=== PATIENT | female | born 1940 | race Caucasian/White ===

== ENCOUNTER 2022-10-02 09:25 | Inpatient (IN) | payer MEDICARE, SELFPAY ==
[2022-10-02] VITALS (32 sets, daily range): BP systolic 122–202; BP diastolic 54–161; PULSE 50–87; RESP 16–39; TEMP 36.3–36.6; O2SAT 93–100; BMI 21.5
--- NOTE | ~2022-10-02 | US_ITS ---
US abdomen limited DATE: 10/03/2022 09:12 INDICATION: Elevated liver function tests TECHNIQUE: Real-time imaging and Doppler analysis of liver, pancreas, gallbladder COMPARISON: None FINDINGS: No hepatic or pancreatic space-occupying mass lesion. Normal hepatopedal portal venous flow direction. No gallstones or gallbladder wall thickening or abnormal pericholecystic fluid collection . Negative sonographic Hyde's sign. The common bile duct measures up to 5 mm, normal. IMPRESSION: Negative Reviewed, dictated and finalized at [facility]. Reviewed, dictated and finalized at [facility]. ICAL CYTOGENETICIST SCIENTIST IMPRESSION: Negative
--- NOTE | ~2022-10-02 | XR_ITS ---
EXAMINATION: XR chest 1V portable Exam Date/Time: 10/05/2022 16:10 WELDER REPAIR HISTORY: shortness of breath Comparison: 10/02/2022. RESULT: Lines, tubes, and devices: None. Lungs and pleura: Unchanged diffuse reticular opacities, patchy mid and lower lung groundglass opaci ties, and bilateral angle blunting. Cardiomediastinal silhouette: Stable. Other: No acute osseous or upper abdominal finding. IMPRESSION: Unchanged pulmonary opacities likely representing multifocal pneumonia and/or pulmonary edema. Small bilateral effusions. Reviewed, dictated and finalized at [facility]. ER REPAIR IMPRESSION: Unchanged pulmonary opacities likely representing multifocal pneumonia and/or p ulmonary edema. Small bilateral effusions.
--- NOTE | ~2022-10-02 | XR_ITS ---
XR chest 1V portable DATE: 10/02/2022 09:45 INDICATION: Shortness of breath. Hypoxia. TECHNIQUE: Portable AP chest on 10/02/2022 at 0942 hours COMPARISON: None FINDINGS: Bilateral hyperinflation may be due to COPD. Heavily chest however considerably this appear ance. There are patchy bilateral mid and lower lung infiltrates, most prominent in the mid lung cao, rig ht greater than left. Findings suggest bilateral pneumonia. Pulmonary edema is an additional consider ation. There is a small right pleural effusion. Cardiomegaly. Aortic calcification and mild unfolding. Diffuse osteopenia. IMPRESSION: Bilateral primarily mid and lower lung infiltrates; diffusion diagnosis includes pneumoni a and pulmonary edema Cardiomegaly, mild right pleural effusion Aortic calcification Osteopenia Reviewed, dictated and finalized at location [facility]. CIAL ASSISTANT IMPRESSION: Bilateral primarily mid and lower lung infiltrates; diffusion diagn osis includes pneumonia and pulmonary edema Cardiomegaly, mild right pleural effusion Aortic calcification Osteopenia
--- NOTE | 2022-10-02 09:33 | ECG_ITS ---
Measurements Intervals [place] Rate: 67 P: 70 HI: 155 QRS: 76 QRSD: 90 T: 65 QT: 423 QTc: 447 Interpretive Statements SINUS RHYTHM POSSIBLE RIGHT ATRIAL ENLARGEMENT POSSIBLE LEFT ATRIAL ENLARGEMENT BORDERLINE R WAVE PROGRESSION, ANTERIOR LEADS BORDERLINE ST ABNORMALITY- INF/LAT LEADS BASELINE ARTIFACT- I, II, III, AVR, AVL, AVF, V1-V6 BORDERLINE ECG NO PREVIOUS ECG AVAILABLE FOR COMPARISON Electronically Signed On 10-02-2022 14:30:59 [employer] by Tomas Feliciano D.O.
--- NOTE | 2022-10-02 09:37 | ED.SOB ---
HPI - SOB/Dyspnea General Chief Complaint: Shortness of Breath/Dyspnea Stated Complaint: sob since 0300 History of Present Illness HPI Narrative: HPI limited due to acuity of illness This is an 82-year-old female with reported history of COPD, presented emergency department complaining of shortness of breath beginning at 3:00 this morning. She states he has been coughing with nonbloody sputum and denies fevers. She denies chest pain and has lower leg swelling. EMS reports on arrival the patient was satting in the 80s on room air, she was started on 4 L O2 with improvement to the mid 90s. No other treatments were given in route. Related Data Home Medications Medication Instructions Recorded Confirmed acetaminophen 325 mg tablet 650 mg PO Q4H PRN Pain 10/02/22 10/02/22 albuterol sulfate 90 mcg/actuation 2 puff inhalation Q6H PRN 10/02/22 10/02/22 aerosol inhaler Shortness Of Breath amiodarone 200 mg tablet 200 mg PO DAILY 10/02/22 10/02/22 amlodipine 5 mg tablet 5 mg PO DAILY 10/02/22 10/02/22 apixaban 2.5 mg tablet (Eliquis) 2.5 mg PO BID 10/02/22 10/02/22 aspirin 81 mg tablet,delayed 81 mg PO DAILY 10/02/22 10/02/22 release budesonide-formoterol HFA 160 2 puff inhalation BID 10/02/22 10/02/22 mcg-4.5 mcg/actuation aerosol inhaler (Symbicort) clonidine HCl 0.1 mg tablet 0.1 mg PO TID PRN Hypertension 10/02/22 10/02/22 folic acid 1 mg tablet 1 mg PO DAILY 10/02/22 10/02/22 lorazepam 0.5 mg tablet 0.5 mg PO Q8H PRN anxiety 10/02/22 10/02/22 metoprolol tartrate 50 mg tablet 100 mg PO BID 10/02/22 10/02/22 Allergies Allergy/AdvReac Type Severity Reaction Status Date / Time No Known Allergies Allergy Verified 10/02/22 09:46 Review of Systems Review of Systems: CONSTITUTIONAL: Fevers denies chills, or sweats. EYES: Denies visual changes, redness, or discharge. ENT: Denies rhinorrhea, congestion, sore throat, or otalgia. CARDIOVASCULAR: Denies chest pain, palpitations, or edema. RESPIRATORY: Cough and dyspnea GASTROINTESTINAL: Denies abdominal pain, nausea, vomiting, or diarrhea. GENITOURINARY: Denies dysuria or hematuria. SKIN: Denies rash or itching. MUSCULOSKELETAL: Denies back pain, joint pain, or myalgia. NEUROLOGIC: Denies headache, numbness, dizziness, or weakness. PSYCHIATRIC: Denies anxiety or depression. [facility] Past Medical History Medical History (Updated 10/02/22 @ 13:49 by Rina Gramajo PA-C) Chronic anticoagulation Chronic obstructive pulmonary disease Hypertension Paroxysmal atrial fibrillation Social History Social History Years smoked: 25 Smoking status: Former smoker Alcohol intake: former Substance use: never Substance use type: does not use Spiritual care concerns: No Exam Narrative: GENERAL: Well-developed, well-nourished, in mild distress due to dyspnea HEAD: Normocephalic, atraumatic. EYES: PERRLA and EOMI. ENT: Nares clear, no rhinorrhea or epistaxis. Mucous membranes moist. Oropharynx without tonsillar hypertrophy exudate or other lesions. NECK: Supple. No adenopathy or masses. No carotid bruits or JVD CHEST: Poor aeration bilaterally with rhonchi, no noted wheeze. Patient intermittently coughs with small amount of sputum HEART: Regular rate and rhythm. No murmur heard. Normal peripheral pulses. ABDOMEN: Soft, nontender, nondistended, normal active bowel sounds. EXTREMITIES: Normal range of motion. Trace bilateral lower extremity edema SKIN: Warm, dry, no rash. NEURO: No focal deficits. Alert and oriented x3. PSYCH: Normal mood and affect. Course Course Emergency Course: 12:05 - Chest x-ray shows pulmonary infiltrates and pattern consistent with pulmonary edema. Initial troponin negative. EKG not concerning for STEMI. Labs show BNP elevation to 1530 but otherwise unremarkable. Age-adjusted D-dimer is negative. White blood cell count 14.1 with hemoglobin 13 and platelets of 283. I suspect pneum
[2022-10-02 09:43] LABS: Basophils Absolute Auto 0.1 K/mm3 (0.0-0.1); Basophils Percent Auto 0.5 % (0.2-1.2); Eosinophils Absolute Auto 0.1 K/mm3 (0-0.3); Eosinophils Percent Auto 0.8 % (0-4.4); Hematocrit 42.4 % (37.0-47.0); Hemoglobin 13.7 g/dL (12.0-15.0); Immature Granulocyte Absolute 0.08 K/mm3 (0.00-0.031); Immature Granulocyte Percent A 0.6 % (0-0.5); Lymphocytes Absolute Auto 1.08 K/mm3 (0.9-3.2); Lymphocytes Percent Auto 7.7 % (18.3-44.2); Mean Corpuscular HGB Conc 32.3 g/dl (32-36); Mean Corpuscular Hemoglobin 32.4 pg (26-34); Mean Corpuscular Volume 100.2 fl (80-100); Mean Platelet Volume 9.7 fl (7.4-10.4); Monocytes Absolute Auto 1.2 K/mm3 (0.1-0.6); Monocytes Percent Auto 8.2 % (2.6-8.5); Neutrophils Absolute Auto 11.6 K/mm3 (1.3-6.7); Neutrophils Percent Auto 82.2 % (45.5-73.1); Platelet Count Result 283 k/mm3 (150-375); Red Blood Count 4.23 M/mm3 (4.2-5.4); Red Cell Distribution Width 13.8 % (11.5-14.5); White Blood Count 14.1 K/mm3 (4.5-10.0)
[2022-10-02 09:52] LABS: Lactic Acid Reflex 1.3 mmol/L (0.7-2.0)
[2022-10-02 09:54] LABS: Alanine Aminotransferase 127 U/L (6-35); Albumin Level 4.7 g/dL (3.5-5.1); Alkaline Phosphatase 131 U/L (38-126); Anion Gap 10 mmol/L (8-16); Aspartate Amino Transferase 76 U/L (14-36); Bilirubin,Total 0.8 mg/dL (0.2-1.3); Blood Urea Nitrogen 19 mg/dL (7-17); Calcium 9.4 mg/dL (8.4-10.2); Carbon Dioxide 30 mmol/L (22-30); Chloride 96 mmol/L (98-107); Estimated CRCL calculation 45 ml/min; Estimated Glomerular Filt Rate > 60; Glucose 108 mg/dL (65-110); Potassium 4.1 mmol/L (3.4-5.0); Sodium 136 mmol/L (137-145)
--- NOTE | 2022-10-02 10:00 | PC.NURSE ---
pts desat on 6 l nc. placed 15 l nrb. pt continuously pulling mask off. pt anxious, attempting to get out of bed. multiple family at bedside. ativan given per order.
[2022-10-02 10:03] LABS: D Dimer 0.67 ug/mL (<0.48)
[2022-10-02 10:05] LABS: NT Pro B Type Natriuretic Pept 1530 pg/mL (5-100); Troponin I < 0.012 ng/mL (0.000-0.034)
[2022-10-02] MEDS: LORazepam (*CRX) 0.5 MG TABLET PO ×2 (10:11→23:29)
[2022-10-02 10:18] LABS: Influenza A QL RT-PCR Negative (Negative); Influenza B QL RT-PCR Negative (Negative); SARS-CoV-2 RNA PCR Negative
[2022-10-02] MEDS: ALBUTEROL SULFATE NEB 2.5 MG/3 ML INH 5 MG INHALATION (10:18)
[2022-10-02] MEDS: IPRATROPIUM BR 0.02% INH SOLN 0.5 MG/2.5 ML VIAL INHALATION (10:18)
[2022-10-02] MEDS: LORazepam INJ (*CRX) 2 MG/ML VIAL (10:21)
[2022-10-02] MEDS: FUROSEMIDE INJ 40 MG/4 ML VIAL IV PUSH (12:25)
[2022-10-02 12:54] LABS: Alveolar/Arterial O2 Gradient 158.9 mmHg; Base Excess ABG 0.2 mEq/l (+/-2.0); Fractional Inspired Oxygen 40 %; HCO3 ABG 23.8 mEq/l (22.0-26.0); Oxygen Content ABG 16.2 %vol (16.0-22.0); Oxygen Saturation ABG 96.9 % (95.0-100.0); Oxyhemoglobin 94.8 % THb (90.0-100.0); PCO2 ABG 35.4 mmHg (35.0-45.0); PO2 ABG 85.6 mmHg (80.0-100.0); PO2 FiO2 Ratio Arterial Blood 2.14 %; Total Hemoglobin 12.1 g/dL (12.0-18.0); pH ABG 7.446 (7.350-7.450)
[2022-10-02 12:55] LABS: Device NON-INVASIVE VENT; Site Drawn LEFT BRACHIAL
[2022-10-02 12:56] LABS: Non-Invasive Expiratory Pressure 6 CMH2O; Non-Invasive Inspiratory Pressure 12 CMH2O; Non-Invasive Vent Rate 4 /MIN
[2022-10-02 13:05] LABS: Troponin I < 0.012 ng/mL (0.000-0.034)
--- NOTE | 2022-10-02 13:54 | ADMGEN ---
This patient, Paola Akhtar, was admitted to IMU Room 203-01. Patient/family oriented to hospital policies and general routines including ID bracelet, bed and alarms, visiting hours, pain management, procedures, bathroom and other care routines, personal items, smoking policy, room service/diet, and visiting hours. Information on how to activate the Rapid Response Team has been discussed. Patient/Family are encouraged to report perceived risks to care and to ask questions if they do not understand what they are told or what they should do.
[2022-10-02 15:47] LABS: Lactic Acid Reflex 1.6 mmol/L (0.7-2.0)
[2022-10-02 15:50] LABS: CRP 5.4 mg/dL (<1.0); Magnesium 1.5 mg/dL (1.6-2.3)
[2022-10-02 16:00] LABS: Troponin I < 0.012 ng/mL (0.000-0.034)
[2022-10-02 16:51] LABS: Procalcitonin 7.4 ng/mL
--- NOTE | 2022-10-02 17:00 | PM.IMHP ---
H&P: HPI History of Present Illness Date/Time: 10/02/22 17:00 Chief Complaint: Shortness of breath. Narrative: This is an 82-year-old female with dementia, chronic obstructive pulmonary disease, hypertension, and paroxysmal atrial fibrillation on chronic anticoagulation who presented to the emergency department via EMS from [facility] for evaluation of shortness of breath. She seems to be sundowning at the time my evaluation and is not entirely cooperative with history and exam and thus a majority of the following is supplemented via a review of her electronic medical records. About 30 minutes prior she was aggressive and combative with staff but is much more calm however still does not want answer questions. She did say that she was not having any chest pain or shortness of breath but answered no other questions. According to the chart, she has been coughing for the last couple of days and early this morning at about 03:00 she started to feel short of breath. Emergency services were contacted and on EMS arrival her SpO2 was in the 80s on room air and she was placed on 4 liters nasal cannula with improvement into the mid 90s. Chest x-ray done on arrival showed bilateral primary mid and lower lung infiltrates with a differential diagnosis to include pneumonia pulmonary edema as well as cardiomegaly with mild right pleural effusion. Labs were significant for a WBC of 14.1, proBNP 1530, undetectable troponin, and AST/ALT elevation. She tested negative for influenza and COVID. In the ED she received a nebulizer treatment, 40 milligrams of furosemide, and azithromycin and ceftriaxone and she was admitted to the floor. Review of Systems Review of Systems: Unable to be obtained accurately as she is not cooperative at this time. [facility] Past Medical History Medical History (Updated 10/02/22 @ 21:12 by Rina Gramajo PA-C) Chronic anticoagulation Chronic obstructive pulmonary disease Dementia Hypertension Paroxysmal atrial fibrillation Surgical History Surgical History (Updated 10/02/22 @ 21:12 by Rina Gramajo PA-C) Surgical history unknown Family History Family History (Updated 10/02/22 @ 21:12 by Rina Gramajo PA-C) Other Family history unknown Social History Social History (Updated 10/02/22 @ 21:13 by Rina Gramajo PA-C) Social History: Surrogate medical decision maker: Dev Akhtar, son. Code status: Do not resuscitate. Years smoked: 25 Smoking status: Former smoker Alcohol intake: former Substance use: never Substance use type: does not use Additional living arrangements comments: Assisted living at [facility]. Spiritual care concerns: No Meds Home Medications and Allergies Home Medications Medication Instructions Recorded Confirmed Type acetaminophen 325 mg tablet 650 mg PO Q4H PRN Pain 10/02/22 10/02/22 History albuterol sulfate 90 mcg/actuation 2 puff inhalation Q6H PRN 10/02/22 10/02/22 History aerosol inhaler Shortness Of Breath amiodarone 200 mg tablet 200 mg PO DAILY 10/02/22 10/02/22 History amlodipine 5 mg tablet 5 mg PO DAILY 10/02/22 10/02/22 History apixaban 2.5 mg tablet (Eliquis) 2.5 mg PO BID 10/02/22 10/02/22 History aspirin 81 mg tablet,delayed 81 mg PO DAILY 10/02/22 10/02/22 History release budesonide-formoterol HFA 160 2 puff inhalation BID 10/02/22 10/02/22 History mcg-4.5 mcg/actuation aerosol inhaler (Symbicort) clonidine HCl 0.1 mg tablet 0.1 mg PO TID PRN Hypertension 10/02/22 10/02/22 History folic acid 1 mg tablet 1 mg PO DAILY 10/02/22 10/02/22 History lorazepam 0.5 mg tablet 0.5 mg PO Q8H PRN anxiety 10/02/22 10/02/22 History metoprolol tartrate 50 mg tablet 100 mg PO BID 10/02/22 10/02/22 History Allergies Allergy/AdvReac Type Severity Reaction Status Date / Time No Known Allergies Allergy Verified 10/02/22 09:46 Vital Signs Vital Signs - 24 hr 10/02/22 09:33 10/02/22 10:19 10/02/22 10:41 Pulse Rate 81 80 R
[2022-10-02] MEDS: METOPROLOL TARTRATE 50 MG TAB 100 MG PO (23:28)
[2022-10-02] MEDS: APIXABAN 2.5 MG TABLET PO (23:29)
[2022-10-03] VITALS (16 sets, daily range): BP systolic 106–158; BP diastolic 52–76; PULSE 65–106; RESP 18–22; TEMP 36.6–36.9; O2SAT 86–96; BMI 21.5
[2022-10-03] MEDS: HALOPERIDOL LACTATE 5 MG/ML VIAL 2.5 MG IM (02:00)
[2022-10-03 04:32] LABS: Hematocrit 35.6 % (37.0-47.0); Hemoglobin 11.7 g/dL (12.0-15.0); Mean Corpuscular HGB Conc 32.9 g/dl (32-36); Mean Corpuscular Hemoglobin 31.8 pg (26-34); Mean Corpuscular Volume 96.7 fl (80-100); Mean Platelet Volume 10.2 fl (7.4-10.4); Platelet Count Result 218 k/mm3 (150-375); Red Blood Count 3.68 M/mm3 (4.2-5.4); Red Cell Distribution Width 13.7 % (11.5-14.5); White Blood Count 15.4 K/mm3 (4.5-10.0)
[2022-10-03 05:44] LABS: Hepatitis B Surface Antigen Negative (Negative)
[2022-10-03 05:50] LABS: HAV RESULT Negative (Negative); Hepatitis B Core IgM Result Negative (Negative)
[2022-10-03 05:59] LABS: Alanine Aminotransferase 83 U/L (6-35); Albumin Level 3.7 g/dL (3.5-5.1); Alkaline Phosphatase 104 U/L (38-126); Anion Gap 11 mmol/L (8-16); Aspartate Amino Transferase 54 U/L (14-36); Bilirubin,Total 0.9 mg/dL (0.2-1.3); Blood Urea Nitrogen 23 mg/dL (7-17); Calcium 8.7 mg/dL (8.4-10.2); Carbon Dioxide 24 mmol/L (22-30); Chloride 98 mmol/L (98-107); Estimated CRCL calculation 31 ml/min; Estimated Glomerular Filt Rate 60; Glucose 96 mg/dL (65-110); Magnesium 1.6 mg/dL (1.6-2.3); Potassium 3.9 mmol/L (3.4-5.0); Sodium 133 mmol/L (137-145)
[2022-10-03] MEDS: FLUTICASONE/SALMETEROL 115-21 MCG INHALER 1 PUFF 2 PUFF INHALATION (08:28)
[2022-10-03] MEDS: AMIODARONE HCL 200 MG TABLET PO (09:09)
[2022-10-03] MEDS: amLODIPine BESYLATE 5 MG TABLET PO (09:09)
[2022-10-03] MEDS: FOLIC ACID 1 MG TABLET PO (09:09)
[2022-10-03] MEDS: FUROSEMIDE 40 MG TABLET PO (09:09)
[2022-10-03] MEDS: METOPROLOL TARTRATE 50 MG TAB 100 MG PO ×2 (09:09→20:40)
[2022-10-03] MEDS: ASPIRIN 81 MG ENTERIC TABLET PO (09:09)
[2022-10-03] MEDS: APIXABAN 2.5 MG TABLET PO ×2 (09:09→16:41)
--- NOTE | 2022-10-03 10:18 | PM.IMPN ---
Progress Note: A&P Assessment and Plan (1) Acute respiratory failure: Code(s): J96.00 - Acute respiratory failure, unspecified whether with hypoxia or hypercapnia Status: Acute Assessment and Plan: likely secondary to pneumonia and mild bilateral pleural effusion. Continue oxygen per protocol to keep saturations above 90%. (2) Community acquired pneumonia: Code(s): J18.9 - Pneumonia, unspecified organism Status: Acute Assessment and Plan: Continue azithromycin and Rocephin. Follow cultures (3) Chronic obstructive pulmonary disease: Code(s): J44.9 - Chronic obstructive pulmonary disease, unspecified Status: Acute Assessment and Plan: stable. No wheezing. Continue inhalers (4) Paroxysmal atrial fibrillation: Code(s): I48.0 - Paroxysmal atrial fibrillation Status: Acute Assessment and Plan: on Eliquis, amiodarone (5) Pulmonary edema: Code(s): J81.1 - Chronic pulmonary edema Status: Acute Assessment and Plan: mild bilateral pleural effusion. Not in significant distress. Will start on low-dose Lasix p.o.. Echo ordered (6) Hypertension: Code(s): I10 - Essential (primary) hypertension Status: Acute Assessment and Plan: continue Norvasc, clonidine, Lasix Subjective Date/time seen: 10/03/22 10:18 patient reports minimal shortness of breath this morning. States she feels weak Review of Systems Review of Systems: All systems reviewed & are unremarkable except as noted in HPI and below Exam Narrative: General: Mildly ill-appearing female lying on the right side in bed. Weight: 51.8 kilograms. BMI: 21.6. HEENT: PERRL, EOMI. Sclera anicteric. Oral mucosa moist. Neck: Supple. Respiratory: Respirations are nonlabored. Bilateral crackles noted, right greater than left with faint expiratory wheezing. Cardiovascular: Regular rate and rhythm with S1-S2. Gastrointestinal: Abdomen is soft and nontender with positive bowel sounds. Skin: Warm and dry. No rash or lesions on limited exam. Extremities: No cyanosis, clubbing, or edema. Radial and pedal pulses intact. Neurological: Alert at least to name, she did not answer any other orientation question. Cranial nerves 2-12 are grossly intact. No gross facial asymmetry. She was noted to move upper and lower extremities without obvious limitation. Psychiatric: normal Objective Data Vital Signs Vital Signs: Vital Signs - 24 hr 10/02/22 10:19 10/02/22 10:41 10/02/22 10:45 Temperature Pulse Rate 81 80 82 Respiratory Rate 32 H 26 H 38 H Blood Pressure Pulse Oximetry 94 Oxygen Delivery BiPAP Oxygen Flow Rate Fraction of Inspired Oxygen 10/02/22 10:30 10/02/22 10:31 10/02/22 10:45 Temperature Pulse Rate 80 86 80 Respiratory Rate 28 H 26 H 32 H Blood Pressure 166/113 H Pulse Oximetry Oxygen Delivery Oxygen Flow Rate Fraction of Inspired Oxygen 10/02/22 10:46 10/02/22 11:25 10/02/22 11:30 Temperature Pulse Rate 80 66 63 Respiratory Rate 30 H 39 H 36 H Blood Pressure 185/161 H Pulse Oximetry Oxygen Delivery Oxygen Flow Rate Fraction of Inspired Oxygen 10/02/22 11:46 10/02/22 12:13 10/02/22 13:19 Temperature Pulse Rate 57 L 58 L 50 L Respiratory Rate 33 H 30 H 22 H Blood Pressure 122/76 Pulse Oximetry 98 96 Oxygen Delivery BiPAP Oxygen Flow Rate Fraction of Inspired Oxygen 10/02/22 14:00 10/02/22 14:10 10/02/22 14:41 Temperature 97.8 F Pulse Rate 57 L 57 L Respiratory Rate 30 H 29 H Blood Pressure 131/79 Pulse Oximetry 100 100 100 Oxygen Delivery BiPAP BiPAP Oxygen Flow Rate Fraction of Inspired Oxygen 30 10/02/22 14:07 10/02/22 16:00 10/02/22 16:00 Temperature 97.4 F L Pulse Rate 56 L 76 Respiratory Rate 16 Blood Pressure 146/54 H Pulse Oximetry 100 96 Oxygen Delivery Nasal Cannula Oxygen Flow Rate 4 Fraction of I
--- NOTE | 2022-10-03 11:23 | PC.NURSE ---
Patient transferred to [facility] in stable condition. Report called to Anabel WESTFALL.
--- NOTE | 2022-10-03 11:24 | PC.NURSE ---
Patient transfer received from IMU to room 244 10/03/22 [id number].
[2022-10-03 12:28] LABS: Free T4 Free Thyroxine Reflex 3.02 ng/dL (0.78-2.19)
[2022-10-03 13:13] LABS: Hepatitis C Virus Antibody Negative (Negative)
--- NOTE | 2022-10-03 13:26 | PCPTNOTE ---
Spoke with hospitalist this date, pt OK to participate in physical therapy and OK with Bedrest orders being removed. RN made aware.
--- NOTE | 2022-10-03 14:13 | ECHO_ITS ---
Patient Info Name: Paola Akhtar Age: 82 years : 1940 Gender: Female Ht: 67 in Wt: 149 lbs BSA: 1.79 m2 HR: 88 bpm BP: 158 / 76 mmHg Heart Rhythm: Atrial Fibrillation Technical Quality: Fair Exam Date: 10/03/2022 11:40 AM Exam Location: [facility] Patient Status: Inpatient Admit Date: 10/02/2022 Staff Ordering Physician: Rina Gramajo PA-C Certified Surgical First Assistant: Alexus Mclaughlin RDCS Attending Provider: Zeferino Swan MD Referring Physician: Avila FRANK; Exam Type: CA echo doppler color flow Study Info Indications - cardiomyopathy, pleural effusion, HTN, AFIB Complete two-dimensional, color flow and Doppler transthoracic echocardiogram is performed. Summary 1. Complete two-dimensional, color flow and Doppler transthoracic echocardiogram is performed. 2. Left ventricular systolic function is normal, estimated at 60-65%. 3. Right ventricular systolic function is normal. 4. There is mild mitral valve regurgitation. Left Ventricle Left ventricular chamber dimension is normal. Left ventricular systolic function is normal, estimated at 60-65%. There is no increased left ventricular wall thickness. The left ventricular diastolic function is indeterminate. Right Ventricle Right ventricular chamber dimension is normal. Right ventricular systolic function is normal. Left Atria Left atrial chamber dimension is normal. Right Atria Right atrial chamber dimension is normal. Atrial Septum Intact interatrial septum visualized by color flow imaging. Aortic Valve The aortic valve is not well visualized. There is no aortic valve stenosis. There is no aortic valve regurgitation. Pulmonic Valve The pulmonic valve is not well visualized. Mitral Valve The mitral valve has normal leaflets. There is no mitral valve stenosis. There is mild mitral valve regurgitation. The mitral valve annulus is mildly calcified. Tricuspid Valve The tricuspid valve leaflets are normal. There is trace tricuspid valve regurgitation. Pericardium/Pleural There is no pericardial effusion. Inferior Vena Cava Normal inferior vena cava with >50% collapse upon inspiration consistent with normal right atrial pressure. Aorta The aortic root size at the sinus of Valsalva is normal. There is mild aortic atherosclerosis. Left Ventricular Outflow Tract Name Value Normal LVOT 2D LVOT Diameter 2.0 cm LVOT Doppler LVOT Peak Gradient 1 mmHg LVOT Mean Gradient 1 mmHg LVOT VTI 13 cm LVOT VTI/AV VTI Ratio 0.7 LVOT Stroke Volume 39 ml LVOT CO 3.0 l/min LVOT CI 1.7 l/min/m2 Pulmonic Valve Name Value Normal RVOT Doppler RVOT P
[2022-10-04] VITALS (15 sets, daily range): BP systolic 130–152; BP diastolic 44–48; PULSE 61–102; RESP 16–20; TEMP 36–36.6; O2SAT 94–99
[2022-10-04] MEDS: FLUTICASONE/SALMETEROL 115-21 MCG INHALER 1 PUFF 2 PUFF INHALATION ×2 (07:36→19:04)
--- NOTE | 2022-10-04 08:01 | PM.IMPN ---
Progress Note: A&P Assessment and Plan (1) Acute respiratory failure: Code(s): J96.00 - Acute respiratory failure, unspecified whether with hypoxia or hypercapnia Status: Acute Assessment and Plan: likely secondary to pneumonia and mild bilateral pleural effusion. Continue oxygen per protocol to keep saturations above 90%. (2) Community acquired pneumonia: Code(s): J18.9 - Pneumonia, unspecified organism Status: Acute Assessment and Plan: Continue azithromycin and Rocephin. Follow cultures (3) Chronic obstructive pulmonary disease: Code(s): J44.9 - Chronic obstructive pulmonary disease, unspecified Status: Acute Assessment and Plan: stable. No wheezing. Continue inhalers (4) Paroxysmal atrial fibrillation: Code(s): I48.0 - Paroxysmal atrial fibrillation Status: Acute Assessment and Plan: on Eliquis, amiodarone (5) Pulmonary edema: Code(s): J81.1 - Chronic pulmonary edema Status: Acute Assessment and Plan: mild bilateral pleural effusion. Not in significant distress. Lasix p.o.. Echo ordered (6) Hypertension: Code(s): I10 - Essential (primary) hypertension Status: Acute Assessment and Plan: continue Norvasc, clonidine, Lasix Plan DVT prophylaxis with SCDs GI prophylaxis not indicated Code status full code Subjective Date/time seen: 10/04/22 08:01 Interval history: No overnight events noted. No chest pain or shortness of breath. No nausea, vomiting or diarrhea. No fevers or chills. Review of Systems Review of Systems: 12 point review of systems was assessed and was negative except as noted in the HPI Exam Narrative: General: No acute distress, alert and oriented per baseline HEENT: Atraumatic, normocephalic, mucous membranes moist CV: Regular rate and rhythm, S1, S2 Lungs: Clear to auscultation bilaterally, no rales or crackles noted, no wheezes, good air entry Abdomen: Soft, nontender, nondistended Extremities: Normal to inspection Skin: No rashes noted, no lesions or wounds seen Psych: Euthymic, normal affect Objective Data Vital Signs Vital Signs: Vital Signs - 24 hr 10/03/22 08:30 10/03/22 09:09 10/03/22 10:00 Temperature Pulse Rate 97 89 Respiratory Rate Blood Pressure Pulse Oximetry 96 Oxygen Delivery Nasal Cannula Oxygen Flow Rate 4 10/03/22 12:04 10/03/22 13:52 10/03/22 14:34 Temperature Pulse Rate 95 Respiratory Rate Blood Pressure Pulse Oximetry 92 Oxygen Delivery High Flow Therapy with Na Nasal Cannula Oxygen Flow Rate 2 2 10/03/22 14:35 10/03/22 14:42 10/03/22 16:01 Temperature 98.5 F Pulse Rate 72 99 Respiratory Rate 18 Blood Pressure 106/52 L Pulse Oximetry 92 Oxygen Delivery Nasal Cannula Oxygen Flow Rate 1 10/03/22 20:07 10/03/22 20:37 10/03/22 20:40 Temperature 97.9 F Pulse Rate 106 H 76 94 Respiratory Rate 18 18 Blood Pressure 125/67 Pulse Oximetry 86 L 94 Oxygen Delivery Nasal Cannula Oxygen Flow Rate 2 10/03/22 20:00 10/04/22 00:00 10/04/22 03:58 Temperature 96.8 F L Pulse Rate 94 91 66 Respiratory Rate 16 Blood Pressure 152/48 H Pulse Oximetry 99 Oxygen Delivery Oxygen Flow Rate 10/04/22 04:00 10/04/22 07:37 Temperature Pulse Rate 67 Respiratory Rate Blood Pressure Pulse Oximetry 95 Oxygen Delivery Nasal Cannula Oxygen Flow Rate 2 Intake/Output Intake/Output: Intake & Output 10/01/22 10/02/22 10/03/22 10/04/22 23:59 23:59 23:59 23:59 Intake Total 500 860 290 Output Total 2350 Balance 500 -1490 290 Meds/Results Medications: Active Medications Generic Name Dose Route Start Last Admin Trade Name Freq PRN Reason Stop Dose Admin Acetaminophen 650 mg 10/02/22 21:25 Acetaminophen 325 Mg Tablet PO Q4H PRN Pain Rated 1-3 Albuterol 2 puff 10/02/22 21:25 Albuterol Sulf
[2022-10-04] MEDS: FOLIC ACID 1 MG TABLET PO (08:39)
[2022-10-04] MEDS: APIXABAN 2.5 MG TABLET PO ×2 (08:39→17:25)
[2022-10-04] MEDS: ASPIRIN 81 MG ENTERIC TABLET PO (08:39)
[2022-10-04] MEDS: amLODIPine BESYLATE 5 MG TABLET PO (08:39)
[2022-10-04] MEDS: FUROSEMIDE 40 MG TABLET PO (08:39)
[2022-10-04] MEDS: AMIODARONE HCL 200 MG TABLET PO (08:39)
[2022-10-04] MEDS: METOPROLOL TARTRATE 50 MG TAB 100 MG PO ×2 (08:41→21:46)
[2022-10-05] VITALS (13 sets, daily range): BP systolic 104–143; BP diastolic 48–79; PULSE 60–120; RESP 16–20; TEMP 36.2–36.6; O2SAT 93–98
[2022-10-05 06:06] LABS: Basophils Percent Auto 0.4 % (0.2-1.2); Eosinophils Absolute Auto 0.2 K/mm3 (0-0.3); Eosinophils Percent Auto 1.8 % (0-4.4); Hematocrit 33.2 % (37.0-47.0); Hemoglobin 10.8 g/dL (12.0-15.0); Immature Granulocyte Absolute 0.05 K/mm3 (0.00-0.031); Immature Granulocyte Percent A 0.6 % (0-0.5); Lymphocytes Absolute Auto 0.89 K/mm3 (0.9-3.2); Lymphocytes Percent Auto 9.8 % (18.3-44.2); Mean Corpuscular HGB Conc 32.5 g/dl (32-36); Mean Corpuscular Hemoglobin 32.6 pg (26-34); Mean Corpuscular Volume 100.3 fl (80-100); Mean Platelet Volume 9.6 fl (7.4-10.4); Monocytes Absolute Auto 1.1 K/mm3 (0.1-0.6); Neutrophils Absolute Auto 6.8 K/mm3 (1.3-6.7); Neutrophils Percent Auto 75.4 % (45.5-73.1); Platelet Count Result 217 k/mm3 (150-375); Red Blood Count 3.31 M/mm3 (4.2-5.4); Red Cell Distribution Width 13.5 % (11.5-14.5); White Blood Count 9.1 K/mm3 (4.5-10.0)
[2022-10-05 06:52] LABS: Alanine Aminotransferase 44 U/L (6-35); Albumin Level 3.1 g/dL (3.5-5.1); Alkaline Phosphatase 100 U/L (38-126); Anion Gap 5 mmol/L (8-16); Aspartate Amino Transferase 27 U/L (14-36); Bilirubin,Total 0.6 mg/dL (0.2-1.3); Blood Urea Nitrogen 26 mg/dL (7-17); Calcium 8.2 mg/dL (8.4-10.2); Carbon Dioxide 38 mmol/L (22-30); Chloride 94 mmol/L (98-107); Estimated CRCL calculation 31 ml/min; Estimated Glomerular Filt Rate 60; Glucose 107 mg/dL (65-110); Potassium 2.7 mmol/L (3.4-5.0); Sodium 137 mmol/L (137-145)
[2022-10-05] MEDS: FOLIC ACID 1 MG TABLET PO (08:22)
[2022-10-05] MEDS: ASPIRIN 81 MG ENTERIC TABLET PO (08:22)
[2022-10-05] MEDS: POTASSIUM CHLORIDE 20 MEQ TABLET 40 MEQ PO (08:22)
[2022-10-05] MEDS: AMIODARONE HCL 200 MG TABLET PO (08:22)
[2022-10-05] MEDS: METOPROLOL TARTRATE 50 MG TAB 100 MG PO ×2 (08:22→20:10)
[2022-10-05] MEDS: amLODIPine BESYLATE 5 MG TABLET PO (08:22)
[2022-10-05] MEDS: APIXABAN 2.5 MG TABLET PO ×2 (08:22→17:43)
[2022-10-05] MEDS: FUROSEMIDE 40 MG TABLET PO (08:22)
[2022-10-05] MEDS: MAGNESIUM SULF 4 GM/WATER100ML 4 GM/100 ML BAG IVPB (10:27)
[2022-10-05] MEDS: FLUTICASONE/SALMETEROL 115-21 MCG INHALER 1 PUFF 2 PUFF INHALATION ×3 (10:52→22:07)
[2022-10-05] MEDS: POTASSIUM CHLORIDE INJ 40 MEQ in SODIUM CHLORIDE 0.9% IV 500 ML 130 MEQ IVPB (11:38)
--- NOTE | 2022-10-05 12:00 | P.PNIM_ITS ---
Progress Note: A&P Assessment and Plan (1) Acute respiratory failure: Code(s): J96.00 - Acute respiratory failure, unspecified whether with hypoxia or hypercapnia Status: Acute Assessment and Plan: * Presented with a saturation in the 80s * Sat improved with 4L NC in the 90s * likely secondary to pneumonia and mild bilateral pleural effusion. * Continue oxygen per protocol to keep saturations above 90% * Chest xray showed mid to lower lung infiltrates PNA vs Pulm Edema * Furosemide 40mg PO daily * Currently on 2LNC * One dose of IV Lasix with bilateral lower lobe crackles (2) Community acquired pneumonia: Code(s): J18.9 - Pneumonia, unspecified organism Status: Acute Assessment and Plan: * Xray showed mid to lower left lung zones * Continue azithromycin and Rocephin. * Follow cultures * Neb treatments PRN * Afrin spray (3) Chronic obstructive pulmonary disease: Code(s): J44.9 - Chronic obstructive pulmonary disease, unspecified Status: Acute Assessment and Plan: * stable. * No wheezing. * Continue inhalers * Not in acute exacerbation (4) Paroxysmal atrial fibrillation: Code(s): I48.0 - Paroxysmal atrial fibrillation Status: Acute Assessment and Plan: * HR stable at this time * on Eliquis, amiodarone (5) Pulmonary edema: Qualifiers: Chronicity: acute Qualified Code(s): J81.0 - Acute pulmonary edema Code(s): J81.1 - Chronic pulmonary edema Status: Acute Assessment and Plan: * mild bilateral pleural effusion. * Not in significant distress. * Lasix p.o.. * Echo EF 60-65% with diastolic diastolic function indeterminate * Daily weight * Trend urine output (6) Hypertension: Code(s): I10 - Essential (primary) hypertension Status: Acute Assessment and Plan: * continue Norvasc, clonidine, Lasix * BP 135/57 * Trend BP * Adjust therapy as indicated (7) Electrolyte imbalance: Code(s): E87.8 - Other disorders of electrolyte and fluid balance, not elsewhere classified Status: Acute Assessment and Plan: * Mg is 1.6, K 2.7 * Trend labs * replace with 4gm mag and 40 PO and 40 IV of potassium * replace as indicated Plan DVT prophylaxis with SCDs GI prophylaxis not indicated Code status full code Time Spent With Patient Time with patient: Greater than 35 minutes Subjective Date/time seen: 10/05/22 1200 Interval history: 10/05/221199 Patient was sitting in the chair. She is still on 2LNC. Did attempt to wean her to room air, however, she was sating in the low to mid 80s. She does not have any complaints, at this time. She is doing ok. She denies any chest pain, shortness of breath, nausea, vomiting, diarrhea, constipation. She is currently on 2LNC and sating ok. She did have bilateral coarse crackles in the bilateral lower extremities. Her son was present, and he did have some questions, and all were answered. K and mag were noted to be low, replacement given. 10/04/22 0801 No overnight events noted. No chest pain or shortness of breath. No nausea, vomiting or diarrhea. No fevers or chills. 10/03/22 1018 patient reports minimal shortness of breath this morning.? States she feels weak
--- NOTE | 2022-10-05 12:00 | PM.IMPN ---
Progress Note: A&P Assessment and Plan (1) Acute respiratory failure: Code(s): J96.00 - Acute respiratory failure, unspecified whether with hypoxia or hypercapnia Status: Acute Assessment and Plan: Presented with a saturation in the 80s Sat improved with 4L NC in the 90s likely secondary to pneumonia and mild bilateral pleural effusion. Continue oxygen per protocol to keep saturations above 90% Chest xray showed mid to lower lung infiltrates PNA vs Pulm Edema Furosemide 40mg PO daily Currently on 2LNC One dose of IV Lasix with bilateral lower lobe crackles (2) Community acquired pneumonia: Code(s): J18.9 - Pneumonia, unspecified organism Status: Acute Assessment and Plan: Xray showed mid to lower left lung zones Continue azithromycin and Rocephin. Follow cultures Neb treatments PRN Afrin spray (3) Chronic obstructive pulmonary disease: Code(s): J44.9 - Chronic obstructive pulmonary disease, unspecified Status: Acute Assessment and Plan: stable. No wheezing. Continue inhalers Not in acute exacerbation (4) Paroxysmal atrial fibrillation: Code(s): I48.0 - Paroxysmal atrial fibrillation Status: Acute Assessment and Plan: HR stable at this time on Eliquis, amiodarone (5) Pulmonary edema: Qualifiers: Chronicity: acute Qualified Code(s): J81.0 - Acute pulmonary edema Code(s): J81.1 - Chronic pulmonary edema Status: Acute Assessment and Plan: mild bilateral pleural effusion. Not in significant distress. Lasix p.o.. Echo EF 60-65% with diastolic diastolic function indeterminate Daily weight Trend urine output (6) Hypertension: Code(s): I10 - Essential (primary) hypertension Status: Acute Assessment and Plan: continue Norvasc, clonidine, Lasix BP 135/57 Trend BP Adjust therapy as indicated (7) Electrolyte imbalance: Code(s): E87.8 - Other disorders of electrolyte and fluid balance, not elsewhere classified Status: Acute Assessment and Plan: Mg is 1.6, K 2.7 Trend labs replace with 4gm mag and 40 PO and 40 IV of potassium replace as indicated Plan DVT prophylaxis with SCDs GI prophylaxis not indicated Code status full code Time Spent With Patient Time with patient: Greater than 35 minutes Subjective Date/time seen: 10/05/22 1200 Interval history: 10/05/221199 Patient was sitting in the chair. She is still on 2LNC. Did attempt to wean her to room air, however, she was sating in the low to mid 80s. She does not have any complaints, at this time. She is doing ok. She denies any chest pain, shortness of breath, nausea, vomiting, diarrhea, constipation. She is currently on 2LNC and sating ok. She did have bilateral coarse crackles in the bilateral lower extremities. Her son was present, and he did have some questions, and all were answered. K and mag were noted to be low, replacement given. 10/04/22 0801 No overnight events noted. No chest pain or shortness of breath. No nausea, vomiting or diarrhea. No fevers or chills. 10/03/22 1018 patient reports minimal shortness of breath this morning.? States she feels weak 10/02/22 1700 This is an 82-year-old female with dementia, chronic obstructive pulmonary disease, hypertension, and paroxysmal atrial fibrillation on chronic anticoagulation who presented to the emergency department via EMS from [place] for evaluation of shortness of breath. She seems to be sundowning at the time my evaluation and is not entirely cooperative with history and exam and thus a majority of the following is supplemented via a review of her electronic medical records. About 30 minutes prior she was aggressive and combative with staff but is much more calm however still does not want answer q
[2022-10-05] MEDS: FUROSEMIDE INJ 40 MG/4 ML VIAL IV PUSH (13:41)
[2022-10-06] VITALS (11 sets, daily range): BP systolic 137–147; BP diastolic 48–59; PULSE 60–89; RESP 16–18; TEMP 36–36.6; O2SAT 92–99
[2022-10-06 05:48] LABS: Basophils Absolute Auto 0.1 K/mm3 (0.0-0.1); Basophils Percent Auto 0.8 % (0.2-1.2); Eosinophils Absolute Auto 0.4 K/mm3 (0-0.3); Eosinophils Percent Auto 4.9 % (0-4.4); Hemoglobin 10.4 g/dL (12.0-15.0); Immature Granulocyte Absolute 0.05 K/mm3 (0.00-0.031); Immature Granulocyte Percent A 0.7 % (0-0.5); Lymphocytes Absolute Auto 1.08 K/mm3 (0.9-3.2); Mean Corpuscular HGB Conc 31.5 g/dl (32-36); Mean Corpuscular Hemoglobin 31.2 pg (26-34); Mean Corpuscular Volume 99.1 fl (80-100); Mean Platelet Volume 9.8 fl (7.4-10.4); Monocytes Absolute Auto 1.1 K/mm3 (0.1-0.6); Neutrophils Percent Auto 65.6 % (45.5-73.1); Platelet Count Result 249 k/mm3 (150-375); Red Blood Count 3.33 M/mm3 (4.2-5.4); Red Cell Distribution Width 13.5 % (11.5-14.5); White Blood Count 7.7 K/mm3 (4.5-10.0)
[2022-10-06 06:01] LABS: Magnesium 2.2 mg/dL (1.6-2.3)
[2022-10-06 06:37] LABS: Alanine Aminotransferase 36 U/L (6-35); Albumin Level 3.2 g/dL (3.5-5.1); Alkaline Phosphatase 102 U/L (38-126); Anion Gap 8 mmol/L (8-16); Aspartate Amino Transferase 25 U/L (14-36); Bilirubin,Total 0.5 mg/dL (0.2-1.3); Blood Urea Nitrogen 28 mg/dL (7-17); Carbon Dioxide 36 mmol/L (22-30); Chloride 94 mmol/L (98-107); Estimated CRCL calculation 31 ml/min; Estimated Glomerular Filt Rate 60; Glucose 98 mg/dL (65-110); Potassium 3.1 mmol/L (3.4-5.0); Sodium 138 mmol/L (137-145)
[2022-10-06] MEDS: amLODIPine BESYLATE 5 MG TABLET PO (08:38)
[2022-10-06] MEDS: APIXABAN 2.5 MG TABLET PO ×2 (08:38→17:00)
[2022-10-06] MEDS: ASPIRIN 81 MG ENTERIC TABLET PO (08:38)
[2022-10-06] MEDS: FOLIC ACID 1 MG TABLET PO (08:38)
[2022-10-06] MEDS: POTASSIUM CHLORIDE 20 MEQ PACKET (FOR LIQUID) 40 MEQ PO (08:38)
[2022-10-06] MEDS: FUROSEMIDE 40 MG TABLET PO (08:38)
--- NOTE | 2022-10-06 11:48 | PM.DS ---
DS: Summary Time Spent with Patient Time attestation: Total time spent providing and/or coordinating discharge services: DS: Data Data Completed and Pending Labs on day of discharge: Labs from last 24 hours 10/06/22 10/06/22 10/06/22 05:02 05:02 05:02 WBC 7.7 RBC 3.33 L Hgb 10.4 L Hct 33.0 L MCV 99.1 MCH 31.2 MCHC 31.5 L RDW 13.5 Plt Count 249 MPV 9.8 Immature Gran % (Auto) 0.7 H Neut % (Auto) 65.6 Lymph % (Auto) 14.0 L [place] % (Auto) 14.0 H Eos % (Auto) 4.9 H Baso % (Auto) 0.8 Lymph # (Auto) 1.08 [place] # (Auto) 1.1 H Eos # (Auto) 0.4 H Baso # (Auto) 0.1 Abs Immat Gran (auto) 0.05 H Absolute Neuts (auto) 5.0 Absolute Nucleated RBC 0.0 Nucleated RBC % 0.0 Sodium 138 Potassium 3.1 L Chloride 94 L Carbon Dioxide 36 H Anion Gap 8 BUN 28 H Creatinine 0.90 Estim Creat Clear Calc 31 Estimated GFR 60 Glucose 98 Calcium 8.0 L Magnesium 2.2 Total Bilirubin 0.5 AST 25 ALT 36 H Alkaline Phosphatase 102 Total Protein 6.0 L Albumin 3.2 L Preliminary micro results at discharge 10/02/22 11:08 Blood Culture - Preliminary Blood 10/02/22 11:08 Blood Culture - Preliminary Blood Discharge Plan Discharge Patient Disposition: [facility] Discharge Instructions: continue PT/OT treatments with program at [facility]. Patient Instructions: Antibiotic Form Stand Alone Forms: General Discharge Information Discharge Medications: No Action clonidine HCl 0.1 mg tablet 0.1 mg PO TID PRN (Reason: Hypertension) Rx Instructions: take for SBP >180 acetaminophen 325 mg tablet 650 mg PO Q4H PRN (Reason: Pain) amiodarone 200 mg tablet 200 mg PO DAILY Rx Instructions: Hold if heart rate <64 amlodipine 5 mg tablet 5 mg PO DAILY Rx Instructions: Hold for SBP <120. aspirin 81 mg tablet,delayed release (DR/EC) 81 mg PO DAILY lorazepam 0.5 mg tablet 0.5 mg PO Q8H PRN (Reason: anxiety) Rx Instructions: Take as needed for Anxiety, Agitation, or Insomnia. metoprolol tartrate 50 mg tablet 100 mg PO BID Rx Instructions: Hold for SPB <120 or HR <64 folic acid 1 mg tablet 1 mg PO DAILY albuterol sulfate 90 mcg/actuation HFA aerosol inhaler 2 puff INHALATION Q6H PRN (Reason: Shortness Of Breath) budesonide-formoterol [Symbicort] 160-4.5 mcg/actuation HFA aerosol inhaler 2 puff INHALATION BID Eliquis 2.5 mg tablet 2.5 mg PO BID Date of admission: 10/02/22 12:08 Primary Care Provider: Julio César,Maryuri Bell Admitting Provider: Asim Bridges Attending physician on admission: Zeferino Swan Condition: Serious
[2022-10-06 12:57] LABS: Hematocrit 36.2 % (37.0-47.0); Hemoglobin 11.5 g/dL (12.0-15.0); Mean Corpuscular HGB Conc 31.8 g/dl (32-36); Mean Corpuscular Hemoglobin 32.5 pg (26-34); Mean Corpuscular Volume 102.3 fl (80-100); Mean Platelet Volume 9.6 fl (7.4-10.4); Platelet Count Result 278 k/mm3 (150-375); Red Blood Count 3.54 M/mm3 (4.2-5.4); Red Cell Distribution Width 13.6 % (11.5-14.5); White Blood Count 9.4 K/mm3 (4.5-10.0)
[2022-10-06 14:29] LABS: Mycoplasma IgM Antibody Titer 226 U/mL (<770)
--- NOTE | 2022-10-06 16:09 | P.PNIM_ITS ---
Progress Note: A&P Assessment and Plan (1) Acute respiratory failure: Code(s): J96.00 - Acute respiratory failure, unspecified whether with hypoxia or hypercapnia Status: Acute Assessment and Plan: * Presented with a saturation in the 80s * likely secondary to pneumonia and mild bilateral pleural effusion. * Continue oxygen per protocol to keep saturations above 90% * Chest xray showed mid to lower lung infiltrates PNA vs Pulm Edema * Furosemide 40mg PO daily * Currently on 2LNC and saturation at 99% Patient's 2 sons and daughter in-law were present at the hospital today were concerned for congestive heart failure. I discussed with the family that patient echo revealed an ejection fraction of 60-65%. Diastolic function is undetermined. BNP was approximately 1500, for the patient's age group this is normal. Patient's family concerned about frequent ER and hospital visits that have been occurring about every 4 weeks. Patient is very unhappy about these visits and is in distress in these moments. Patient's family would be comfortable with hospice evaluation to prevent further ER trips due to hypoxia. Hospice evaluation was made and arrangements are being conducted in order to bring the patient home tomorrow. Patient will be able to be discharged home pending oxygen delivery to her SNF. (2) Community acquired pneumonia: Code(s): J18.9 - Pneumonia, unspecified organism Status: Acute Assessment and Plan: * Xray showed mid to lower left lung zones * Continue azithromycin and Rocephin. * blood cultures no growth to date * Neb treatments PRN * Afrin spray * Shortness of breath improved (3) Chronic obstructive pulmonary disease: Code(s): J44.9 - Chronic obstructive pulmonary disease, unspecified Status: Acute Assessment and Plan: * stable. * No wheezing. * Continue inhalers * Not in acute exacerbation (4) Paroxysmal atrial fibrillation: Code(s): I48.0 - Paroxysmal atrial fibrillation Status: Acute Assessment and Plan: * HR stable at this time * on Eliquis, amiodarone (5) Pulmonary edema: Qualifiers: Chronicity: acute Qualified Code(s): J81.0 - Acute pulmonary edema Code(s): J81.1 - Chronic pulmonary edema Status: Acute Assessment and Plan: * mild bilateral pleural effusion. * Not in significant distress. * Lasix p.o.. * Echo EF 60-65% with diastolic diastolic function indeterminate * Daily weight * Trend urine output (6) Hypertension: Code(s): I10 - Essential (primary) hypertension Status: Acute Assessment and Plan: * continue Norvasc, clonidine, Lasix * BP 135/57 * Trend BP * Adjust therapy as indicated (7) Electrolyte imbalance: Code(s): E87.8 - Other disorders of electrolyte and fluid balance, not elsewhere classified Status: Acute Assessment and Plan: * Mg is 1.6, K 2.7 * Trend labs * replace with 4gm mag and 40 PO and 40 IV of potassium * replace as indicated Plan DVT prophylaxis with SCDs GI prophylaxis not indicated Code status full code Subjective Date/time seen: 10/06/22 16:09 Interval history: 10/06/2022 @0853 patient was sitting in the chair and resting comfortably. Patient attempted to be weaned of
--- NOTE | 2022-10-06 16:09 | PM.IMPN ---
Progress Note: A&P Assessment and Plan (1) Acute respiratory failure: Code(s): J96.00 - Acute respiratory failure, unspecified whether with hypoxia or hypercapnia Status: Acute Assessment and Plan: Presented with a saturation in the 80s likely secondary to pneumonia and mild bilateral pleural effusion. Continue oxygen per protocol to keep saturations above 90% Chest xray showed mid to lower lung infiltrates PNA vs Pulm Edema Furosemide 40mg PO daily Currently on 2LNC and saturation at 99% Patient's 2 sons and daughter in-law were present at the hospital today were concerned for congestive heart failure. I discussed with the family that patient echo revealed an ejection fraction of 60-65%. Diastolic function is undetermined. BNP was approximately 1500, for the patient's age group this is normal. Patient's family concerned about frequent ER and hospital visits that have been occurring about every 4 weeks. Patient is very unhappy about these visits and is in distress in these moments. Patient's family would be comfortable with hospice evaluation to prevent further ER trips due to hypoxia. Hospice evaluation was made and arrangements are being conducted in order to bring the patient home tomorrow. Patient will be able to be discharged home pending oxygen delivery to her SNF. (2) Community acquired pneumonia: Code(s): J18.9 - Pneumonia, unspecified organism Status: Acute Assessment and Plan: Xray showed mid to lower left lung zones Continue azithromycin and Rocephin. blood cultures no growth to date Neb treatments PRN Afrin spray Shortness of breath improved (3) Chronic obstructive pulmonary disease: Code(s): J44.9 - Chronic obstructive pulmonary disease, unspecified Status: Acute Assessment and Plan: stable. No wheezing. Continue inhalers Not in acute exacerbation (4) Paroxysmal atrial fibrillation: Code(s): I48.0 - Paroxysmal atrial fibrillation Status: Acute Assessment and Plan: HR stable at this time on Eliquis, amiodarone (5) Pulmonary edema: Qualifiers: Chronicity: acute Qualified Code(s): J81.0 - Acute pulmonary edema Code(s): J81.1 - Chronic pulmonary edema Status: Acute Assessment and Plan: mild bilateral pleural effusion. Not in significant distress. Lasix p.o.. Echo EF 60-65% with diastolic diastolic function indeterminate Daily weight Trend urine output (6) Hypertension: Code(s): I10 - Essential (primary) hypertension Status: Acute Assessment and Plan: continue Norvasc, clonidine, Lasix BP 135/57 Trend BP Adjust therapy as indicated (7) Electrolyte imbalance: Code(s): E87.8 - Other disorders of electrolyte and fluid balance, not elsewhere classified Status: Acute Assessment and Plan: Mg is 1.6, K 2.7 Trend labs replace with 4gm mag and 40 PO and 40 IV of potassium replace as indicated Plan DVT prophylaxis with SCDs GI prophylaxis not indicated Code status full code Subjective Date/time seen: 10/06/22 16:09 Interval history: 10/06/2022 @0853 patient was sitting in the chair and resting comfortably. Patient attempted to be weaned off room air again without success. Patient currently on 2 L nasal cannula and stabbing and the 90s. Patient denies any chest pain, shortness a breath, nausea, vomiting, diarrhea, constipation, fever and chills. Patient's 2 sons and [id number] were present later in the day and hospice was discussed. Review of Systems Review of Systems: All systems reviewed & are unremarkable except as noted in HPI and below Exam Narrative: GENERAL: Comfortable, no acute distress HENMT: moist mucous membranes EYES: EOM intact b/l NECK: no lymphadenopathy RESPIRATORY: clear to aus
[2022-10-06] MEDS: METOPROLOL TARTRATE 50 MG TAB 100 MG PO (20:33)
[2022-10-06] MEDS: FLUTICASONE/SALMETEROL 115-21 MCG INHALER 1 PUFF 2 PUFF INHALATION (20:52)
[2022-10-07 04:37] VITALS: BP 133/48; PULSE 72; RESP 18; TEMP 36.3; O2SAT 92
[2022-10-07 07:11] LABS: Basophils Absolute Auto 0.1 K/mm3 (0.0-0.1); Basophils Percent Auto 0.8 % (0.2-1.2); Eosinophils Absolute Auto 0.4 K/mm3 (0-0.3); Eosinophils Percent Auto 3.8 % (0-4.4); Hematocrit 36.1 % (37.0-47.0); Hemoglobin 11.4 g/dL (12.0-15.0); Immature Granulocyte Absolute 0.09 K/mm3 (0.00-0.031); Immature Granulocyte Percent A 0.9 % (0-0.5); Lymphocytes Absolute Auto 1.61 K/mm3 (0.9-3.2); Lymphocytes Percent Auto 15.5 % (18.3-44.2); Mean Corpuscular HGB Conc 31.6 g/dl (32-36); Mean Corpuscular Hemoglobin 32.2 pg (26-34); Mean Platelet Volume 9.5 fl (7.4-10.4); Monocytes Absolute Auto 1.4 K/mm3 (0.1-0.6); Monocytes Percent Auto 13.1 % (2.6-8.5); Neutrophils Absolute Auto 6.9 K/mm3 (1.3-6.7); Neutrophils Percent Auto 65.9 % (45.5-73.1); Platelet Count Result 284 k/mm3 (150-375); Red Blood Count 3.54 M/mm3 (4.2-5.4); Red Cell Distribution Width 13.4 % (11.5-14.5); White Blood Count 10.4 K/mm3 (4.5-10.0)
[2022-10-07 07:23] LABS: Alanine Aminotransferase 35 U/L (6-35); Albumin Level 3.4 g/dL (3.5-5.1); Alkaline Phosphatase 117 U/L (38-126); Anion Gap 6 mmol/L (8-16); Aspartate Amino Transferase 26 U/L (14-36); Bilirubin,Total 0.6 mg/dL (0.2-1.3); Blood Urea Nitrogen 24 mg/dL (7-17); Calcium 8.5 mg/dL (8.4-10.2); Carbon Dioxide 37 mmol/L (22-30); Chloride 95 mmol/L (98-107); Estimated CRCL calculation 35 ml/min; Estimated Glomerular Filt Rate > 60; Glucose 92 mg/dL (65-110); Potassium 3.8 mmol/L (3.4-5.0); Sodium 138 mmol/L (137-145)
[2022-10-07 08:00] VITALS: O2SAT 95
[2022-10-07] MEDS: ASPIRIN 81 MG ENTERIC TABLET PO (09:04)
[2022-10-07] MEDS: amLODIPine BESYLATE 5 MG TABLET PO (09:04)
[2022-10-07] MEDS: APIXABAN 2.5 MG TABLET PO (09:04)
[2022-10-07 09:05] VITALS: PULSE 62
[2022-10-07] MEDS: FUROSEMIDE 40 MG TABLET PO (09:05)
[2022-10-07] MEDS: METOPROLOL TARTRATE 50 MG TAB 100 MG PO (09:05)
[2022-10-07] MEDS: FOLIC ACID 1 MG TABLET PO (09:05)
[2022-10-07] MEDS: AMIODARONE HCL 200 MG TABLET PO (09:05)
[2022-10-07 10:37] VITALS: O2SAT 93
[2022-10-07] MEDS: FLUTICASONE/SALMETEROL 115-21 MCG INHALER 1 PUFF 2 PUFF INHALATION (10:37)
--- NOTE | 2022-10-07 11:48 | PM.DS ---
DS: Admitting Diagnosis Discharge Date 10/07/2022 Admitting Diagnosis Acute respiratory failure DS: Discharge Diagnosis Discharge Diagnosis (1) Acute respiratory failure: Code(s): J96.00 - Acute respiratory failure, unspecified whether with hypoxia or hypercapnia Status: Acute (2) Community acquired pneumonia: Code(s): J18.9 - Pneumonia, unspecified organism Status: Acute (3) Chronic obstructive pulmonary disease: Code(s): J44.9 - Chronic obstructive pulmonary disease, unspecified Status: Acute (4) Paroxysmal atrial fibrillation: Code(s): I48.0 - Paroxysmal atrial fibrillation Status: Acute (5) Pulmonary edema: Qualifiers: Chronicity: acute Qualified Code(s): J81.0 - Acute pulmonary edema Code(s): J81.1 - Chronic pulmonary edema Status: Acute (6) Hypertension: Code(s): I10 - Essential (primary) hypertension Status: Acute (7) Electrolyte imbalance: Code(s): E87.8 - Other disorders of electrolyte and fluid balance, not elsewhere classified Status: Acute DS: Summary Hospital Course Reason for hospitalization: Acute respiratory distress Hospital Course: 82-year-old female with a history of COPD, hypertension, AFib, and chronic anticoagulation use. Patient has been in an out of the hospital/ER due to hypoxia in the past 6-12 months. Presented to the ER on 10/02/2022 with shortness of breath and hypoxia. Patient did have some lower extremity swelling but no chest pain. Patient was satting in the 80s on room air she was put on 4 L of O2 and improved to the 90s. Patient was combative in the ER and history was limited. Chest x-ray revealed bilateral primary mid and lower lung infiltrates, cardiomegaly and right pleural effusion with differential diagnosis of pneumonia versus pulmonary edema. White blood cell count of 14.1, BNP of 1530, undetectable troponin, and AST/ALT elevation. Patient was COVID and flu negative. She was started on nebulizer treatments q.4, 40 mg of furosemide, and azithromycin and ceftriaxone. Patient had undergone echo that revealed ejection fraction of 60-65%, indeterminate diastolic function, and mild mitral valve regurg. During patient's stay she progressed back to baseline and labs have improved. There have been 2 attempts to wean patient off of oxygen with no success. There was a family discussion about hospice. Family was concerned about frequent hospital trips and the nature of patient's mood when she is taken to the ER. Family says that she becomes very combative and and incorporative when she has to come to the hospital. Hospice consult was arranged and family has agreed to have patient discharged back to [facility] hospice. Status at Discharge Overall status at discharge: patient is progressing back to baseline Time Spent with Patient Time attestation: Total time spent providing and/or coordinating discharge services: Time spent: Greater than 30 minutes Exam Narrative: GENERAL: Comfortable, no acute distress HENMT: moist mucous membranes EYES: EOM intact b/l NECK: no lymphadenopathy RESPIRATORY: clear to auscultation CARDIO: RRR GI: soft, nontender, bowel sounds present SKIN: no rashes EXTREMITIES: no edema, redness or tenderness DS: Data Data Completed and Pending Labs on day of discharge: Labs from last 24 hours 10/07/22 10/07/22 10/06/22 06:52 06:52 12:50 WBC 10.4 H 9.4 RBC 3.54 L 3.54 L Hgb 11.4 L 11.5 L Hct 36.1 L 36.2 L MCV 102.0 H 102.3 H MCH 32.2 32.5 MCHC 31.6 L 31.8 L RDW 13.4 13.6 Plt Count 284 278 MPV 9.5 9.6 Immature Gran % (Auto) 0.9 H Neut % (Auto) 65.9 Lymph % (Auto) 15.5 L [place] % (Auto) 13.1 H Eos % (Auto) 3.8 Baso % (Auto) 0.8 Lymph # (Auto) 1.61 [place] # (Auto) 1.4 H Eos # (Auto) 0.4 H Baso # (Auto) 0.1 Abs Immat Gran (auto) 0.09 H Absolute Neuts (auto) 6.9 H Abs
[2022-10-07 13:58] LABS: EDCOVIDSCREEN Negative (Negative)
--- NOTE | 2022-10-08 09:22 | PC.NURSE ---
Blood cx are negative. Dr. Yuliana huerta.
== END 2022-10-07 13:55 | disposition hospice, home (50) | DRG 193 ==
LOC: ANHED 12:13 → ANHIMU 13:57 → ANH2MED 10-04 08:32 → ANHIMU 10-09 11:18
PROVIDERS: Internal Medicine Critical Care Medicine; Nurse Practitioner; Physician Assistant; Admitting Provider Internal Medicine; Emergency Provider Preventive Medicine Aerospace Medicine; PCP Nurse Practitioner Family; Visit Provider Student in an Organized Health Care Education/Training Program
DX: J18.9 Pneumonia, unspecified organism (principal); J96.01 Acute respiratory failure with hypoxia; J44.0 Chronic obstructive pulmonary disease with (acute) lower respiratory infection; I48.0 Paroxysmal atrial fibrillation; I10 Essential (primary) hypertension; E87.8 Other disorders of electrolyte and fluid balance, not elsewhere classified; F03.90 Unspecified dementia, unspecified severity, without behavioral disturbance, psychotic disturbance, mood disturbance, and anxiety; Z20.822 Contact with and (suspected) exposure to COVID-19; Z79.01 Long term (current) use of anticoagulants; Z87.891 Personal history of nicotine dependence
CPT/HCPCS: 36415; 36600; 71045; 76705; 80053; 80074; 82805; 83605; 83735; 83880; 84145; 84439; 84443; 84484; 85025; 85027; 85380; 86140; 86738; 87040; 87426; 87502; 93005; 93306; 94002; 94640; 96365; 96375; 97161; 97165; 97530; 97535; 99285; A9270; C9803; J0456; J0696; J1630; J1940; J2060; J3475; J3480; J7040; U0003; U0005

== ENCOUNTER 2022-10-10 19:47 | Inpatient (IN) | payer MEDICARE, SELFPAY ==
--- NOTE | ~2022-10-10 | XR_ITS ---
XR chest 2V 10/13/2022 10:43 Indication: Pneumonia. Hip fracture. Procedure: 2 view chest Comparison: 10/10/2022 Findings: There is worsening bilateral upper lobe airspace disease, compatible with pneumonia. Cardio megaly. There is atherosclerosis of the aorta. No significant pleural effusion. No pneumothorax. No a cute osseous abnormality. The lungs are hyperinflated which is consistent with, but not diagnostic of chronic obstructive pulmonary disease. Impression: 1: Progression of bilateral upper lobe airspace disease, compatible with pneumonia. Reviewed, dictated and finalized at location A. CAL POLICY SPECIALIST Impression: 1: Progression of bilateral upper lobe airspace disease, compatible with pneumo miguel.
--- NOTE | ~2022-10-10 | XR_ITS ---
XR hip LT 2V w AP pelvis 10/10/2022 21:12 Indication: Left hip pain after fall Procedure: AP pelvis and 2 views left hip Comparison: No prior studies for comparison. Findings: There is a displaced left femoral neck fracture with overriding of fracture fragments and v arus angulation. Osteopenia. There are degenerative changes of the hips and lower lumbar spine. Pelvi c rings are intact. Impression: 1: Displaced left femoral neck fracture with overriding of fracture fragments and varus angulation. Reviewed, dictated and finalized at location A. THCARE TRANSLATOR Impression: 1: Displaced left femoral neck fracture with overriding of fracture fragments a nd varus angulation.
--- NOTE | ~2022-10-10 | CT_ITS ---
EXAMINATION: CT brain wo con DATE: 10/10/2022 21:01 INDICATION: Status post fall. Headache. TECHNIQUE: Computed tomography (CT) of the head was performed without intravenous contrast. The dose- length product was 131.11 mGy-cm. Automated exposure control and iterative reconstruction technique w ere employed. COMPARISON: None FINDINGS: Generalized atrophy. There are scattered mild periventricular and subcortical white matter changes, most likely related to small vessel ischemic disease (microangiopathy). Paranasal sinuses an d mastoids are pneumatized. No depressed skull fractures. There is a chronic right lacunar infarction . There is intracranial atherosclerosis. IMPRESSION: 1. No acute intracranial abnormality. 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 3: Chronic age-related findings. Reviewed, dictated and finalized at location A. STANT GUEST SERVICES MANAGER
--- NOTE | ~2022-10-10 | XR_ITS ---
XR chest 1V portable 10/10/2022 20:26 Indication: Cough. Procedure: AP portable chest Comparison: 10/05/2022 Findings: There is unchanged patchy bilateral airspace disease. Stable cardiomediastinal silhouette. There is atherosclerosis of the aorta. The lungs are hyperinflated which is consistent with, but not diagnostic of chronic obstructive pulmonary disease. Small right pleural effusion. Impression: 1: Stable patchy bilateral airspace disease, consistent with pneumonia. 2: Small right pleural effusion. Reviewed, dictated and finalized at location A. STYLIST Impression: 1: Stable patchy bilateral airspace disease, consistent with pneumonia. 2: Small right pleural effusion.
--- NOTE | ~2022-10-10 | CT_ITS ---
EXAMINATION: CT cervical spine wo con DATE: 10/10/2022 21:01 INDICATION: Neck pain after fall TECHNIQUE: Computed tomography (CT) of the cervical spine was performed without intravenous contrast. The dose-length product was 131 mGy-cm. Automated exposure control and iterative reconstruction tech nique were employed. COMPARISON: None FINDINGS: There is reversal of normal cervical lordosis centered at C5. There is degenerative anterol isthesis at C3-4 and C4-5. There is demineralization of all bones. There is severe degenerative disc disease at all cervical spine levels. There is moderate-severe multilevel uncinate and facet hypertro phy. There is intracranial atherosclerosis. No significant paraspinal soft tissue abnormality. No acu te fracture or traumatic malalignment. Craniovertebral junction is normal. IMPRESSION: 1. No acute abnormality of the cervical spine. 2: Severe cervical spondylosis. Reviewed, dictated and finalized at location A. LEMAKING LABORER
--- NOTE | ~2022-10-10 | XR_ITS ---
EXAMINATION: XR hip LT min 2V DATE: 10/13/2022 18:12 INDICATION: Left bipolar hemiarthroplasty TECHNIQUE: 2 views left hip FINDINGS: There is a left bipolar hip arthroplasty in expected position. Subcutaneous gas with soft tissue swelling are consistent with recent surgery. IMPRESSION: 1. Recent left bipolar hip arthroplasty. Reviewed, dictated and finalized at location A. ETIZER
[2022-10-10 19:48] VITALS: PULSE 79; RESP 30; TEMP 36.6; O2SAT 93
[2022-10-10 19:58] VITALS: BP 213/74; O2SAT 93
--- NOTE | 2022-10-10 20:11 | ECG_ITS ---
Measurements Intervals [place] Rate: 74 P: 71 CT: 162 QRS: 12 QRSD: 90 T: 64 QT: 394 QTc: 438 Interpretive Statements SINUS RHYTHM BASELINE ARTIFACT POSSIBLE LEFT ATRIAL ENLARGEMENT POSSIBLE RIGHT VENTRICULAR CONDUCTION DELAY BORDERLINE ECG COMPARED TO ECG 10/02/2022 09:41:13 NO SIGNIFICANT CHANGES Electronically Signed On 10-11-2022 14:03:40 VOICE PROFESSOR by Ryan Lazcano M.D.
[2022-10-10] MEDS: IPRATROPIUM BR 0.02% INH SOLN 0.5 MG/2.5 ML VIAL INHALATION (20:25)
[2022-10-10] MEDS: ALBUTEROL SULFATE NEB 2.5 MG/3 ML INH 5 MG INHALATION (20:26)
[2022-10-10 20:27] VITALS: PULSE 78; RESP 16
[2022-10-10] MEDS: methylPREDNISolone SOD SUCC 125 MG VIAL IV PUSH (20:36)
[2022-10-10 21:42] LABS: Basophils Absolute Auto 0.1 K/mm3 (0.0-0.1); Basophils Percent Auto 0.5 % (0.2-1.2); Eosinophils Absolute Auto 0.2 K/mm3 (0-0.3); Eosinophils Percent Auto 0.8 % (0-4.4); Hematocrit 35.6 % (37.0-47.0); Hemoglobin 11.4 g/dL (12.0-15.0); Immature Granulocyte Absolute 0.18 K/mm3 (0.00-0.031); Lymphocytes Absolute Auto 1.35 K/mm3 (0.9-3.2); Lymphocytes Percent Auto 7.3 % (18.3-44.2); Mean Corpuscular Hemoglobin 32.5 pg (26-34); Mean Corpuscular Volume 101.4 fl (80-100); Mean Platelet Volume 9.6 fl (7.4-10.4); Monocytes Absolute Auto 1.3 K/mm3 (0.1-0.6); Neutrophils Absolute Auto 15.4 K/mm3 (1.3-6.7); Neutrophils Percent Auto 83.4 % (45.5-73.1); Platelet Count Result 395 k/mm3 (150-375); Red Blood Count 3.51 M/mm3 (4.2-5.4); Red Cell Distribution Width 13.2 % (11.5-14.5); White Blood Count 18.4 K/mm3 (4.5-10.0)
[2022-10-10 21:52] LABS: INR 1.3; Partial Thromboplastin Time 29.5 SECONDS (22.3-36.8); Prothrombin Time 15.9 Seconds (11.1-14.7)
[2022-10-10 21:54] LABS: Alanine Aminotransferase 47 U/L (6-35); Albumin Level 3.8 g/dL (3.5-5.1); Alkaline Phosphatase 160 U/L (38-126); Anion Gap 10 mmol/L (8-16); Aspartate Amino Transferase 69 U/L (14-36); Bilirubin,Total 0.7 mg/dL (0.2-1.3); Blood Urea Nitrogen 37 mg/dL (7-17); Calcium 8.7 mg/dL (8.4-10.2); Carbon Dioxide 31 mmol/L (22-30); Chloride 98 mmol/L (98-107); Estimated CRCL calculation 31 ml/min; Estimated Glomerular Filt Rate 47; Glucose 129 mg/dL (65-110); Potassium 4.1 mmol/L (3.4-5.0); Sodium 139 mmol/L (137-145)
[2022-10-10 22:06] LABS: NT Pro B Type Natriuretic Pept 1210 pg/mL (5-100); Troponin I < 0.012 ng/mL (0.000-0.034)
[2022-10-10 22:10] LABS: Alveolar/Arterial O2 Gradient 146.5 mmHg; Base Excess ABG 6.1 mEq/l (+/-2.0); Carboxyhemoglobin 0.4 % THb (0-2.0); Fractional Inspired Oxygen 36 %; HCO3 ABG 30.9 mEq/l (22.0-26.0); Methemoglobin ABG 0.2 %THb (0-1.5); Oxygen Content ABG 15.1 %vol (16.0-22.0); Oxygen Saturation ABG 90.9 % (95.0-100.0); Oxyhemoglobin 88.1 % THb (90.0-100.0); PCO2 ABG 45.5 mmHg (35.0-45.0); PO2 ABG 57.4 mmHg (80.0-100.0); PO2 FiO2 Ratio Arterial Blood 1.59 %; Reduced Hemoglobin 11.3 %THb (0-5.0); Total Hemoglobin 12.2 g/dL (12.0-18.0)
[2022-10-10 22:12] LABS: Device NASAL CANNULA; Modified Allen's Test Pass; Site Drawn RIGHT RADIAL
[2022-10-10 22:17] LABS: Influenza A QL RT-PCR Negative (Negative); Influenza B QL RT-PCR Negative (Negative); SARS-CoV-2 RNA PCR Negative
[2022-10-10 22:32] LABS: Lactic Acid Reflex 1.9 mmol/L (0.7-2.0)
--- NOTE | 2022-10-10 22:37 | PC.NURSE ---
Spoke with KHOI Yarbrough from [facility] on status of patient.
[2022-10-10 22:40] VITALS: BP 146/52; PULSE 70; RESP 17; O2SAT 93
--- NOTE | 2022-10-10 23:25 | ED.GENADULT ---
HPI - General Adult General Chief complaint: Shortness of Breath/Dyspnea Stated complaint: FALL, HIP PAIN, SOB Source: RN notes reviewed History of Present Illness HPI narrative: Patient presents emergency department from [facility] via EMS for fall. The patient had an unwitnessed fall and has been complaining of left hip pain since the fall when EMS arrived they also noted the patient be short of breath she states that she is chronically on 3 L nasal cannula. She states that she always feels short of breath she denies any fevers or chills she denies any cough denies any abdominal pain patient did have wheezing EMS to give breathing treatment in route. She denies any chest pain shortness of breath or abdominal pain Related Data Home Medications Medication Instructions Recorded Confirmed acetaminophen 325 mg tablet 650 mg PO Q4H PRN Pain 10/02/22 10/02/22 albuterol sulfate 90 mcg/actuation 2 puff inhalation Q6H PRN 10/02/22 10/02/22 aerosol inhaler Shortness Of Breath amiodarone 200 mg tablet 200 mg PO DAILY 10/02/22 10/02/22 amlodipine 5 mg tablet 5 mg PO DAILY 10/02/22 10/02/22 apixaban 2.5 mg tablet (Eliquis) 2.5 mg PO BID 10/02/22 10/02/22 aspirin 81 mg tablet,delayed 81 mg PO DAILY 10/02/22 10/02/22 release budesonide-formoterol HFA 160 2 puff inhalation BID 10/02/22 10/02/22 mcg-4.5 mcg/actuation aerosol inhaler (Symbicort) clonidine HCl 0.1 mg tablet 0.1 mg PO TID PRN Hypertension 10/02/22 10/02/22 lorazepam 0.5 mg tablet 0.5 mg PO Q8H PRN anxiety 10/02/22 10/02/22 metoprolol tartrate 50 mg tablet 100 mg PO BID 10/02/22 10/02/22 Allergies Allergy/AdvReac Type Severity Reaction Status Date / Time No Known Allergies Allergy Verified 10/10/22 20:36 Review of Systems Review of Systems: Gen.: Denies fevers or chills Eyes: Denies eye pain or visual change ENT: Denies congestion Respiratory: Reports shortness of breath denies cough CV: Denies chest pain or palpitations GI: Denies abdominal pain nausea, emesis or diarrhea Musculoskeletal: See HPI Neuro: Denies numbness, tingling, weakness or focal weakness Skin: Denies rash Except as documented, all other systems reviewed and negative [facility] Past Medical History Medical History Chronic anticoagulation Chronic obstructive pulmonary disease Dementia Hypertension Paroxysmal atrial fibrillation Surgical History Surgical History (Updated 10/02/22 @ 21:12 by Rina Gramajo PA-C) Surgical history unknown Family History Family History (Updated 10/02/22 @ 21:12 by Rina Gramajo PA-C) Other Family history unknown Social History Social History Social History: Surrogate medical decision maker: Dev Akhtar, son. Code status: Do not resuscitate. Years smoked: 25 Smoking status: Former smoker Alcohol intake: former Substance use: never Substance use type: does not use Additional living arrangements comments: Assisted living at [place]. Spiritual care concerns: No Exam Narrative: APPEARANCE: No acute distress, nontoxic, resting in bed EYES: EOMI, PERRL HEENT: Normocephalic, atraumatic, OMM Neck: Supple no midline tenderness palpation RESPIRATORY: Mild respiratory distress, wheezing in the bilateral upper lung cao no rhonchi or rales CARDIOVASCULAR: Regular rate and rhythm without murmurs rubs or gallops. ABDOMINAL: Soft, nontender, nondistended, no rebound or guarding MUSCULOSKELETAl: Moves all extremities. No clubbing, cyanosis or edema. Tender palpation over the left anterior lateral hip pain with movement of the left hip no tenderness left knee or ankle dorsalis pedis pulse 2+ neurovascular intact no tenderness of the bilateral upper extremities and the right lower extremity NEURO: Awake and alert x 2. Following commands, speech normal, no focal deficits SKIN:: Warm, dry. No rashes lesions or abrasions PSY
[2022-10-11] VITALS (18 sets, daily range): BP systolic 134–138; BP diastolic 61–68; PULSE 60–82; RESP 16–22; TEMP 36.1–37.3; O2SAT 92–98; BMI 19.8
--- NOTE | 2022-10-11 00:31 | PM.IMHP ---
H&P: HPI History of Present Illness Date/Time: 10/11/22 00:31 Chief Complaint: 82 years old female with past medical history of AFib on Eliquis COPD dementia paroxysmal AFib was discharged on 10/07 22 to hospice at facility patient was found to have CHF exacerbation and pneumonia family decided to proceed with hospice care patient had a fall at facility she was complaining of left hip pain after mechanical fall patient denies head trauma patient also was complaining of shortness of breath and was hypoxic at the ER patient is poor historian due to dementia and acute condition history was taken from the ER record and ER physician and the patient family finally decided to proceed with DNR and okay with surgery for left hip fracture patient at the ER was found to have leukocytosis chest x-ray was positive for pneumonia also has hypoxia and lower extremity swelling patient was found to have acute COPD exacerbation and acute CHF exacerbation and pneumonia associated with mechanical fall and left hip fracture Review of Systems Review of Systems: History is limited as above PMFSH Past Medical History Medical History Chronic anticoagulation Chronic obstructive pulmonary disease Dementia Hypertension Paroxysmal atrial fibrillation Surgical History Surgical History Surgical history unknown Family History Family History Other Family history unknown Social History Social History Social History: Surrogate medical decision maker: Dev Akhtar, son. Code status: Do not resuscitate. Years smoked: 25 Smoking status: Former smoker Alcohol intake: former Substance use: never Substance use type: does not use Additional living arrangements comments: Assisted living at [place]. Spiritual care concerns: No Meds Home Medications and Allergies Home Medications Medication Instructions Recorded Confirmed Type acetaminophen 325 mg tablet 650 mg PO Q4H PRN Pain 10/02/22 10/02/22 History albuterol sulfate 90 mcg/actuation 2 puff inhalation Q6H PRN 10/02/22 10/02/22 History aerosol inhaler Shortness Of Breath amiodarone 200 mg tablet 200 mg PO DAILY 10/02/22 10/02/22 History amlodipine 5 mg tablet 5 mg PO DAILY 10/02/22 10/02/22 History apixaban 2.5 mg tablet (Eliquis) 2.5 mg PO BID 10/02/22 10/02/22 History aspirin 81 mg tablet,delayed 81 mg PO DAILY 10/02/22 10/02/22 History release budesonide-formoterol HFA 160 2 puff inhalation BID 10/02/22 10/02/22 History mcg-4.5 mcg/actuation aerosol inhaler (Symbicort) clonidine HCl 0.1 mg tablet 0.1 mg PO TID PRN Hypertension 10/02/22 10/02/22 History lorazepam 0.5 mg tablet 0.5 mg PO Q8H PRN anxiety 10/02/22 10/02/22 History metoprolol tartrate 50 mg tablet 100 mg PO BID 10/02/22 10/02/22 History Allergies Allergy/AdvReac Type Severity Reaction Status Date / Time No Known Allergies Allergy Verified 10/10/22 20:36 Vital Signs Vital Signs - 24 hr 10/10/22 19:48 10/10/22 19:58 10/10/22 19:58 Temperature 97.8 F Pulse Rate 79 Respiratory Rate 30 H Blood Pressure 213/74 H Pulse Oximetry 93 93 Oxygen Delivery Nasal Cannula Nasal Cannula Oxygen Flow Rate 3 3 10/10/22 20:27 10/10/22 22:40 Temperature Pulse Rate 78 70 Respiratory Rate 16 17 Blood Pressure 146/52 H Pulse Oximetry 93 Oxygen Delivery Oxygen Flow Rate Exam Narrative: GENERAL: Looks sick. HEAD: Normocephalic, atraumatic. NECK: Supple. No adenopathy, no masses. RESPIRATORY: Decreased air entry bilateral bilateral crackles on oxygen short of breath. CARDIOVASCULAR: Regular rate and rhythm without murmurs, rubs, or gallops. Peripheral pulses 2+ and equal bilaterally. ABDOMINAL: Soft, nontender, nondistended, no hepatosplen
[2022-10-11] MEDS: MORPHINE SULFATE (*CRX) 2 MG/ML INJ IV PUSH ×5 (01:01→22:08)
[2022-10-11] MEDS: FUROSEMIDE INJ 40 MG/4 ML VIAL IV PUSH ×3 (01:44→16:39)
[2022-10-11] MEDS: metroNIDAZOLE 500 MG/ISO 100ML 500 MG/100 ML BAG 100 MG IVPB ×2 (01:45→09:26)
[2022-10-11] MEDS: METOPROLOL TARTRATE 50 MG TAB PO (02:01)
[2022-10-11] MEDS: ALBUTEROL SULFATE NEB 2.5 MG/3 ML INH INHALATION ×3 (03:46→14:35)
[2022-10-11] MEDS: IPRATROPIUM BR 0.02% INH SOLN 0.5 MG/2.5 ML VIAL INHALATION ×3 (03:47→14:35)
[2022-10-11] MEDS: methylPREDNISolone SOD SUCC 40 MG VIAL IV PUSH ×3 (04:46→20:54)
[2022-10-11 06:16] LABS: Alanine Aminotransferase 42 U/L (6-35); Albumin Level 3.7 g/dL (3.5-5.1); Alkaline Phosphatase 137 U/L (38-126); Anion Gap 10 mmol/L (8-16); Aspartate Amino Transferase 51 U/L (14-36); Bilirubin,Total 0.5 mg/dL (0.2-1.3); Blood Urea Nitrogen 31 mg/dL (7-17); Calcium 8.4 mg/dL (8.4-10.2); Carbon Dioxide 34 mmol/L (22-30); Chloride 92 mmol/L (98-107); Estimated CRCL calculation 33 ml/min; Estimated Glomerular Filt Rate 60; Glucose 170 mg/dL (65-110); Potassium 3.6 mmol/L (3.4-5.0); Sodium 136 mmol/L (137-145)
[2022-10-11 06:25] LABS: Basophils Absolute Auto 0.1 K/mm3 (0.0-0.1); Basophils Percent Auto 0.4 % (0.2-1.2); Immature Granulocyte Absolute 0.14 K/mm3 (0.00-0.031); Immature Granulocyte Percent A 0.9 % (0-0.5); Lymphocytes Absolute Auto 0.54 K/mm3 (0.9-3.2); Lymphocytes Percent Auto 3.4 % (18.3-44.2); Mean Corpuscular HGB Conc 32.4 g/dl (32-36); Mean Corpuscular Hemoglobin 32.6 pg (26-34); Mean Corpuscular Volume 100.9 fl (80-100); Mean Platelet Volume 9.8 fl (7.4-10.4); Monocytes Absolute Auto 0.3 K/mm3 (0.1-0.6); Monocytes Percent Auto 1.7 % (2.6-8.5); Neutrophils Absolute Auto 15.1 K/mm3 (1.3-6.7); Neutrophils Percent Auto 93.6 % (45.5-73.1); Platelet Count Result 350 k/mm3 (150-375); Red Blood Count 3.37 M/mm3 (4.2-5.4); Red Cell Distribution Width 13.2 % (11.5-14.5); White Blood Count 16.1 K/mm3 (4.5-10.0)
--- NOTE | 2022-10-11 08:34 | PM.IMPN ---
Progress Note: A&P Assessment and Plan (1) Acute respiratory failure: Qualifiers: Respiratory failure complication: hypoxia and hypercapnia Qualified Code(s): J96.01 - Acute respiratory failure with hypoxia; J96.02 - Acute respiratory failure with hypercapnia; J96.02 - Acute respiratory failure with hypercapnia Code(s): J96.00 - Acute respiratory failure, unspecified whether with hypoxia or hypercapnia Status: Acute Assessment and Plan: Acute on chronic, at baseline patient wears 3L O2. Multifactorial most likely related to pneumonia, COPD exacerbation, and CHF exacerbation. Continue IV solu-medrol, wean to BID Continue scheduled albuterol, changed to MDI for presumed better ease of use than nebulizer treatment Continue IV antibiotics broad spectrum antibiotics. she was recently hospitalized and treated with antibiotics. Continue IV Lasix 40 mg BID. Monitor volume status. currently on 4L NC, wean to home O2 (2) Left displaced femoral neck fracture: Code(s): S72.002A - Fracture of unspecified part of neck of left femur, initial encounter for closed fracture Status: Acute Assessment and Plan: Hip imaging shows displaced left femoral neck fracture. Orthopedic surgery consulted and appreciate recommendations. RCRI score 1, 0.9% MACE risk elevated. METs 2-3. Patient's functional status and comorbidities place her at high risk. Optimize medical therapy- continue beta-jazmine and amiodarone, Hold eliquis. continue aspirin as recommended by surgery. Echo from last admission shows normal LV systolic function, EF 60-65%, indeterminate diastolic function, mild mitral valve regurgitations. Continue analgesics for pain. Monitor respiratory status. (3) CHF (congestive heart failure): Code(s): I50.9 - Heart failure, unspecified Status: Chronic Assessment and Plan: Acute and of chronic diastolic CHF exacerbation Continue IV diuretics. Monitor daily weights and strict I/O. (4) Community acquired pneumonia: Code(s): J18.9 - Pneumonia, unspecified organism Status: Acute Assessment and Plan: Afebrile on admission, WBC >19, RR>30, HR 70, BP 146/52, lactic acid 1.9. with suspected pneumonia from chest x-ray. Patient meets sepsis criteria with hypoxia. Speech swallow evaluation without s/s aspiration. Continue broad-spectrum IV antibiotics- IV cefepime 2 grams and IV vancomycin pharmacy to dose for pseudomonas and MRSA coverage given recent hospitalization and antibiotic use. she also resides in assisted living. Stopped metronidazole as aspiration pna appears less likely. Follow culture results (5) Chronic obstructive pulmonary disease: Qualifiers: COPD type: COPD with acute lower respiratory infection Qualified Code(s): J44.0 - Chronic obstructive pulmonary disease with (acute) lower respiratory infection Code(s): J44.9 - Chronic obstructive pulmonary disease, unspecified Status: Chronic Assessment and Plan: Continue management as above. (6) Dementia: Qualifiers: Dementia type: unspecified type Dementia severity: severe Dementia behavioral or psychological symptom: without behavioral, psychotic, or mood disturbance or anxiety Qualified Code(s): F03.C0 - Unspecified dementia, severe, without behavioral disturbance, psychotic disturbance, mood disturbance, and anxiety Code(s): F03.90 - Unspecified dementia, unspecified severity, without behavioral disturbance, psychotic disturbance, mood disturbance, and anxiety Status: Chronic Assessment and Plan: Delirium protocol. Will add seroquel 12.5 mg PO at HS for restlessness (7) Hypertension: Qualifiers: Hypertension type: primary hypertension Qualified Code(s): I10 - Essential (primary) hypertension Code(s): I10 - Essential (primary) hypertension Status: Acute Assessment and Plan: Chronic, stable. Ruddy
[2022-10-11] MEDS: POTASSIUM CHLORIDE INJ 40 MEQ in SODIUM CHLORIDE 0.9% IV 500 ML 130 MEQ IVPB (09:27)
[2022-10-11] MEDS: METOPROLOL TARTRATE 50 MG TAB 100 MG PO ×2 (09:29→20:53)
[2022-10-11] MEDS: FAMOTIDINE 20 MG TABLET PO ×2 (09:29→20:53)
[2022-10-11] MEDS: ASPIRIN 81 MG ENTERIC TABLET PO (09:29)
--- NOTE | 2022-10-11 10:10 | PCSTNOTE ---
Please refer to the Bedside Swallow Evaluation in the EMR. Please note, silent aspiration cannot be ruled out at bedside.
[2022-10-11] MEDS: AMIODARONE HCL 200 MG TABLET PO (10:21)
[2022-10-11 10:26] LABS: Magnesium 1.9 mg/dL (1.6-2.3)
--- NOTE | 2022-10-11 15:25 | PM.CNOR ---
Assessment and Plan Assessment and plan (1) Left displaced femoral neck fracture: Code(s): S72.002A - Fracture of unspecified part of neck of left femur, initial encounter for closed fracture Status: Acute (2) Transitioned from hospice to acute care: Status: Acute (3) CHF (congestive heart failure): Code(s): I50.9 - Heart failure, unspecified Status: Chronic (4) Acute respiratory failure: Qualifiers: Respiratory failure complication: hypoxia and hypercapnia Qualified Code(s): J96.01 - Acute respiratory failure with hypoxia; J96.02 - Acute respiratory failure with hypercapnia; J96.02 - Acute respiratory failure with hypercapnia Code(s): J96.00 - Acute respiratory failure, unspecified whether with hypoxia or hypercapnia Status: Acute (5) Community acquired pneumonia: Code(s): J18.9 - Pneumonia, unspecified organism Status: Acute (6) Chronic anticoagulation: Code(s): Z79.01 - correction (current) use of anticoagulants Status: Acute Plan Displaced femoral neck fracture. Medical comorbidities including COPD, pneumonia, CHF, and afib on eliquis. She has been in and out of an inpatient setting over the last few months. Was taken off hospice for current treatment. High risk for surgery. Discussed care plan with family. Risks, benefits, and alternatives discussed. May benefit from bipolar hemiarthroplasty left hip. Will discuss with other care providers, and watch how her pneumonia evolves. History of Present Illness HPI Consult date: 10/11/22 Consult reason: fracture Chief complaint: Lt hip fracture,Community-acquired Pneumonia,COPD Narrative: Patient complains of acute hip pain. Fell from standing height. Admitted for definitive management. Comfortable at rest. Pain control with Morphine. No numbness, tingling, or other associated symptoms. Lives in assisted living. Pleasantly demented. Uses a walker. Review of Systems Review of Systems: All systems reviewed & are unremarkable except as noted in HPI and below PMFSH Past Medical History Medical History CHF (congestive heart failure) 10/03/22 Echo- normal LV systolic function, EF 60-65%, diastolic dysfunction intermediate Chronic anticoagulation Chronic obstructive pulmonary disease Chronic respiratory failure with hypoxia and hypercapnia Dementia Hypertension Paroxysmal atrial fibrillation Surgical History Surgical History Surgical history unknown Family History Family History Other Family history unknown Social History Social History Social History: Surrogate medical decision maker: Dev Akhtar, son. Code status: Do not resuscitate. Years smoked: 25 Smoking status: Former smoker Additional smoking assessment comments: Smoke for 23 years. Unk information. Alcohol intake: unknown Substance use: former Substance use type: does not use Additional living arrangements comments: Assisted living at [place]. Spiritual care concerns: No Meds Home Medications and Allergies Home Medications Medication Instructions Recorded Confirmed Type acetaminophen 325 mg tablet 650 mg PO Q4H PRN Pain 10/02/22 10/11/22 History albuterol sulfate 90 mcg/actuation 2 puff inhalation Q6H PRN 10/02/22 10/11/22 History aerosol inhaler Shortness Of Breath amiodarone 200 mg tablet 200 mg PO DAILY 10/02/22 10/11/22 History amlodipine 5 mg tablet (Norvasc) 5 mg PO DAILY 10/02/22 10/11/22 History apixaban 2.5 mg tablet (Eliquis) 2.5 mg PO BID 10/02/22 10/11/22 History aspirin 81 mg tablet,delayed 81 mg PO DAILY 10/02/22 10/11/22 History release clonidine HCl 0.1 mg tablet 0.1 mg PO TID PRN Hypertension 10/02/22 10/11/22 History lorazepam 0.5 mg tablet 0.5 m
[2022-10-11] MEDS: LACTATED RINGERS 1,000 ML 30 ML IV CONT (16:39)
[2022-10-11] MEDS: ALBUTEROL SULFATE (*SP) AEROSOL 1 PUFF 2 PUFF INHALATION (20:51)
[2022-10-11] MEDS: guaiFENesin 12 HR 600 MG TABCR PO (20:53)
[2022-10-11] MEDS: QUEtiapine FUMARATE 12.5 MG TABLET PO (20:53)
[2022-10-11] MEDS: HEPARIN SODIUM 5,000 UNITS/ML VIAL 5000 UNITS SUB-Q (20:57)
[2022-10-12] VITALS (10 sets, daily range): BP systolic 102–142; BP diastolic 56–73; PULSE 71–127; RESP 16–20; TEMP 36.4–37.3; O2SAT 92–100
[2022-10-12 06:16] LABS: Basophils Percent Auto 0.2 % (0.2-1.2); Hematocrit 32.1 % (37.0-47.0); Hemoglobin 10.4 g/dL (12.0-15.0); Immature Granulocyte Absolute 0.19 K/mm3 (0.00-0.031); Lymphocytes Absolute Auto 0.78 K/mm3 (0.9-3.2); Lymphocytes Percent Auto 3.9 % (18.3-44.2); Mean Corpuscular HGB Conc 32.4 g/dl (32-36); Mean Corpuscular Hemoglobin 31.9 pg (26-34); Mean Corpuscular Volume 98.5 fl (80-100); Mean Platelet Volume 9.7 fl (7.4-10.4); Monocytes Absolute Auto 1.1 K/mm3 (0.1-0.6); Monocytes Percent Auto 5.6 % (2.6-8.5); Neutrophils Absolute Auto 17.8 K/mm3 (1.3-6.7); Neutrophils Percent Auto 89.3 % (45.5-73.1); Platelet Count Result 344 k/mm3 (150-375); Red Blood Count 3.26 M/mm3 (4.2-5.4); Red Cell Distribution Width 13.5 % (11.5-14.5); White Blood Count 19.9 K/mm3 (4.5-10.0)
[2022-10-12 06:31] LABS: Alanine Aminotransferase 34 U/L (6-35); Albumin Level 3.2 g/dL (3.5-5.1); Alkaline Phosphatase 112 U/L (38-126); Aspartate Amino Transferase 41 U/L (14-36); Bilirubin,Total 0.5 mg/dL (0.2-1.3); Blood Urea Nitrogen 31 mg/dL (7-17); Calcium 8.5 mg/dL (8.4-10.2); Carbon Dioxide > 40 mmol/L (22-30); Chloride 92 mmol/L (98-107); Estimated CRCL calculation 34 ml/min; Estimated Glomerular Filt Rate 60; Glucose 126 mg/dL (65-110); Potassium 3.9 mmol/L (3.4-5.0); Sodium 137 mmol/L (137-145)
[2022-10-12] MEDS: ALBUTEROL SULFATE (*SP) AEROSOL 1 PUFF 2 PUFF INHALATION ×3 (08:39→19:13)
[2022-10-12] MEDS: AMIODARONE HCL 200 MG TABLET PO (10:47)
[2022-10-12] MEDS: LORazepam (*CRX) 0.5 MG TABLET PO ×2 (10:48→19:39)
[2022-10-12] MEDS: ASPIRIN 81 MG ENTERIC TABLET PO (10:48)
[2022-10-12] MEDS: HEPARIN SODIUM 5,000 UNITS/ML VIAL 5000 UNITS SUB-Q ×2 (10:48→20:40)
[2022-10-12] MEDS: FAMOTIDINE 20 MG TABLET PO ×2 (10:48→20:40)
[2022-10-12] MEDS: FUROSEMIDE INJ 40 MG/4 ML VIAL IV PUSH (10:49)
[2022-10-12] MEDS: methylPREDNISolone SOD SUCC 40 MG VIAL IV PUSH ×2 (10:50→20:40)
--- NOTE | 2022-10-12 12:12 | PM.IMPN ---
Progress Note: A&P Assessment and Plan (1) Acute respiratory failure: Qualifiers: Respiratory failure complication: hypoxia and hypercapnia Qualified Code(s): J96.01 - Acute respiratory failure with hypoxia; J96.02 - Acute respiratory failure with hypercapnia; J96.02 - Acute respiratory failure with hypercapnia Code(s): J96.00 - Acute respiratory failure, unspecified whether with hypoxia or hypercapnia Status: Acute Assessment and Plan: Acute on chronic, at baseline patient wears 3L O2. Multifactorial most likely related to pneumonia, COPD exacerbation, and CHF exacerbation. Continue IV solu-medrol, wean to BID Continue scheduled albuterol, changed to MDI for presumed better ease of use than nebulizer treatment Continue IV antibiotics broad spectrum antibiotics. she was recently hospitalized and treated with antibiotics. Continue IV Lasix 40 mg BID. Monitor volume status. currently on 4L NC, wean to home O2 (2) Left displaced femoral neck fracture: Code(s): S72.002A - Fracture of unspecified part of neck of left femur, initial encounter for closed fracture Status: Acute Assessment and Plan: Hip imaging shows displaced left femoral neck fracture. Orthopedic surgery consulted and appreciate recommendations. RCRI score 1, 0.9% MACE risk elevated. METs 2-3. Patient's functional status and comorbidities place her at high risk. Optimize medical therapy- continue beta-jazmine and amiodarone, Hold eliquis. continue aspirin as recommended by surgery. Echo from last admission shows normal LV systolic function, EF 60-65%, indeterminate diastolic function, mild mitral valve regurgitations. Continue analgesics for pain. Monitor respiratory status. (3) CHF (congestive heart failure): Code(s): I50.9 - Heart failure, unspecified Status: Chronic Assessment and Plan: Acute and of chronic diastolic CHF exacerbation Appears euvolemic. Hold IV diuretics for now. Monitor daily weights and strict I/O. Patient is negative approximately 1800 mL, daily weights fluctuant and appear inaccurate (4) Community acquired pneumonia: Code(s): J18.9 - Pneumonia, unspecified organism Status: Acute Assessment and Plan: Afebrile on admission, WBC >19, RR>30, HR 70, BP 146/52, lactic acid 1.9. with suspected pneumonia from chest x-ray. Patient meets sepsis criteria with hypoxia. Speech swallow evaluation without s/s aspiration. Continue broad-spectrum IV antibiotics- IV cefepime 2 grams and IV vancomycin pharmacy to dose for pseudomonas and MRSA coverage given recent hospitalization and antibiotic use. she also resides in assisted living. Stopped metronidazole as aspiration pna appears less likely. Follow culture results. preliminary blood cultures negative. MRSA culture pending. Transition to oral antibiotics pending cultures and plans for surgery. (5) Chronic obstructive pulmonary disease: Qualifiers: COPD type: COPD with acute lower respiratory infection Qualified Code(s): J44.0 - Chronic obstructive pulmonary disease with (acute) lower respiratory infection Code(s): J44.9 - Chronic obstructive pulmonary disease, unspecified Status: Chronic Assessment and Plan: Continue management as above. Stable (6) Dementia: Qualifiers: Dementia behavioral or psychological symptom: without behavioral, psychotic, or mood disturbance or anxiety Dementia severity: severe Dementia type: unspecified type Qualified Code(s): F03.C0 - Unspecified dementia, severe, without behavioral disturbance, psychotic disturbance, mood disturbance, and anxiety Code(s): F03.90 - Unspecified dementia, unspecified severity, without behavioral disturbance, psychotic disturbance, mood disturbance, and anxiety Status: Chronic Assessment and Plan: Delirium protocol. Continue seroquel 12.5 mg PO at HS for restlessness
[2022-10-12] MEDS: MORPHINE SULFATE (*CRX) 2 MG/ML INJ IV PUSH ×2 (19:36→23:08)
[2022-10-12] MEDS: guaiFENesin 12 HR 600 MG TABCR PO (20:39)
[2022-10-12] MEDS: QUEtiapine FUMARATE 12.5 MG TABLET PO (20:40)
[2022-10-12] MEDS: METOPROLOL TARTRATE 50 MG TAB 100 MG PO (20:40)
[2022-10-12] MEDS: HALOPERIDOL LACTATE 5 MG/ML VIAL IM (22:48)
[2022-10-13] VITALS (21 sets, daily range): BP systolic 125–152; BP diastolic 48–97; PULSE 65–81; RESP 16–20; TEMP 35.6–37.6; O2SAT 92–100; BMI 21.7
[2022-10-13] MEDS: ALBUTEROL SULFATE (*SP) AEROSOL 1 PUFF 2 PUFF INHALATION ×4 (01:54→20:39)
[2022-10-13 06:46] LABS: Basophils Percent Auto 0.1 % (0.2-1.2); Hematocrit 30.8 % (37.0-47.0); Hemoglobin 9.7 g/dL (12.0-15.0); Immature Granulocyte Absolute 0.11 K/mm3 (0.00-0.031); Immature Granulocyte Percent A 0.7 % (0-0.5); Lymphocytes Absolute Auto 0.66 K/mm3 (0.9-3.2); Lymphocytes Percent Auto 4.3 % (18.3-44.2); Mean Corpuscular HGB Conc 31.5 g/dl (32-36); Mean Corpuscular Volume 101.7 fl (80-100); Mean Platelet Volume 9.9 fl (7.4-10.4); Monocytes Absolute Auto 0.8 K/mm3 (0.1-0.6); Monocytes Percent Auto 5.1 % (2.6-8.5); Neutrophils Absolute Auto 13.8 K/mm3 (1.3-6.7); Neutrophils Percent Auto 89.8 % (45.5-73.1); Platelet Count Result 347 k/mm3 (150-375); Red Blood Count 3.03 M/mm3 (4.2-5.4); Red Cell Distribution Width 13.8 % (11.5-14.5); White Blood Count 15.4 K/mm3 (4.5-10.0)
[2022-10-13 06:59] LABS: Alanine Aminotransferase 33 U/L (6-35); Alkaline Phosphatase 102 U/L (38-126); Aspartate Amino Transferase 52 U/L (14-36); Bilirubin,Total 0.4 mg/dL (0.2-1.3); Blood Urea Nitrogen 44 mg/dL (7-17); Calcium 8.1 mg/dL (8.4-10.2); Carbon Dioxide > 40 mmol/L (22-30); Chloride 89 mmol/L (98-107); Estimated CRCL calculation 31 ml/min; Estimated Glomerular Filt Rate 53; Glucose 131 mg/dL (65-110); Potassium 3.2 mmol/L (3.4-5.0); Sodium 135 mmol/L (137-145)
--- NOTE | 2022-10-13 09:31 | P.PNIM_ITS ---
Progress Note: A&P Assessment and Plan (1) Acute respiratory failure: Qualifiers: Respiratory failure complication: hypoxia and hypercapnia Qualified Code(s): J96.01 - Acute respiratory failure with hypoxia; J96.02 - Acute respiratory failure with hypercapnia; J96.02 - Acute respiratory failure with hypercapnia Code(s): J96.00 - Acute respiratory failure, unspecified whether with hypoxia or hypercapnia Status: Acute Assessment and Plan: Acute on chronic, at baseline patient wears 3L O2. Multifactorial most likely related to pneumonia, COPD exacerbation, and CHF exacerbation. * Continue IV solu-medrol, wean to BID. Change to oral prednisone when able to take PO. * Continue scheduled albuterol, changed to MDI for presumed better ease of use than nebulizer treatment * Continue IV antibiotics * Treated IV Lasix 40 mg BID. Monitor volume status. 10/12/22 hold diuretics. TCO2 >40 suggesting diuretic related metabolic alkalosis. Check VBG for pCO2 level. Neuro is at baseline. * currently on 3L NC, which is baseline. * Repeat CXR with increase in opacities, however, patient appears clinically improving and at baseline O2 needs. (2) Left displaced femoral neck fracture: Code(s): S72.002A - Fracture of unspecified part of neck of left femur, initial encounter for closed fracture Status: Acute Assessment and Plan: Hip imaging shows displaced left femoral neck fracture. * Orthopedic surgery consulted and appreciate recommendations. * RCRI score 1, 0.9% MACE risk elevated. METs 2-3. Patient's functional status and comorbidities place her at high risk. * Optimize medical therapy- continue beta-jazmine and amiodarone, Hold eliquis. continue aspirin as recommended by surgery. * Echo from last admission shows normal LV systolic function, EF 60-65%, indeterminate diastolic function, mild mitral valve regurgitations. * Continue analgesics for pain. * Monitor respiratory status. * Plan for OR repair today. (3) CHF (congestive heart failure): Code(s): I50.9 - Heart failure, unspecified Status: Chronic Assessment and Plan: Acute and of chronic diastolic CHF exacerbation * Appears euvolemic. Hold IV diuretics for now. * Monitor daily weights and strict I/O - daily weights appear inaccurate. Monitor I/O. * Patient is negative approximately 2L from admission. (4) Community acquired pneumonia: Qualifiers: Lung location: upper lobe of lung Code(s): J18.9 - Pneumonia, unspecified organism Status: Acute Assessment and Plan: Afebrile on admission, WBC >19, RR>30, HR 70, BP 146/52, lactic acid 1.9. with suspected pneumonia from chest x-ray. Patient meets sepsis criteria with hypoxia. * Speech swallow evaluation without s/s aspiration. * Continue broad-spectrum IV antibiotics- IV cefepime 2 grams and IV vancomycin pharmacy to dose for pseudomonas and MRSA coverage given recent hospitalization and antibiotic use. she also resides in assisted living. * Stopped metronidazole as aspiration pna appears less likely. * Follow culture results. preliminary blood cultures negative. MRSA culture pending. * Transition to oral antibiotics pending cultures and plans for surgery. * 10/13/22 MRSA swab negative. Stop IV Vancomycin. Continue Cefepime IV and consider transition to oral Levaquin postop when able to take PO. (5) Chronic obstructive pulmonary disease: Qualifiers: COPD type: COPD with acute lower respiratory infection Qualified Code(s): J44.0 - Chronic obstructive pulmonary disease with (acute) lower respir
--- NOTE | 2022-10-13 09:31 | PM.IMPN ---
Progress Note: A&P Assessment and Plan (1) Acute respiratory failure: Qualifiers: Respiratory failure complication: hypoxia and hypercapnia Qualified Code(s): J96.01 - Acute respiratory failure with hypoxia; J96.02 - Acute respiratory failure with hypercapnia; J96.02 - Acute respiratory failure with hypercapnia Code(s): J96.00 - Acute respiratory failure, unspecified whether with hypoxia or hypercapnia Status: Acute Assessment and Plan: Acute on chronic, at baseline patient wears 3L O2. Multifactorial most likely related to pneumonia, COPD exacerbation, and CHF exacerbation. Continue IV solu-medrol, wean to BID. Change to oral prednisone when able to take PO. Continue scheduled albuterol, changed to MDI for presumed better ease of use than nebulizer treatment Continue IV antibiotics Treated IV Lasix 40 mg BID. Monitor volume status. 10/12/22 hold diuretics. TCO2 >40 suggesting diuretic related metabolic alkalosis. Check VBG for pCO2 level. Neuro is at baseline. currently on 3L NC, which is baseline. Repeat CXR with increase in opacities, however, patient appears clinically improving and at baseline O2 needs. (2) Left displaced femoral neck fracture: Code(s): S72.002A - Fracture of unspecified part of neck of left femur, initial encounter for closed fracture Status: Acute Assessment and Plan: Hip imaging shows displaced left femoral neck fracture. Orthopedic surgery consulted and appreciate recommendations. RCRI score 1, 0.9% MACE risk elevated. METs 2-3. Patient's functional status and comorbidities place her at high risk. Optimize medical therapy- continue beta-jazmine and amiodarone, Hold eliquis. continue aspirin as recommended by surgery. Echo from last admission shows normal LV systolic function, EF 60-65%, indeterminate diastolic function, mild mitral valve regurgitations. Continue analgesics for pain. Monitor respiratory status. Plan for OR repair today. (3) CHF (congestive heart failure): Code(s): I50.9 - Heart failure, unspecified Status: Chronic Assessment and Plan: Acute and of chronic diastolic CHF exacerbation Appears euvolemic. Hold IV diuretics for now. Monitor daily weights and strict I/O - daily weights appear inaccurate. Monitor I/O. Patient is negative approximately 2L from admission. (4) Community acquired pneumonia: Qualifiers: Lung location: upper lobe of lung Code(s): J18.9 - Pneumonia, unspecified organism Status: Acute Assessment and Plan: Afebrile on admission, WBC >19, RR>30, HR 70, BP 146/52, lactic acid 1.9. with suspected pneumonia from chest x-ray. Patient meets sepsis criteria with hypoxia. Speech swallow evaluation without s/s aspiration. Continue broad-spectrum IV antibiotics- IV cefepime 2 grams and IV vancomycin pharmacy to dose for pseudomonas and MRSA coverage given recent hospitalization and antibiotic use. she also resides in assisted living. Stopped metronidazole as aspiration pna appears less likely. Follow culture results. preliminary blood cultures negative. MRSA culture pending. Transition to oral antibiotics pending cultures and plans for surgery. 10/13/22 MRSA swab negative. Stop IV Vancomycin. Continue Cefepime IV and consider transition to oral Levaquin postop when able to take PO. (5) Chronic obstructive pulmonary disease: Qualifiers: COPD type: COPD with acute lower respiratory infection Qualified Code(s): J44.0 - Chronic obstructive pulmonary disease with (acute) lower respiratory infection Code(s): J44.9 - Chronic obstructive pulmonary disease, unspecified Status: Chronic Assessment and Plan: Continue management as above. Stable (6) Dementia: Qualifiers: Dementia behavioral or psychological symptom: without behavioral, psychotic, or mood disturbance or anxiety Dementia severity: severe Dementia t
[2022-10-13] MEDS: METOPROLOL TARTRATE 50 MG TAB 100 MG PO ×2 (10:15→20:27)
[2022-10-13] MEDS: AMIODARONE HCL 200 MG TABLET PO (10:15)
[2022-10-13 12:11] LABS: Magnesium 2.1 mg/dL (1.6-2.3)
--- NOTE | 2022-10-13 12:25 | WPDHPUPDATE1 ---
History and Physical Update Update Date/Time: 10/13/22 12:25 History and Physical has been reviewed, including an updated exam of the patient. There are NO changes in the patient's condition. Risks, benefits, and alternatives have been discussed and questions answered. Patient agrees to proceed with procedure.
[2022-10-13] MEDS: POTASSIUM CHLORIDE INJ 40 MEQ in SODIUM CHLORIDE 0.9% IV 500 ML 130 MEQ IVPB (13:14)
[2022-10-13] MEDS: TRANEXAMIC ACID 1,000MG/ISO100 1,000 MG/100 ML BAG 200 MG IVPB (15:17)
--- NOTE | 2022-10-13 15:30 | WPDANESEPPF ---
Anes - Initial Pre Proc Eval Procedure: Operation Date: 10/13/22 15:30 Proposed Procedures p Left Bipolar - Damian Matthews MD Date/Time: 10/13/22 15:30 Surgeon: Kym Anand MD Pre Op Diagnosis: Lt hip fracture,Community-acquired Pneumonia,COPD Patient Data Age: 82 Gender: F Height: 1.6 m Weight: 55.5 kg Last Vital Signs Temp 37.6 C 10/13/22 14:57 Pulse 67 10/13/22 14:57 Resp 16 10/13/22 14:57 BP 133/53 L 10/13/22 14:57 Pulse Ox 94 10/13/22 14:57 O2 Del Method Nasal Cannula 10/13/22 14:57 O2 Flow Rate 3 10/13/22 14:57 Allergies Allergy/AdvReac Type Severity Reaction Status Date / Time No Known Allergies Allergy Verified 10/10/22 20:36 Home Medications Medication Instructions Recorded Confirmed Type acetaminophen 325 mg tablet 650 mg PO Q4H PRN Pain 10/02/22 10/11/22 History albuterol sulfate 90 mcg/actuation 2 puff inhalation Q6H PRN 10/02/22 10/11/22 History aerosol inhaler Shortness Of Breath amiodarone 200 mg tablet 200 mg PO DAILY 10/02/22 10/11/22 History amlodipine 5 mg tablet (Norvasc) 5 mg PO DAILY 10/02/22 10/11/22 History apixaban 2.5 mg tablet (Eliquis) 2.5 mg PO BID 10/02/22 10/11/22 History aspirin 81 mg tablet,delayed 81 mg PO DAILY 10/02/22 10/11/22 History release clonidine HCl 0.1 mg tablet 0.1 mg PO TID PRN Hypertension 10/02/22 10/11/22 History lorazepam 0.5 mg tablet 0.5 mg PO Q8H PRN anxiety 10/02/22 10/11/22 History metoprolol tartrate 50 mg tablet 100 mg PO BID 10/02/22 10/11/22 History albuterol sulfate 2.5 mg/3 mL 2.5 mg Q4-6H PRN Shortness Of 10/11/22 10/11/22 History (0.083 %) solution for nebulization Breath morphine concentrate 100 mg/5 mL 5 mg PO Q4-6H PRN Pain 10/11/22 10/11/22 History (20 mg/mL) oral solution sennosides 8.6 mg tablet (Senna 8.6 mg PO DAILY 10/11/22 10/11/22 History Lax) Laboratory Tests 10/13/22 10/13/22 10/13/22 06:19 06:22 06:22 WBC 15.4 K/mm3 H K/mm3 (4.5-10.0) RBC 3.03 M/mm3 L M/mm3 (4.2-5.4) Hgb 9.7 g/dL L g/dL (12.0-15.0) Hct 30.8 % L % (37.0-47.0) MCV 101.7 fl H fl (80-100) MCH 32.0 pg pg (26-34) MCHC 31.5 g/dl L g/dl (32-36) RDW 13.8 % % (11.5-14.5) Plt Count 347 k/mm3 k/mm3 (150-375) MPV 9.9 fl fl (7.4-10.4) Immature Gran % (Auto) 0.7 % H % (0-0.5) Neut % (Auto) 89.8 % H % (45.5-73.1) Lymph % (Auto) 4.3 % L % (18.3-44.2) [place] % (Auto) 5.1 % % (2.6-8.5) Eos % (Auto) 0.0 % % (0-4.4) Baso % (Auto) 0.1 % L % (0.2-1.2) Lymph # (Auto) 0.66 K/mm3 L K/mm3 (0.9-3.2) [place] # (Auto) 0.8 K/mm3 H K/mm3 (0.1-0.6) Eos # (Auto) 0.0 K/mm3 K/mm3 (0-0.3) Baso # (Auto) 0.0 K/mm3 K/mm3 (0.0-0.1) Abs Immat Gran (auto) 0.11 K/mm3 H K/mm3 (0.00-0.031) Absolute Neuts (auto) 13.8 K/mm3 H K/mm3 (1.3-6.7) Absolute Nucleated RBC 0.0 K/mm3 K/mm3 (0.0-0.012) Nucleated RBC % 0.0 % % (0.0-0.2) Sodium 135 mmol/L L mmol/L (137-145) Potassium 3.2 mmol/L L mmol/L (3.4-5.0) Chloride 89 mmol/L L mmol/L (98-107) Carbon Dioxide > 40 mmol/L H mmol/L (22-30) Anion Gap mmol/L mmol/L (8-16) BUN 44 mg/dL H D mg/dL (7-17) Creatinine 1.00 mg/dL mg/dL (0.7-1.0) Estim Creat Clear Calc 31 ml/min ml/min Estimated GFR 53 L (59 - ) Glucose 131 mg/dL H mg/dL (65-110) Calcium 8.1 mg/dL L mg/dL (8.4-10.2) Magnesium 2.1 mg/dL mg/dL (1.6-2.3) Total Bilirubin 0.4 mg/dL mg/dL (0.2-1.3) AST 52 U/L H U/L (14-36) ALT 33 U/L U/L (6-35) Alkaline Phosphatase 102 U/L U/L (38-126) Total Protein 6.0 g/dL L g/dL (6.3-8.2) Albumin 3.0 g/dL L g/dL (3.5-5.1)
[2022-10-13] MEDS: LACTATED RINGERS 1,000 ML 30 ML IV CONT (15:55)
[2022-10-13] MEDS: ceFAZolin 2 GM/D5W 50 ML 2 GM/50 ML BAG IVPB (16:06)
--- NOTE | 2022-10-13 17:45 | W.PM.PROC2 ---
Procedure Note - Detailed Date of Procedure 10/13/22 Pre-op Diagnosis Lt hip fracture,Community-acquired Pneumonia,COPD Post-op Diagnosis Same Procedure Performed Bipolar hemiarthroplasty left hip. Surgeon Damian Matthews MD Railroad Operating Engineer Annamaria Torres PA-C Anesthesia General Findings No significant arthritis of the acetabulum noted. Good press fit obtained. Significant comminution of the neck. Description of Procedure A general anesthetic was administered. The patient was carefully placed in the lateral decubitus position on the peg board positioner. An axillary roll was placed. The hip was prepped and draped in the usual sterile fashion. A minimally invasive optimized posterior approach to the hip was performed. An L shaped capsulotomy was created along the upper border of the piriformis. The short external rotators were tagged with number 2 high strength suture for later repair. The labrum was preserved. The femoral neck cut was performed. The femoral head was removed and sized. The acetabular floor was cleared of debris and loose tissue. The femur was sequentially reamed and broached. Trial was assessed for leg length and stability. The real component was impacted into position, trialed again, and the final head and bipolar component were assembled. The hip was reduced after copious irrigation. The short external rotators and capsule were repaired through drill holes in the posterior trochanter. The wound was closed in layers with 1 vicryl, 2,0, and 2-0 running barbed suture. Adhesive tapes were placed on the skin, followed by a sterile gauze dressing. The patient was extubated and brought to the recovery room. Physician assistant financial accountant, Annamaria Torres PA-C, required for surgery; including patient positioning, draping, tissue retraction, maintaining instrument position, hip dislocation/ relocation. Implants Ronks Accolate 2 hip stem size 4, 127 degree angle .-4 mm by 26 mm metal femoral head. 44 mm bipolar component. Estimated Blood Loss -50.0 Urine Output -400.0 Pathology None sent Complications No immediate complications Condition Stable Disposition PACU [facility] Billing Surgery - Charge Forward: Surgery Billing
--- NOTE | 2022-10-13 18:36 | PC.NURSE ---
Returned from OR. Report received from KHOI Wheeler.
[2022-10-13] MEDS: SENNA/DOCUSATE SODIUM TABLET 2 TAB PO (20:19)
[2022-10-13] MEDS: SODIUM CHLORIDE 0.9% IV 1,000 ML 125 ML IV CONT (20:22)
[2022-10-13] MEDS: guaiFENesin 12 HR 600 MG TABCR PO (20:26)
[2022-10-13] MEDS: LORazepam (*CRX) 0.5 MG TABLET PO (20:26)
[2022-10-13] MEDS: FAMOTIDINE 20 MG/2 ML VIAL IV PUSH (20:27)
[2022-10-13] MEDS: QUEtiapine FUMARATE 12.5 MG TABLET PO (23:46)
[2022-10-14] VITALS (14 sets, daily range): BP systolic 139–166; BP diastolic 47–65; PULSE 59–80; RESP 18; TEMP 35.8–36.4; O2SAT 91–100
[2022-10-14] MEDS: HYDROcodone/acetaminophen (*CRX) 5-325 MG TABLET 1 TAB PO ×2 (01:28→14:56)
[2022-10-14] MEDS: ALBUTEROL SULFATE (*SP) AEROSOL 1 PUFF 2 PUFF INHALATION ×3 (02:15→13:54)
[2022-10-14 06:03] LABS: Hematocrit 26.8 % (37.0-47.0); Hemoglobin 8.4 g/dL (12.0-15.0); Immature Granulocyte Absolute 0.11 K/mm3 (0.00-0.031); Immature Granulocyte Percent A 0.9 % (0-0.5); Lymphocytes Absolute Auto 0.47 K/mm3 (0.9-3.2); Mean Corpuscular HGB Conc 31.3 g/dl (32-36); Mean Corpuscular Hemoglobin 31.5 pg (26-34); Mean Corpuscular Volume 100.4 fl (80-100); Mean Platelet Volume 9.8 fl (7.4-10.4); Monocytes Percent Auto 8.8 % (2.6-8.5); Neutrophils Absolute Auto 10.1 K/mm3 (1.3-6.7); Neutrophils Percent Auto 86.3 % (45.5-73.1); Platelet Count Result 325 k/mm3 (150-375); Red Blood Count 2.67 M/mm3 (4.2-5.4); Red Cell Distribution Width 13.6 % (11.5-14.5); White Blood Count 11.7 K/mm3 (4.5-10.0)
[2022-10-14 06:11] LABS: Anion Gap 4 mmol/L (8-16); Blood Urea Nitrogen 44 mg/dL (7-17); Calcium 7.5 mg/dL (8.4-10.2); Carbon Dioxide 37 mmol/L (22-30); Chloride 98 mmol/L (98-107); Estimated CRCL calculation 28 ml/min; Estimated Glomerular Filt Rate 47; Glucose 114 mg/dL (65-110); Potassium 3.6 mmol/L (3.4-5.0); Sodium 139 mmol/L (137-145)
[2022-10-14 07:49] LABS: Anisocytosis 1+ (NORMAL); Hypochromasia 1+ (NORMAL); Ovalocytes 1+ (NORMAL); Platelet Estimate Adequate (Adequate); Schistocytes None Seen (NORMAL)
[2022-10-14] MEDS: guaiFENesin 12 HR 600 MG TABCR PO ×2 (09:26→20:01)
[2022-10-14] MEDS: SENNA/DOCUSATE SODIUM TABLET 2 TAB PO ×2 (09:27→17:07)
[2022-10-14] MEDS: ENOXAPARIN 30 MG/0.3 ML SYRINGE SUB-Q (09:28)
[2022-10-14] MEDS: METOPROLOL TARTRATE 50 MG TAB 100 MG PO ×2 (09:29→20:02)
[2022-10-14] MEDS: AMIODARONE HCL 200 MG TABLET PO (09:30)
[2022-10-14] MEDS: FAMOTIDINE 20 MG/2 ML VIAL IV PUSH ×2 (09:30→20:00)
[2022-10-14] MEDS: polyethylene glycoL 3350 17 GM POWD.PACK PO (09:30)
--- NOTE | 2022-10-14 11:28 | P.PNIM_ITS ---
Progress Note: A&P Assessment and Plan (1) Acute respiratory failure: Qualifiers: Respiratory failure complication: hypoxia and hypercapnia Qualified Code(s): J96.01 - Acute respiratory failure with hypoxia; J96.02 - Acute respiratory failure with hypercapnia; J96.02 - Acute respiratory failure with hypercapnia Code(s): J96.00 - Acute respiratory failure, unspecified whether with hypoxia or hypercapnia Status: Acute Assessment and Plan: Acute on chronic, at baseline patient wears 3L O2. Multifactorial most likely related to pneumonia, COPD exacerbation, and CHF exacerbation. * Continue IV solu-medrol, wean to BID. Change to oral prednisone when able to take PO. * Continue scheduled albuterol, changed to MDI for presumed better ease of use than nebulizer treatment * Continue IV antibiotics * Treated IV Lasix 40 mg BID. Monitor volume status. 10/12/22 hold diuretics. TCO2 >40 suggesting diuretic related metabolic alkalosis. Check VBG for pCO2 level. Neuro is at baseline. * currently on 3L NC, which is baseline. * Repeat CXR with increase in opacities, however, patient appears clinically improving and at baseline O2 needs. * Stable. On home O2 (2) Left displaced femoral neck fracture: Code(s): S72.002A - Fracture of unspecified part of neck of left femur, initial encounter for closed fracture Status: Acute Assessment and Plan: Hip imaging shows displaced left femoral neck fracture. * Orthopedic surgery consulted and appreciate recommendations. * RCRI score 1, 0.9% MACE risk elevated. METs 2-3. Patient's functional status and comorbidities place her at high risk. * Optimize medical therapy- continue beta-jazmine and amiodarone, Held eliquis preop. continued aspirin as recommended preop * Echo from last admission shows normal LV systolic function, EF 60-65%, indeterminate diastolic function, mild mitral valve regurgitations. * Continue analgesics for pain. * Monitor respiratory status. * 10/13/22 s/p Bipolar hemiarthroplasty left hip. EBL 50. DVT prophylaxis changed to Eliquis 2.5 mg BID for pafib as well. Lowered dose due to age>80, Kg <60. Postop management per Ortho. * PT/OT evaluation. (3) CHF (congestive heart failure): Qualifiers: Heart failure type: diastolic Heart failure chronicity: acute on chronic Qualified Code(s): I50.33 - Acute on chronic diastolic (congestive) heart failure Code(s): I50.9 - Heart failure, unspecified Status: Chronic Assessment and Plan: Acute and of chronic diastolic CHF exacerbation * Appears euvolemic. Hold IV diuretics for now. * Monitor daily weights and strict I/O - daily weights appear inaccurate. Monitor I/O. * Stable. Appears euvolemic. Hold lasix for now. (4) Community acquired pneumonia: Qualifiers: Lung location: upper lobe of lung Code(s): J18.9 - Pneumonia, unspecified organism Status: Acute Assessment and Plan: Afebrile on admission, WBC >19, RR>30, HR 70, BP 146/52, lactic acid 1.9. with suspected pneumonia bilateral upper lobes from chest x-ray. Patient meets sepsis criteria with hypoxia. * Speech swallow evaluation without s/s aspiration. * Continue broad-spectrum IV antibiotics- IV cefepime 2 grams and IV vancomycin pharmacy to dose for pseudomonas and MRSA coverage given recent hospitalization and antibiotic use. she also resides in assisted living. * Stopped metronidazole as aspiration pna appears less likely. * Follow culture results. preliminary blood cultures negative. MRSA culture pending. * Transition to oral antibiotics
--- NOTE | 2022-10-14 11:28 | PM.IMPN ---
Progress Note: A&P Assessment and Plan (1) Acute respiratory failure: Qualifiers: Respiratory failure complication: hypoxia and hypercapnia Qualified Code(s): J96.01 - Acute respiratory failure with hypoxia; J96.02 - Acute respiratory failure with hypercapnia; J96.02 - Acute respiratory failure with hypercapnia Code(s): J96.00 - Acute respiratory failure, unspecified whether with hypoxia or hypercapnia Status: Acute Assessment and Plan: Acute on chronic, at baseline patient wears 3L O2. Multifactorial most likely related to pneumonia, COPD exacerbation, and CHF exacerbation. Continue IV solu-medrol, wean to BID. Change to oral prednisone when able to take PO. Continue scheduled albuterol, changed to MDI for presumed better ease of use than nebulizer treatment Continue IV antibiotics Treated IV Lasix 40 mg BID. Monitor volume status. 10/12/22 hold diuretics. TCO2 >40 suggesting diuretic related metabolic alkalosis. Check VBG for pCO2 level. Neuro is at baseline. currently on 3L NC, which is baseline. Repeat CXR with increase in opacities, however, patient appears clinically improving and at baseline O2 needs. Stable. On home O2 (2) Left displaced femoral neck fracture: Code(s): S72.002A - Fracture of unspecified part of neck of left femur, initial encounter for closed fracture Status: Acute Assessment and Plan: Hip imaging shows displaced left femoral neck fracture. Orthopedic surgery consulted and appreciate recommendations. RCRI score 1, 0.9% MACE risk elevated. METs 2-3. Patient's functional status and comorbidities place her at high risk. Optimize medical therapy- continue beta-jazmine and amiodarone, Held eliquis preop. continued aspirin as recommended preop Echo from last admission shows normal LV systolic function, EF 60-65%, indeterminate diastolic function, mild mitral valve regurgitations. Continue analgesics for pain. Monitor respiratory status. 10/13/22 s/p Bipolar hemiarthroplasty left hip. EBL 50. DVT prophylaxis changed to Eliquis 2.5 mg BID for pafib as well. Lowered dose due to age>80, Kg <60. Postop management per Ortho. PT/OT evaluation. (3) CHF (congestive heart failure): Qualifiers: Heart failure type: diastolic Heart failure chronicity: acute on chronic Qualified Code(s): I50.33 - Acute on chronic diastolic (congestive) heart failure Code(s): I50.9 - Heart failure, unspecified Status: Chronic Assessment and Plan: Acute and of chronic diastolic CHF exacerbation Appears euvolemic. Hold IV diuretics for now. Monitor daily weights and strict I/O - daily weights appear inaccurate. Monitor I/O. Stable. Appears euvolemic. Hold lasix for now. (4) Community acquired pneumonia: Qualifiers: Lung location: upper lobe of lung Code(s): J18.9 - Pneumonia, unspecified organism Status: Acute Assessment and Plan: Afebrile on admission, WBC >19, RR>30, HR 70, BP 146/52, lactic acid 1.9. with suspected pneumonia bilateral upper lobes from chest x-ray. Patient meets sepsis criteria with hypoxia. Speech swallow evaluation without s/s aspiration. Continue broad-spectrum IV antibiotics- IV cefepime 2 grams and IV vancomycin pharmacy to dose for pseudomonas and MRSA coverage given recent hospitalization and antibiotic use. she also resides in assisted living. Stopped metronidazole as aspiration pna appears less likely. Follow culture results. preliminary blood cultures negative. MRSA culture pending. Transition to oral antibiotics pending cultures and plans for surgery. 10/13/22 MRSA swab negative. Stop IV Vancomycin. Continue Cefepime IV and consider transition to oral Levaquin postop when able to take PO. 10/14/22 Change to Levaquin 750 mg Q48 hours x 2 doses to complete total 7-day antibiotic course. Levaquin selected due to pseudomonas coverage. Monitor while also taking amiodarone due to ris
[2022-10-14 14:05] LABS: Hematocrit 30.4 % (37.0-47.0); Hemoglobin 9.5 g/dL (12.0-15.0)
--- NOTE | 2022-10-14 14:43 | PM.PNORT ---
Progress Note: A&P Assessment and Plan (1) Left displaced femoral neck fracture: Code(s): S72.002A - Fracture of unspecified part of neck of left femur, initial encounter for closed fracture Status: Acute Plan Postop day 1: Left bipolar hip arthroplasty. Patient tolerated procedure well. No complications. Pain manageable. No numbness or tingling. Patient will need to be discharged to SNF/rehab. Ortho instructions: D/C to SNF/rehab Xray in 4weeks. f/u in office in 6 weeks if able. Wound Care: Hip: Remove Mepilex dressing at 7 days post op. Remove steristrips at 14 days post op. May shower. No soaking. PT: Weight bearing as tolerated with a walker. DVT prophylaxis: continue Lovenox for 30 days total Pain medication: Tylenol. Subjective Subjective Date/Time Seen: 10/14/22 14:43 Interval history: Patient resting comfortably in bed. No acute distress. States she was not having any pain. Wiggles toes. Review of Systems Review of Systems: Pain right hip and leg with movement. Denied pain elsewhere. ROS unobtainable: Yes unobtainable due to mental status Exam Narrative: Thin 82 y/o female. Resting comfortably in bed. Wearing compression socks bilaterally. Dressing dry and intact with no drainage. Moderate swelling. No edema. No ecchymosis. No erythema. No hematoma. Range of motion limited due to pain. Calf nontender. Thigh nontender. No varicosities. Distal pulses palpable. Wiggles toes. Objective Data Vital Signs Vital Signs: Vital Signs - 24 hr 10/13/22 14:57 10/13/22 17:20 10/13/22 17:35 Temperature 99.6 F 97.9 F Pulse Rate 67 79 65 Respiratory Rate 16 20 18 Blood Pressure 133/53 L 135/56 L 151/97 H Pulse Oximetry 94 100 100 Oxygen Delivery Nasal Cannula Simple Face Mask Simple Face Mask Oxygen Flow Rate 3 8 8 10/13/22 17:50 10/13/22 18:05 10/13/22 18:40 Temperature 97.3 F L Pulse Rate 65 70 66 Respiratory Rate 16 18 18 Blood Pressure 143/58 H 145/54 H 141/48 H Pulse Oximetry 100 92 100 Oxygen Delivery Simple Face Mask Nasal Cannula Oxygen Flow Rate 8 3 10/13/22 18:55 10/13/22 19:07 10/13/22 20:06 Temperature 97.5 F L 96.2 F L 96.2 F L Pulse Rate 65 68 68 Respiratory Rate 18 18 18 Blood Pressure 146/50 H 152/54 H 152/54 H Pulse Oximetry 100 100 100 Oxygen Delivery Oxygen Flow Rate 10/13/22 20:27 10/13/22 15:38 10/13/22 20:43 Temperature 96.0 F L Pulse Rate 68 68 69 Respiratory Rate 18 Blood Pressure 152/54 H Pulse Oximetry 100 97 Oxygen Delivery Nasal Cannula Oxygen Flow Rate 2 10/13/22 20:00 10/14/22 00:07 10/14/22 04:07 Temperature 96.4 F L 96.6 F L Pulse Rate 64 63 Respiratory Rate 18 18 Blood Pressure 143/55 H 140/51 L Pulse Oximetry 96 98 91 Oxygen Delivery Nasal Cannula Oxygen Flow Rate 2 10/14/22 08:25 10/14/22 09:29 10/14/22 09:30 Temperature Pulse Rate 70 70 Respiratory Rate Blood Pressure Pulse Oximetry Oxygen Delivery Nasal Cannula Oxygen Flow Rate 3 10/14/22 09:15 10/14/22 09:28 10/14/22 10:49 Temperature 96.6 F L Pulse Rate 59 L Respiratory Rate 18 Blood Pressure 141/50 H 166/65 H Pulse Oximetry 100 Oxygen Delivery Nasal Cannula Oxygen Flow Rate 3 10/14/22 08:00 Temperature Pulse Rate Respiratory Rate Blood Pressure Pulse Oximetry 100 Oxygen Delivery Nasal Cannula Oxygen Flow Rate 3 Intake/Output Intake/Output: Intake & Output 10/11/22 10/12/22 10/13/22 10/14/22 23:59 23:59 23:59 23:59 Intake Total 916 923 6124 1268 Output Total 2750 1400 600 350 Balance -1880 -620 400 918 Meds/Results Medications: Active Medications Generic Name Dose Route Start Last Admin Trade Name Freq PRN Reason Stop Dose Admin Acetaminophen 1,000 mg 10/15/22 00:00 Acetaminophen 500 Mg Tablet PO Q6HR KAIT Hydrocodone Bitart/Acetaminophen 1 tab 10/11/22 00:28 10/14/22 01:28 Hydrocodone/Acetaminophen (*Crx) 5-325 Mg Tablet PO 1 t
[2022-10-14] MEDS: APIXABAN 2.5 MG TABLET PO (20:01)
[2022-10-14] MEDS: MELATONIN 5 MG TABLET PO (20:01)
[2022-10-14] MEDS: LORazepam (*CRX) 0.5 MG TABLET PO (20:02)
[2022-10-14] MEDS: MORPHINE SULFATE (*CRX) 2 MG/ML INJ IV PUSH (20:06)
[2022-10-14] MEDS: fentaNYL CITRATE INJ (*CRX) 100 MCG/2 ML VIAL 25 MCG IV PUSH (23:10)
[2022-10-14] MEDS: ACETAMINOPHEN 500 MG TABLET 1000 MG PO (23:12)
[2022-10-15] VITALS (10 sets, daily range): BP systolic 124–172; BP diastolic 53–73; PULSE 59–79; RESP 16–20; TEMP 36.1–36.5; O2SAT 11–100
[2022-10-15] MEDS: MORPHINE SULFATE (*CRX) 2 MG/ML INJ IV PUSH ×3 (01:21→15:07)
[2022-10-15] MEDS: LORazepam (*CRX) 0.5 MG TABLET PO ×2 (05:10→19:52)
[2022-10-15] MEDS: ACETAMINOPHEN 500 MG TABLET 1000 MG PO ×4 (05:10→19:52)
[2022-10-15 06:32] LABS: Hematocrit 29.2 % (37.0-47.0); Hemoglobin 9.1 g/dL (12.0-15.0); Mean Corpuscular HGB Conc 31.2 g/dl (32-36); Mean Corpuscular Hemoglobin 31.7 pg (26-34); Mean Corpuscular Volume 101.7 fl (80-100); Mean Platelet Volume 9.8 fl (7.4-10.4); Platelet Count Result 331 k/mm3 (150-375); Red Blood Count 2.87 M/mm3 (4.2-5.4); Red Cell Distribution Width 13.3 % (11.5-14.5); White Blood Count 9.6 K/mm3 (4.5-10.0)
[2022-10-15 07:02] LABS: Blood Urea Nitrogen 38 mg/dL (7-17); Calcium 7.8 mg/dL (8.4-10.2); Carbon Dioxide > 40 mmol/L (22-30); Chloride 100 mmol/L (98-107); Estimated CRCL calculation 31 ml/min; Estimated Glomerular Filt Rate 53; Glucose 94 mg/dL (65-110); Potassium 3.3 mmol/L (3.4-5.0); Sodium 141 mmol/L (137-145)
[2022-10-15] MEDS: polyethylene glycoL 3350 17 GM POWD.PACK PO (08:59)
[2022-10-15] MEDS: SENNA/DOCUSATE SODIUM TABLET 2 TAB PO ×2 (09:00→16:51)
[2022-10-15] MEDS: amLODIPine BESYLATE 5 MG TABLET PO (09:00)
[2022-10-15] MEDS: APIXABAN 2.5 MG TABLET PO ×2 (09:01→19:52)
[2022-10-15] MEDS: FAMOTIDINE 20 MG/2 ML VIAL IV PUSH ×2 (09:01→19:51)
[2022-10-15] MEDS: levoFLOXacin 750 MG TABLET PO (09:01)
[2022-10-15] MEDS: guaiFENesin 12 HR 600 MG TABCR PO ×2 (09:01→19:53)
--- NOTE | 2022-10-15 09:31 | PM.PNORT ---
Progress Note: A&P Assessment and Plan (1) Left displaced femoral neck fracture: Code(s): S72.002A - Fracture of unspecified part of neck of left femur, initial encounter for closed fracture Status: Acute Plan Postop day 2: Left bipolar hip arthroplasty. Patient tolerated procedure well. No complications. Pain manageable. She notes pain is improving each day. No numbness or tingling. Patient will need to be discharged to SNF/rehab. Ortho instructions: D/C to SNF/rehab Xray in 4weeks. f/u in office in 6 weeks if able. Wound Care: Remove Mepilex dressing at 7 days post op. Remove steristrips at 14 days post op. May shower. No soaking. PT: Weight bearing as tolerated with a walker. DVT prophylaxis: Eliquis Pain medication: Tylenol. Subjective Subjective Date/Time Seen: 10/15/22 09:31 Interval history: Patient resting comfortably in bed. No acute distress. States she is having mild pain that is better than it was yesterday. No numbness or tingling. Wiggles toes. Review of Systems Review of Systems: All systems reviewed & are unremarkable except as noted in HPI and below Exam Narrative: Thin 82 y/o female. Resting comfortably in bed. Wearing compression socks bilaterally. Dressing dry and intact with no drainage. Moderate swelling. No edema. No ecchymosis. No erythema. No hematoma. Range of motion limited due to pain. Calf nontender. Thigh nontender. No varicosities. Distal pulses palpable. Wiggles toes. Objective Data Vital Signs Vital Signs: Vital Signs - 24 hr 10/14/22 10:49 10/14/22 14:56 10/14/22 18:25 Temperature 96.6 F L 97.6 F 96.5 F L Pulse Rate 59 L 60 65 Respiratory Rate 18 18 18 Blood Pressure 166/65 H 164/64 H 139/47 L Pulse Oximetry 100 99 94 Oxygen Delivery Oxygen Flow Rate 10/14/22 19:47 10/14/22 20:02 10/14/22 20:17 Temperature 97.1 F L Pulse Rate 80 80 Respiratory Rate 18 Blood Pressure 152/55 H Pulse Oximetry 91 95 Oxygen Delivery Nasal Cannula Oxygen Flow Rate 2 10/14/22 20:00 10/14/22 23:30 10/15/22 05:06 Temperature 97.0 F L 97.0 F L Pulse Rate 80 61 59 L Respiratory Rate 18 18 18 Blood Pressure 152/57 H 148/53 H Pulse Oximetry 95 100 100 Oxygen Delivery Nasal Cannula Oxygen Flow Rate 3 Intake/Output Intake/Output: Intake & Output 10/12/22 10/13/22 10/14/22 10/15/22 23:59 23:59 23:59 23:59 Intake Total 780 1000 1708 120 Output Total 1400 600 350 Balance -184 410 3861 120 Meds/Results Medications: Active Medications Generic Name Dose Route Start Last Admin Trade Name Freq PRN Reason Stop Dose Admin Acetaminophen 1,000 mg 10/15/22 00:00 10/15/22 05:10 Acetaminophen 500 Mg Tablet PO 1,000 mg Q6HR KAIT Administration Hydrocodone Bitart/Acetaminophen 1 tab 10/11/22 00:28 10/14/22 14:56 Hydrocodone/Acetaminophen (*Crx) 5-325 Mg Tablet PO 1 tab Q6H PRN Administration Pain Rated 4-6 Albuterol 2 puff 10/11/22 20:00 10/15/22 01:49 Albuterol Sulfate (*Sp) Aerosol 1 Puff INHALATION Not Given Q6HRT KAIT Amiodarone HCl 200 mg 10/11/22 08:00 10/15/22 09:02 Amiodarone Hcl 200 Mg Tablet PO Not Given DAILY@0800 KAIT Amlodipine Besylate 5 mg 10/15/22 09:00 10/15/22 09:00 Amlodipine Besylate 5 Mg Tablet PO 5 mg QAM KAIT Administration Apixaban 2.5 mg 10/14/22 21:00 10/15/22 09:01 Apixaban 2.5 Mg Tablet PO 2.5 mg Q12HR KAIT Administration Clonidine HCl 0.1 mg 10/11/22 06:39 Clonidine Hcl 0.1 Mg Tablet PO TID PRN Hypertension Famotidine 20 mg 10/13/22 21:00 10/15/22 09:01 Famotidine 20 Mg/2 Ml Vial IV PUSH 20 mg Q12HR KAIT Administration Fentanyl Citrate 25 mcg 10/13/22 15:37 10/14/22 23:10 Fentanyl Citrate Inj (*Crx) 100 Mcg/2 Ml Vial IV PUSH 25 mcg Q2M PRN Administration Pain Guaifenesin 600 mg 10/11/22 09:00 10/15/22 09:01 Guaifenesin 12 Hr 600 Mg Tabcr PO 600 mg Q12HR KAIT Administratio
--- NOTE | 2022-10-15 10:27 | PCOTNOTE ---
Attempted to see patient this am. Pt was sleeping upon entering and unable to arouse for functional OT at this time. Per PT assistance, patient just finished physical therapy and seemed kind of wiped.
[2022-10-15] MEDS: ALBUTEROL SULFATE (*SP) AEROSOL 1 PUFF 2 PUFF INHALATION ×3 (10:40→20:10)
--- NOTE | 2022-10-15 10:44 | PCRCNOTE ---
RT attempted MDI, pt was unable to perform due to not wanting to wake up.
--- NOTE | 2022-10-15 11:53 | PM.IMPN ---
Progress Note: A&P Assessment and Plan (1) Acute respiratory failure: Qualifiers: Respiratory failure complication: hypoxia and hypercapnia Qualified Code(s): J96.01 - Acute respiratory failure with hypoxia; J96.02 - Acute respiratory failure with hypercapnia; J96.02 - Acute respiratory failure with hypercapnia Code(s): J96.00 - Acute respiratory failure, unspecified whether with hypoxia or hypercapnia Status: Acute Assessment and Plan: Acute on chronic, at baseline patient wears 3L O2. Multifactorial most likely related to pneumonia versus COPD exacerbation. Less likely CHF exacerbation. Continue IV solu-medrol, wean to BID. Change to oral prednisone when able to take PO. Continue scheduled albuterol, changed to MDI for presumed better ease of use than nebulizer treatment Continue to hold diuretics. Repeat CXR with increase in opacities, however, patient appears clinically improving and at baseline O2 needs. Patient O2 decreased to 2 L and satting at 100 (2) Left displaced femoral neck fracture: Code(s): S72.002A - Fracture of unspecified part of neck of left femur, initial encounter for closed fracture Status: Acute Assessment and Plan: Hip imaging shows displaced left femoral neck fracture. Orthopedic surgery consulted and appreciate recommendations. RCRI score 1, 0.9% MACE risk elevated. METs 2-3. Patient's functional status and comorbidities place her at high risk. Optimize medical therapy- continue beta-jazmine and amiodarone, Held eliquis preop. continued aspirin as recommended preop Echo from last admission shows normal LV systolic function, EF 60-65%, indeterminate diastolic function, mild mitral valve regurgitations. Continue analgesics for pain. Monitor respiratory status. 10/13/22 s/p Bipolar hemiarthroplasty left hip. EBL 50. DVT prophylaxis changed to Eliquis 2.5 mg BID for pafib as well. Lowered dose due to age>80, Kg <60. Postop management per Ortho. PT/OT evaluation. (3) CHF (congestive heart failure): Qualifiers: Heart failure chronicity: acute on chronic Heart failure type: diastolic Qualified Code(s): I50.33 - Acute on chronic diastolic (congestive) heart failure Code(s): I50.9 - Heart failure, unspecified Status: Chronic Assessment and Plan: Patient's BNP within normal limits for patient's age. Echocardiogram revealed normal systolic function and indeterminate diastolic function. CHF on differential but patient has not been diagnosed. Hold IV diuretics for now. Monitor daily weights and I/O. Stable. (4) Community acquired pneumonia: Qualifiers: Lung location: upper lobe of lung Code(s): J18.9 - Pneumonia, unspecified organism Status: Acute Assessment and Plan: Afebrile on admission, WBC >19, RR>30, HR 70, BP 146/52, lactic acid 1.9. with suspected pneumonia bilateral upper lobes from chest x-ray. Patient meets sepsis criteria with hypoxia. Speech swallow evaluation without s/s aspiration. Continue broad-spectrum IV antibiotics- IV cefepime 2 grams and IV vancomycin pharmacy to dose for pseudomonas and MRSA coverage given recent hospitalization and antibiotic use. she also resides in assisted living. Stopped metronidazole as aspiration pna appears less likely. Preliminary blood cultures no growth today. MRSA culture negative Transition to oral antibiotics pending cultures and plans for surgery. Change to Levaquin 750 mg Q48 hours x 2 doses to complete total 7-day antibiotic course. Levaquin selected due to pseudomonas coverage. Monitor while also taking amiodarone due to risk QT-prolongation, however, pre-op EKG 10/10 shows QTc 438 and not prolonged. Patient to receive only 2 total doses of levaquin. Consider repeat EKG in 48 hours if patient is still hospitalized. White blood cell count trending down. Today WBC 9.6. (5) Chronic obstructive pulmonary disease: Qualif
--- NOTE | 2022-10-15 14:07 | PC.NURSE ---
On 10/15/22, the student, [Aurora Lau], provided care and completed [facility] documentation on this patient. I have reviewed the student's documentation and agree with the findings.
[2022-10-15] MEDS: METOPROLOL TARTRATE 50 MG TAB 100 MG PO (19:51)
[2022-10-15] MEDS: MELATONIN 5 MG TABLET PO (19:53)
[2022-10-15] MEDS: MORPHINE SULFATE (*CRX) 2 MG/ML INJ 1 MG IV PUSH (23:46)
[2022-10-16 05:44] VITALS: BP 163/60; PULSE 69; RESP 16; TEMP 36.6; O2SAT 91
[2022-10-16 06:11] LABS: Hematocrit 30.6 % (37.0-47.0); Hemoglobin 9.5 g/dL (12.0-15.0); Mean Corpuscular Hemoglobin 32.3 pg (26-34); Mean Corpuscular Volume 104.1 fl (80-100); Mean Platelet Volume 9.8 fl (7.4-10.4); Platelet Count Result 339 k/mm3 (150-375); Red Blood Count 2.94 M/mm3 (4.2-5.4); Red Cell Distribution Width 13.2 % (11.5-14.5); White Blood Count 10.2 K/mm3 (4.5-10.0)
[2022-10-16 06:27] LABS: Alanine Aminotransferase 78 U/L (6-35); Albumin Level 2.7 g/dL (3.5-5.1); Alkaline Phosphatase 138 U/L (38-126); Anion Gap 3 mmol/L (8-16); Aspartate Amino Transferase 77 U/L (14-36); Bilirubin,Total 0.5 mg/dL (0.2-1.3); Blood Urea Nitrogen 35 mg/dL (7-17); Calcium 7.7 mg/dL (8.4-10.2); Carbon Dioxide 37 mmol/L (22-30); Chloride 102 mmol/L (98-107); Estimated CRCL calculation 38 ml/min; Estimated Glomerular Filt Rate > 60; Glucose 81 mg/dL (65-110); Potassium 3.4 mmol/L (3.4-5.0); Sodium 142 mmol/L (137-145)
[2022-10-16 09:15] VITALS: O2SAT 98
[2022-10-16] MEDS: guaiFENesin 12 HR 600 MG TABCR PO (09:19)
[2022-10-16] MEDS: FAMOTIDINE 20 MG/2 ML VIAL IV PUSH (09:19)
[2022-10-16] MEDS: SENNA/DOCUSATE SODIUM TABLET 2 TAB PO ×2 (09:19→18:06)
[2022-10-16 09:20] VITALS: PULSE 62
[2022-10-16] MEDS: AMIODARONE HCL 200 MG TABLET PO (09:20)
[2022-10-16] MEDS: amLODIPine BESYLATE 5 MG TABLET PO (09:20)
[2022-10-16] MEDS: APIXABAN 2.5 MG TABLET PO (09:20)
[2022-10-16 09:22] VITALS: PULSE 62
[2022-10-16] MEDS: METOPROLOL TARTRATE 50 MG TAB 100 MG PO (09:22)
[2022-10-16 09:49] VITALS: BP 137/42; PULSE 70; RESP 17; TEMP 36.3; O2SAT 98
--- NOTE | 2022-10-16 11:32 | PCNFU ---
Nutrition Follow-Up Complete: Potential for inadequate oral intake related to loss of appetite, acute medical condition as evidenced by need for surgery, prior hospice. Goal: Adequate PO intake at least 75% meals Patient is meeting goal. No new goal. Pt current nutrition is Regular with Ensure Compact TID. Last recorded weight is 53.2 kg. Bowel Motility:+Bm reported 10/15 Labs Reviewed:BUN 35, Alb 2.7,Hgb 9.5,Hct 30.6 Meds Noted:Pepcid, Ativan,Mucinex Skin: WNL Additional Notes:Patient remains on a regular diet. Oral intake 50-100% of meal. Diet supplements of Ensure compact is providing an additional 220 kcals and 9 gms protein. Agree with diet orders. Monitoring for diet advancement, intakes, weights, labs, plan of care every 5 days.
--- NOTE | 2022-10-16 12:42 | PM.IMPN ---
Progress Note: A&P Assessment and Plan (1) Acute respiratory failure: Qualifiers: Respiratory failure complication: hypoxia and hypercapnia Qualified Code(s): J96.01 - Acute respiratory failure with hypoxia; J96.02 - Acute respiratory failure with hypercapnia; J96.02 - Acute respiratory failure with hypercapnia Code(s): J96.00 - Acute respiratory failure, unspecified whether with hypoxia or hypercapnia Status: Acute Assessment and Plan: Acute on chronic, at baseline patient wears 3L O2. Multifactorial most likely related to pneumonia versus COPD exacerbation. Less likely CHF exacerbation. Continue IV solu-medrol, wean to BID. Change to oral prednisone when able to take PO. Continue scheduled albuterol, changed to MDI for presumed better ease of use than nebulizer treatment Continue to hold diuretics. Repeat CXR with increase in opacities, however, patient appears clinically improving and at baseline O2 needs. Patient O2 decreased to 2 L and satting at 100 Patient's lungs clear Plan to discharge tomorrow pending CT results and respiratory status. (2) Left displaced femoral neck fracture: Code(s): S72.002A - Fracture of unspecified part of neck of left femur, initial encounter for closed fracture Status: Acute Assessment and Plan: Hip imaging shows displaced left femoral neck fracture. Orthopedic surgery consulted and appreciate recommendations. RCRI score 1, 0.9% MACE risk elevated. METs 2-3. Patient's functional status and comorbidities place her at high risk. Optimize medical therapy- continue beta-jazmine and amiodarone, Held eliquis preop. continued aspirin as recommended preop Echo from last admission shows normal LV systolic function, EF 60-65%, indeterminate diastolic function, mild mitral valve regurgitations. Continue analgesics for pain. Monitor respiratory status. 10/13/22 s/p Bipolar hemiarthroplasty left hip. EBL 50. DVT prophylaxis changed to Eliquis 2.5 mg BID for pafib as well. Lowered dose due to age>80, Kg <60. Postop management per Ortho. PT/OT evaluation. Continue to work with PT/OT (3) CHF (congestive heart failure): Qualifiers: Heart failure type: diastolic Heart failure chronicity: acute on chronic Qualified Code(s): I50.33 - Acute on chronic diastolic (congestive) heart failure Code(s): I50.9 - Heart failure, unspecified Status: Chronic Assessment and Plan: Patient's BNP within normal limits for patient's age. Echocardiogram revealed normal systolic function and indeterminate diastolic function. CHF on differential but patient has not been diagnosed. Hold IV diuretics for now. Monitor daily weights and I/O. Stable. (4) Community acquired pneumonia: Qualifiers: Lung location: upper lobe of lung Code(s): J18.9 - Pneumonia, unspecified organism Status: Acute Assessment and Plan: Afebrile on admission, WBC >19, RR>30, HR 70, BP 146/52, lactic acid 1.9. with suspected pneumonia bilateral upper lobes from chest x-ray. Patient meets sepsis criteria with hypoxia. Speech swallow evaluation without s/s aspiration. Continue broad-spectrum IV antibiotics- IV cefepime 2 grams and IV vancomycin pharmacy to dose for pseudomonas and MRSA coverage given recent hospitalization and antibiotic use. she also resides in assisted living. Stopped metronidazole as aspiration pna appears less likely. Preliminary blood cultures no growth today. MRSA culture negative Transition to oral antibiotics pending cultures and plans for surgery. Change to Levaquin 750 mg Q48 hours x 2 doses to complete total 7-day antibiotic course. Levaquin selected due to pseudomonas coverage. Monitor while also taking amiodarone due to risk QT-prolongation, however, pre-op EKG 10/10 shows QTc 438 and not prolonged. Patient to receive only 2 total doses of Levaquin. Consider repeat EKG in 48 hours if patient is still hospital
--- NOTE | 2022-10-16 12:57 | PM.DS ---
DS: Admitting Diagnosis Discharge Date 10/16/2022 Admitting Diagnosis Fall, left hip fracture, pneumonia DS: Discharge Diagnosis Discharge Diagnosis (1) Acute respiratory failure: Qualifiers: Respiratory failure complication: hypoxia and hypercapnia Qualified Code(s): J96.01 - Acute respiratory failure with hypoxia; J96.02 - Acute respiratory failure with hypercapnia; J96.02 - Acute respiratory failure with hypercapnia Code(s): J96.00 - Acute respiratory failure, unspecified whether with hypoxia or hypercapnia Status: Acute (2) Left displaced femoral neck fracture: Code(s): S72.002A - Fracture of unspecified part of neck of left femur, initial encounter for closed fracture Status: Acute (3) CHF (congestive heart failure): Qualifiers: Heart failure chronicity: acute on chronic Heart failure type: diastolic Qualified Code(s): I50.33 - Acute on chronic diastolic (congestive) heart failure Code(s): I50.9 - Heart failure, unspecified Status: Chronic (4) Community acquired pneumonia: Qualifiers: Lung location: upper lobe of lung Code(s): J18.9 - Pneumonia, unspecified organism Status: Acute (5) Chronic obstructive pulmonary disease: Qualifiers: COPD type: COPD with acute lower respiratory infection Qualified Code(s): J44.0 - Chronic obstructive pulmonary disease with (acute) lower respiratory infection Code(s): J44.9 - Chronic obstructive pulmonary disease, unspecified Status: Chronic (6) Dementia: Qualifiers: Dementia behavioral or psychological symptom: without behavioral, psychotic, or mood disturbance or anxiety Dementia severity: severe Dementia type: unspecified type Qualified Code(s): F03.C0 - Unspecified dementia, severe, without behavioral disturbance, psychotic disturbance, mood disturbance, and anxiety Code(s): F03.90 - Unspecified dementia, unspecified severity, without behavioral disturbance, psychotic disturbance, mood disturbance, and anxiety Status: Chronic (7) Hypertension: Qualifiers: Hypertension type: primary hypertension Qualified Code(s): I10 - Essential (primary) hypertension Code(s): I10 - Essential (primary) hypertension Status: Acute (8) Paroxysmal atrial fibrillation: Code(s): I48.0 - Paroxysmal atrial fibrillation Status: Chronic (9) Elevated LFTs: Code(s): R79.89 - Other specified abnormal findings of blood chemistry Status: Acute (10) Transitioned from hospice to acute care: Status: Chronic Plan CODE STATUS: FULL CODE Disposition: Inpatient Discharge destination: SNF versus return to assisted living facility on hospice. DS: Summary Hospital Course Reason for hospitalization: Fall, right hip fracture Hospital Course: 82-year-old patient with a history COPD, hypertension, dementia. Patient arrived to the ER on 10/10/2022 due to a fall. Patient had an unwitnessed fall at her assisted living. Family discharge patient from hospice so that she could be admitted to the hospital. Hip/pelvis x-ray revealed displaced left femoral neck fracture. 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 Cervical spine CT revealed no acute abnormality. Chest x-ray revealed stable patchy bilateral airspace disease consistent with pneumonia and small right pleural effusion. Patient was admitted to the hospital patient was started on IV Solu-Medrol b.i.d. then transition to prednisone for acute COPD exacerbation. Patient given IV broad-spectrum antibiotics (vanc, metronidazole, cefepime) due to recent hospitalization for pneumonia. Patient was admitted on 4 L nasal cannula and wean to 2 L. Eliquis was held due to pending orthopedic surgery. Echo revealed EF of 60 65% from previous admission indeterminate diastolic function and mitral valve regurg. Pat
--- NOTE | 2022-10-16 13:00 | PCOTNOTE ---
Attempted to see patient this pm, however patient refused. Upon entering, lunch tray at bedside. Encouraged patient to eat, and patient stated, I don't need to eat. Pt declined ADLs and activity up to chair stating, I'm in the chair. Oriented patient that she was laying in the bed at this time. Pt stated, Well that's as far as I'm going.
[2022-10-16] MEDS: ACETAMINOPHEN 500 MG TABLET 1000 MG PO ×2 (13:16→18:06)
--- NOTE | 2022-10-16 13:32 | PC.NURSE ---
On 10/16/22, the student, [Sobeida Hammonds], provided care and completed [facility] documentation on this patient. I have reviewed the student's documentation and agree with the findings.
[2022-10-16 14:00] VITALS: BP 140/48; PULSE 59; RESP 18; TEMP 36.3; O2SAT 100
[2022-10-16] MEDS: ALBUTEROL SULFATE (*SP) AEROSOL 1 PUFF 2 PUFF INHALATION (14:38)
--- NOTE | 2022-10-16 16:03 | PM.PNORT ---
Progress Note: A&P Assessment and Plan (1) Left displaced femoral neck fracture: Code(s): S72.002A - Fracture of unspecified part of neck of left femur, initial encounter for closed fracture Status: Acute Plan Postop day 3: Left bipolar hip arthroplasty. Patient tolerated procedure well. No complications. Pain manageable. She notes pain is improving each day. Mentation improving slightly. No numbness or tingling. Patient will need to be discharged to SNF/rehab. Ortho instructions: D/C to SNF/rehab Xray in 4weeks. f/u in office in 6 weeks if able. Wound Care: Remove Mepilex dressing at 7 days post op. Remove steristrips at 14 days post op. May shower. No soaking. PT: Weight bearing as tolerated with a walker. DVT prophylaxis: Eliquis Pain medication: Tylenol. Subjective Subjective Date/Time Seen: 10/16/22 16:03 Interval history: Patient resting comfortably in bed. No pain. No other complaints. No numbness or tingling. Review of Systems Review of Systems: All systems reviewed & are unremarkable except as noted in HPI and below Exam Narrative: Thin 82 y/o female. Resting comfortably in bed. Wearing compression socks bilaterally. Dressing dry and intact with no drainage. Moderate swelling. No edema. No ecchymosis. No erythema. No hematoma. Range of motion limited due to pain. Calf nontender. Thigh nontender. No varicosities. Distal pulses palpable. Wiggles toes. Objective Data Vital Signs Vital Signs: Vital Signs - 24 hr 10/15/22 18:03 10/15/22 19:51 10/15/22 20:04 Temperature 97.6 F 97.7 F Pulse Rate 62 68 79 Respiratory Rate 20 16 Blood Pressure 146/61 H 165/63 H Pulse Oximetry 11 L 99 Oxygen Delivery Oxygen Flow Rate 10/15/22 20:11 10/15/22 20:00 10/16/22 05:44 Temperature 97.8 F Pulse Rate 79 69 Respiratory Rate 16 16 Blood Pressure 163/60 H Pulse Oximetry 99 99 91 Oxygen Delivery Nasal Cannula Nasal Cannula Oxygen Flow Rate 3 3 10/16/22 09:20 10/16/22 09:22 10/16/22 09:49 Temperature 97.4 F L Pulse Rate 62 62 70 Respiratory Rate 17 Blood Pressure 137/42 L Pulse Oximetry 98 Oxygen Delivery Oxygen Flow Rate 10/16/22 09:15 10/16/22 09:15 10/16/22 14:00 Temperature 97.3 F L Pulse Rate 59 L Respiratory Rate 18 Blood Pressure 140/48 L Pulse Oximetry 98 98 100 Oxygen Delivery Nasal Cannula Nasal Cannula Oxygen Flow Rate 3 3 Intake/Output Intake/Output: Intake & Output 10/13/22 10/14/22 10/15/22 10/16/22 23:59 23:59 23:59 23:59 Intake Total 1000 1708 860 605 Output Total 600 350 400 400 Balance 400 1358 460 205 Meds/Results Medications: Active Medications Generic Name Dose Route Start Last Admin Trade Name Freq PRN Reason Stop Dose Admin Acetaminophen 1,000 mg 10/15/22 00:00 10/16/22 13:16 Acetaminophen 500 Mg Tablet PO 1,000 mg Q6HR KAIT Administration Hydrocodone Bitart/Acetaminophen 1 tab 10/11/22 00:28 10/14/22 14:56 Hydrocodone/Acetaminophen (*Crx) 5-325 Mg Tablet PO 1 tab Q6H PRN Administration Pain Rated 4-6 Albuterol 2 puff 10/11/22 20:00 10/16/22 14:38 Albuterol Sulfate (*Sp) Aerosol 1 Puff INHALATION 2 puff Q6HRT KAIT Administration Amiodarone HCl 200 mg 10/11/22 08:00 10/16/22 09:20 Amiodarone Hcl 200 Mg Tablet PO 200 mg DAILY@0800 KAIT Administration Amlodipine Besylate 5 mg 10/15/22 09:00 10/16/22 09:20 Amlodipine Besylate 5 Mg Tablet PO 5 mg QAM KAIT Administration Apixaban 2.5 mg 10/14/22 21:00 10/16/22 09:20 Apixaban 2.5 Mg Tablet PO 2.5 mg Q12HR KAIT Administration Clonidine HCl 0.1 mg 10/11/22 06:39 Clonidine Hcl 0.1 Mg Tablet PO TID PRN Hypertension Famotidine 20 mg 10/13/22 21:00 10/16/22 09:19 Famotidine 20 Mg/2 Ml Vial IV PUSH 20 mg Q12HR KAIT Administration Fentanyl Citrate 25 mcg 10/13/22 15:37 10/14/22 23:10 Fentanyl Citrate Inj (*Crx) 100 Mcg/2 Ml Vial IV PUSH
[2022-10-16 16:40] LABS: EDCOVIDSCREEN Negative (Negative)
== END 2022-10-16 19:05 | DRG 521 ==
LOC: ANHED 22:42 → ANH2MED 10-11 00:26
PROVIDERS: Nurse Practitioner Family; Orthopaedic Surgery; Physician Assistant Surgical; Admitting Provider Internal Medicine; Emergency Provider Emergency Medicine; PCP Nurse Practitioner Family; Visit Provider Internal Medicine Critical Care Medicine
PROC: 0SRS0JZ Replacement of Left Hip Joint, Femoral Surface with Synthetic Substitute, Open Approach (ICD-10-PCS; CPT 27125; principal; 2022-10-13 15:30)
DX: S72.092A Other fracture of head and neck of left femur, initial encounter for closed fracture (principal); J18.9 Pneumonia, unspecified organism; I50.33 Acute on chronic diastolic (congestive) heart failure; J96.01 Acute respiratory failure with hypoxia; J96.02 Acute respiratory failure with hypercapnia; J44.0 Chronic obstructive pulmonary disease with (acute) lower respiratory infection; J44.1 Chronic obstructive pulmonary disease with (acute) exacerbation; Z20.822 Contact with and (suspected) exposure to COVID-19; F03.90 Unspecified dementia, unspecified severity, without behavioral disturbance, psychotic disturbance, mood disturbance, and anxiety; I48.0 Paroxysmal atrial fibrillation; K76.1 Chronic passive congestion of liver; I11.0 Hypertensive heart disease with heart failure; R79.89 Other specified abnormal findings of blood chemistry; W19.XXXA Unspecified fall, initial encounter; Z66 Do not resuscitate; Z79.01 Long term (current) use of anticoagulants; Z87.891 Personal history of nicotine dependence
CPT/HCPCS: 36415; 36600; 70450; 71045; 71046; 72125; 73502; 80048; 80053; 80202; 82375; 82805; 83050; 83605; 83735; 83880; 84484; 85014; 85018; 85025; 85027; 85610; 85730; 86850; 86900; 86901; 87040; 87081; 87426; 87636; 92523; 92610; 93005; 94640; 96365; 96367; 96375; 97110; 97161; 97167; 97530; 99285; A9270; C1776; C9803; G0378; J0131; J0171; J0456; J0690; J0692; J0696; J1100; J1630; J1644; J1650; J1940; J2270; J2405; J2704; J2795; J2920; J2930; J3010; J3370; J3480; J7030; J7040; J7120

== ENCOUNTER 2022-10-25 08:55 | Inpatient (IN) | payer MEDICARE, SELFPAY ==
[2022-10-25] VITALS (35 sets, daily range): BP systolic 119–168; BP diastolic 46–75; PULSE 57–83; RESP 15–29; TEMP 36.6–36.8; O2SAT 90–100; BMI 21.4
--- NOTE | ~2022-10-25 | XR_ITS ---
EXAMINATION: XR hip LT 2V w AP pelvis INDICATION: Left hip pain after fall TECHNIQUE: AP view of the pelvis and two views of the left hip are obtained. COMPARISON: 10/13/2022 FINDINGS: There are changes of left hip hemiarthroplasty. The acetabular and femoral components of th e arthroplasty are superolaterally displaced from the acetabulum. No fracture is identified. There is moderate spondylosis of the lower lumbar spine. Calcified atherosclerosis is noted. IMPRESSION: 1. Superolateral dislocation of the left hip hemiarthroplasty. Reviewed, dictated and finalized at location A. CAL UNDERWRITER
--- NOTE | ~2022-10-25 | XR_ITS ---
EXAMINATION: XR pelvis 1-2V INDICATION: Post reduction TECHNIQUE: AP view of the pelvis is obtained. COMPARISON: 0929 hours FINDINGS: The left hip arthroplasty has been reduced to expected position. Alignment is normal. No fr acture is identified. 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 The soft tissues are unremar kable. IMPRESSION: 1. Reduced dislocation of the left hip arthroplasty. Reviewed, dictated and finalized at location A. EL MAINTENANCE ELECTRICIAN
--- NOTE | ~2022-10-25 | CT_ITS ---
EXAMINATION: CT brain wo con INDICATION: Head injury COMPARISON: 10/10/2022 TECHNIQUE: Standard unenhanced head CT. The dose-length product (DLP) was 832.33 mGy-cm. The mA was a djusted according to patient size. Iterative reconstruction technique was employed. FINDINGS: There is no acute intraparenchymal hemorrhage. No evidence of mass lesion. No evidence of a cute infarction. There is moderate periventricular and subcortical hypodensity probably related to sm all vessel ischemic disease. There is moderate prominence of the sulci and ventricles related to cere bral atrophy. Intracranial calcified cerebral atherosclerosis is noted. There are no extra-axial shavon ections. There is no mass effect or midline shift. Changes in the globes are likely from ocular lens surgery. The visualized sinuses and mastoid air cells are well aerated. IMPRESSION: 1. No acute intracranial abnormality. 2. Age related findings. Reviewed, dictated and finalized at location A. L SPECIALIST
--- NOTE | ~2022-10-25 | XR_ITS ---
EXAMINATION: XR chest 1V INDICATION: COVID 19 positive TECHNIQUE: Portable AP chest at 1047 hours COMPARISON: 10/13/2022 FINDINGS: Airspace opacities of the upper lung zones persist but have improved. No pleural effusion o r pneumothorax. The cardiomediastinal silhouette is normal. IMPRESSION: 1. Persistent but improved airspace opacities of the upper lung zones, likely resolving pneumonia. Reviewed, dictated and finalized at location A. CY DIRECTOR IMPRESSION: 1. Persistent but improved airspace opacities of the upper lung zones, likely r esolving pneumonia.
--- NOTE | ~2022-10-25 | CT_ITS ---
EXAMINATION: CT cervical spine wo con DATE: 10/25/2022 10:28 INDICATION: Head injury TECHNIQUE: Computed tomography (CT) of the cervical spine was performed without intravenous contrast. The dose-length product (DLP) was 152.03 mGy-cm. Automated exposure control and iterative reconstruc tion technique were employed. COMPARISON: 10/10/2022 FINDINGS: There are 4 mm of stable anterolisthesis of C3 on C4 and 2 mm of stable anterolisthesis of C4 on C5. There are 2 mm of anterolisthesis of C7 on T1. No fracture is identified. There is severe l oss of intervertebral disc space height at C5-6 and C6-7. The vertebral body heights are maintained. The odontoid is intact. The prevertebral soft tissues are normal. There is multilevel severe facet an d uncovertebral joint osteoarthritis. IMPRESSION: 1. Severe cervical spondylosis without acute findings or significant interval change. Reviewed, dictated and finalized at location A. NG HELPER IMPRESSION: 1. Severe cervical spondylosis without acute findings or significant interval c jovita.
--- NOTE | 2022-10-25 09:22 | PC.NURSE ---
Pt to XRAY and CT scan via stretcher at this time.
--- NOTE | 2022-10-25 09:23 | ED.LOWEXIN ---
HPI - Extremity Injury (Lower) General Chief Complaint: Extremity Injury, Lower Stated Complaint: left hip pain Time Seen by Provider: 10/25/22 08:58 History of Present Illness HPI Narrative: 82-year-old female with a history of Alzheimer's dementia, who is 12 days postop from left hip bipolar hemiarthroplasty due to femoral neck fracture with Dr. Matthews here for evaluation after a fall at her nursing facility. This was an unwitnessed fall, patient is unsure what happened but she states that she just slipped . She was found by EMS in a wheelchair grimacing and reporting left hip pain. Patient denies head injury or loss of consciousness. No further injury sustained per patient. Related Data Home Medications Medication Instructions Recorded Confirmed acetaminophen 325 mg tablet 650 mg PO Q4H PRN Pain 10/02/22 10/25/22 albuterol sulfate 90 mcg/actuation 2 puff inhalation Q6H PRN 10/02/22 10/25/22 aerosol inhaler Shortness Of Breath amiodarone 200 mg tablet 200 mg PO DAILY 10/02/22 10/25/22 amlodipine 5 mg tablet (Norvasc) 5 mg PO DAILY 10/02/22 10/25/22 apixaban 2.5 mg tablet (Eliquis) 2.5 mg PO BID 10/02/22 10/25/22 aspirin 81 mg tablet,delayed 81 mg PO DAILY 10/02/22 10/25/22 release clonidine HCl 0.1 mg tablet 0.1 mg PO TID PRN Hypertension 10/02/22 10/25/22 metoprolol tartrate 50 mg tablet 100 mg PO BID 10/02/22 10/25/22 albuterol sulfate 2.5 mg/3 mL 2.5 mg Q4-6H PRN Shortness Of 10/11/22 10/25/22 (0.083 %) solution for nebulization Breath morphine concentrate 100 mg/5 mL 5 mg PO Q4-6H PRN Pain 10/11/22 10/25/22 (20 mg/mL) oral solution sennosides 8.6 mg tablet (Senna 8.6 mg PO DAILY 10/11/22 10/25/22 Lax) benzonatate 100 mg capsule 200 mg PO TID 10/25/22 10/25/22 furosemide 20 mg tablet 20 mg PO DAILY 10/25/22 10/25/22 Allergies Allergy/AdvReac Type Severity Reaction Status Date / Time No Known Allergies Allergy Verified 10/25/22 09:23 [facility] Past Medical History Medical History CHF (congestive heart failure) 10/03/22 Echo- normal LV systolic function, EF 60-65%, diastolic dysfunction intermediate Chronic anticoagulation Chronic obstructive pulmonary disease Chronic respiratory failure with hypoxia and hypercapnia Dementia Hypertension Paroxysmal atrial fibrillation Surgical History Surgical History Surgical history unknown Family History Family History Other Family history unknown Social History Social History Social History: Surrogate medical decision maker: skylar Hutchins. Code status: Do not resuscitate. Years smoked: 25 Smoking status: Unknown if ever smoked Additional smoking assessment comments: Smoke for 23 years. Unk information. Alcohol intake: unknown Substance use: former Substance use type: does not use Additional living arrangements comments: Assisted living at [facility]. Gender identity (if verbalized by the patient): Female Sexual Orientation (if Verbalized by the Patient): Straight or Heterosexual Spiritual care concerns: No Exam Narrative: APPEARANCE: Frail appearing. Head: Normocephalic and atraumatic. EYES: PERRLA/EOMI, conjunctivae clear NOSE: No nasal drainage EARS: External ear normal in appearance THROAT: Oropharynx is clear. Mucous membranes are moist. NECK: Supple. No adenopathy, no masses. RESPIRATORY: Airway patent, respirations nonlabored. Clear to auscultation bilaterally, no rales, rhonchi, wheezing. CARDIOVASCULAR: Doppler signals to bilateral DP and PT. regular rate and rhythm without murmurs, rubs, or gallops. ABDOMINAL: Normoactive bowel sounds. Soft, nontender, nondistended. No rebound tenderness or guarding. MUSCULOSKELETAL: Left hip is shortened and internally rotated. Pitting edema overlyin
[2022-10-25 09:37] LABS: Add Urine Microscopic? NO; Bilirubin Urine Negative (Negative); Blood Urine Negative (Negative); Color Urine Light Yellow (Yellow); Glucose Urine UA Negative (Negative); Ketones Urine Negative (Negative); Leukocyte Esterase Ur Negative LEU/UL (Negative); Nitrate Urine Negative (Negative); Protein Urine Negative (Negative); Urobilinogen Urine 0.2 mg/dL (<2.0)
[2022-10-25] MEDS: MORPHINE SULFATE (*CRX) 2 MG/ML INJ IV PUSH (09:37)
[2022-10-25 09:44] LABS: Appearance Urine Clear (Clear)
[2022-10-25 10:02] LABS: Alanine Aminotransferase 33 U/L (6-35); Albumin Level 3.4 g/dL (3.5-5.1); Alkaline Phosphatase 151 U/L (38-126); Anion Gap 6 mmol/L (8-16); Aspartate Amino Transferase 32 U/L (14-36); Bilirubin,Total 0.8 mg/dL (0.2-1.3); Blood Urea Nitrogen 21 mg/dL (7-17); Carbon Dioxide 33 mmol/L (22-30); Chloride 100 mmol/L (98-107); Estimated CRCL calculation 37 ml/min; Estimated Glomerular Filt Rate 60; Glucose 169 mg/dL (65-110); Potassium 3.2 mmol/L (3.4-5.0); Sodium 139 mmol/L (137-145)
[2022-10-25 10:03] LABS: Basophils Percent Auto 0.2 % (0.2-1.2); Hematocrit 29.6 % (37.0-47.0); Hemoglobin 9.4 g/dL (12.0-15.0); Immature Granulocyte Absolute 0.03 K/mm3 (0.00-0.031); Immature Granulocyte Percent A 0.5 % (0-0.5); Lymphocytes Absolute Auto 0.46 K/mm3 (0.9-3.2); Lymphocytes Percent Auto 8.1 % (18.3-44.2); Mean Corpuscular HGB Conc 31.8 g/dl (32-36); Mean Corpuscular Hemoglobin 32.1 pg (26-34); Mean Platelet Volume 9.1 fl (7.4-10.4); Monocytes Absolute Auto 0.2 K/mm3 (0.1-0.6); Monocytes Percent Auto 3.9 % (2.6-8.5); Neutrophils Percent Auto 87.3 % (45.5-73.1); Platelet Count Result 380 k/mm3 (150-375); Red Blood Count 2.93 M/mm3 (4.2-5.4); White Blood Count 5.7 K/mm3 (4.5-10.0)
--- NOTE | 2022-10-25 11:53 | PCCCNOTE ---
spoke with RETA Whyte, Via the phone as patient is covid + and on isolation. patient came from [facility], however the family is interested in resuming hospice services at [facility]. Pato stated that he would like for patients pain to be better controlled, and her PNA to be treated for a couple of days to see if patient progresses any, then after 48 hours of treatment if shes not responding, DC on Hospice. CC will continue to follow for any needs that may arise.
--- NOTE | 2022-10-25 11:53 | PC.NURSE ---
Family updated by Alison about procedure to reduce hip. Patient consent for procedure signed by this RN and regla Arias RN due to patient being unable to sign
[2022-10-25] MEDS: SODIUM CHLORIDE 0.9% IV 1,000 ML 500 ML (12:58)
[2022-10-25] MEDS: SODIUM CHLORIDE 0.9% IV 1,000 ML 1000 ML (13:39)
--- NOTE | 2022-10-25 14:32 | PC.NURSE ---
Sedation performed by CLINTON Rosas and Dr Yadav. Patient given 20mg of propofol at [address] Yadav. patient still fully awake. Another 20mg of propofol given by Dr Yadav at 1322, patient remains awake. 30mg of ketamine given by Dr Yadav at 1322-patient is sleepy at this time. CLINTON Rosas reduced patient's hip at 1324-radiology called for scan. Pulses palpable in left foot after reduction and patient's pain is relieved. Patient denies any pain after procedure. Patient back to baseline at 1330.
--- NOTE | 2022-10-25 15:15 | PM.IMHP ---
H&P: HPI History of Present Illness Date/Time: 10/25/22 15:15 Chief Complaint: Left hip pain. Narrative: This is an 82-year-old female with dementia, chronic obstructive pulmonary disease, hypertension, heart failure with preserved ejection fraction, and paroxysmal atrial fibrillation on chronic anticoagulation who presented to the emergency department via EMS from for evaluation of left hip pain. She is known to the hospitalist service from several recent admissions. Most recently she was admitted on 10/10/2022 with a left hip fracture which was repaired with bipolar hemiarthroplasty per Dr. Matthews and she was discharged to [facility] for rehab on 10/16/2022. she is a poor historian given her dementia and thus she is not able to provide an accurate history. According to the triage note she had an unwitnessed fall today and was reportedly found lying on her left side complaining of left hip pain. The patient tells me that she was up in the bathroom and slipped on a wet floor however a couple of minutes after she tells me that she has not been out of bed for several months. Imaging of the hip showed a superior lateral dislocation of the left hip hemiarthroplasty which was reduced in the ED. Family members did not wish for her to return back to [facility] and in instead they wanted her to go back to her assisted living facility ([facility]) with hospice. Unfortunately this was unable to be arranged in the emergency department and she is being admitted overnight until hospice can be set up. at the time my evaluation she feels just fine and reports that she no longer has any hip pain. She is not certain if she had any head trauma or loss of consciousness in the fall. Review of Systems Review of Systems: Twelve systems were reviewed but the act reassessed see of such is questionable given her significant dementia. Chest x-ray she today showed improving airspace disease and is noted that she recently had pneumonia attributed to COVID. She denied headache, vertigo, focal weakness, paresthesias, chest pain, shortness a breath, nausea, vomiting, diarrhea, dysuria, and cold and flu symptoms. She also denied paresthesias in the left leg. [facility] Past Medical History Medical History (Updated 10/25/22 @ 23:28 by Rina Gramajo PA-C) Chronic anticoagulation Chronic obstructive pulmonary disease Dementia Heart failure with preserved ejection fraction 10/03/22 Echo- normal LV systolic function, EF 60-65%, diastolic dysfunction intermediate. Hypertension Paroxysmal atrial fibrillation Surgical History Surgical History (Updated 10/25/22 @ 23:23 by Rina Gramajo PA-C) History of left hip replacement (10/2022) Repair left hip fracture, bipolar hemiarthroplasty. Family History Family History Other Family history unknown Social History Social History (Updated 10/25/22 @ 23:23 by Rina Gramajo PA-C) Social History: Surrogate medical decision maker: Dev Akhtar, son. Code status: Do not resuscitate. Years smoked: 25 Smoking status: Unknown if ever smoked Additional smoking assessment comments: Smoke for 23 years. Unk information. Alcohol intake: unknown Substance use: former Substance use type: does not use Additional living arrangements comments: Assisted living at [facility]. Spiritual care concerns: No Meds Home Medications and Allergies Home Medications Medication Instructions Recorded Confirmed Type acetaminophen 325 mg tablet 650 mg PO Q4H PRN Pain 10/02/22 10/25/22 History albuterol sulfate 90 mcg/actuation 2 puff inhalation Q6H PRN 10/02/22 10/25/22 History aerosol inhaler Shortness Of Breath amiodarone 200 mg tablet 200 mg PO DAILY 10/02/22 10/25/22 History amlodipine 5 mg tablet (Norvasc) 5 mg PO DAILY 10/02/22 10/25/22 History apixaban 2.5 mg tablet (Eliquis) 2.5 mg PO BID 10/02/22 10/25/22 History aspirin 81 mg table
--- NOTE | 2022-10-25 17:15 | ADMGEN ---
This patient, Paola Akhtar, was admitted to Medical Room 258-01. Patient/family oriented to hospital policies and general routines including ID bracelet, bed and alarms, visiting hours, pain management, procedures, bathroom and other care routines, personal items, smoking policy, room service/diet, and visiting hours. Information on how to activate the Rapid Response Team has been discussed. Patient/Family are encouraged to report perceived risks to care and to ask questions if they do not understand what they are told or what they should do.
[2022-10-25] MEDS: POTASSIUM CHLORIDE 20 MEQ TABLET 40 MEQ PO (23:48)
[2022-10-26] VITALS (10 sets, daily range): BP systolic 116–164; BP diastolic 56–68; PULSE 57–80; RESP 18–22; TEMP 36.4–36.5; O2SAT 94–100
[2022-10-26 05:49] LABS: Anion Gap 2 mmol/L (8-16); Blood Urea Nitrogen 22 mg/dL (7-17); Calcium 7.5 mg/dL (8.4-10.2); Carbon Dioxide 35 mmol/L (22-30); Chloride 106 mmol/L (98-107); Estimated CRCL calculation 37 ml/min; Estimated Glomerular Filt Rate > 60; Glucose 105 mg/dL (65-110); Magnesium 1.7 mg/dL (1.6-2.3); Potassium 3.8 mmol/L (3.4-5.0); Sodium 143 mmol/L (137-145)
--- NOTE | 2022-10-26 06:23 | PC.NURSE ---
4353 PT REFUSING TO LET ME PLACE A NEW IV AFTER RIPPING HER OTHER ONE OUT. PT IS ALSO PULLING AT PENA AND HAS RIPPED OFF STAT LOCK.
[2022-10-26 08:49] LABS: Basophils Percent Auto 0.2 % (0.2-1.2); Hematocrit 28.8 % (37.0-47.0); Hemoglobin 8.9 g/dL (12.0-15.0); Immature Granulocyte Absolute 0.05 K/mm3 (0.00-0.031); Immature Granulocyte Percent A 0.5 % (0-0.5); Lymphocytes Absolute Auto 0.69 K/mm3 (0.9-3.2); Lymphocytes Percent Auto 7.5 % (18.3-44.2); Mean Corpuscular HGB Conc 30.9 g/dl (32-36); Mean Corpuscular Hemoglobin 32.1 pg (26-34); Mean Platelet Volume 9.7 fl (7.4-10.4); Monocytes Absolute Auto 0.8 K/mm3 (0.1-0.6); Monocytes Percent Auto 8.2 % (2.6-8.5); Neutrophils Absolute Auto 7.7 K/mm3 (1.3-6.7); Neutrophils Percent Auto 83.6 % (45.5-73.1); Platelet Count Result 380 k/mm3 (150-375); Red Blood Count 2.77 M/mm3 (4.2-5.4); Red Cell Distribution Width 14.4 % (11.5-14.5); White Blood Count 9.2 K/mm3 (4.5-10.0)
[2022-10-26 08:56] LABS: Alanine Aminotransferase 27 U/L (6-35); Albumin Level 2.7 g/dL (3.5-5.1); Alkaline Phosphatase 117 U/L (38-126); Anion Gap -2 mmol/L (8-16); Aspartate Amino Transferase 29 U/L (14-36); Bilirubin,Total 0.4 mg/dL (0.2-1.3); Blood Urea Nitrogen 22 mg/dL (7-17); Calcium 7.6 mg/dL (8.4-10.2); Carbon Dioxide 38 mmol/L (22-30); Chloride 104 mmol/L (98-107); Estimated CRCL calculation 33 ml/min; Estimated Glomerular Filt Rate 60; Glucose 102 mg/dL (65-110); Potassium 3.7 mmol/L (3.4-5.0); Sodium 140 mmol/L (137-145)
[2022-10-26] MEDS: ASPIRIN 81 MG ENTERIC TABLET PO (08:58)
[2022-10-26] MEDS: METOPROLOL TARTRATE 50 MG TAB 100 MG PO ×2 (08:58→20:18)
[2022-10-26] MEDS: LORazepam (*CRX) 0.5 MG TABLET PO ×2 (08:58→22:35)
[2022-10-26] MEDS: SENNOSIDES 8.6 MG TABLET PO (08:58)
[2022-10-26] MEDS: AMIODARONE HCL 200 MG TABLET PO (08:59)
[2022-10-26] MEDS: APIXABAN 2.5 MG TABLET PO ×2 (08:59→20:19)
[2022-10-26] MEDS: amLODIPine BESYLATE 5 MG TABLET PO (08:59)
--- NOTE | 2022-10-26 08:59 | PC.NURSE ---
left message with pharmacy to get sent PO lasix 20 mg for 0900, will give when received
[2022-10-26] MEDS: FUROSEMIDE INJ 40 MG/4 ML VIAL IV PUSH ×2 (09:37→17:26)
--- NOTE | 2022-10-26 12:15 | P.PNIM_ITS ---
Progress Note: A&P Assessment and Plan (1) Dislocation of internal left hip prosthesis: Code(s): T84.021A - Dislocation of internal left hip prosthesis, initial encounter Status: Acute Assessment and Plan: * presented with left hip pain after an unwitnessed fall * Dislocation noted on xray * Reduced in the ed * PT/OT ordered since the hospice plans are now up in the air (2) Pulmonary infiltrates: Code(s): R91.8 - Other nonspecific abnormal finding of lung field Status: Acute Assessment and Plan: * Chest xray noted persistent by improving PNA * On 3LNC which it appears she is always on oxygen * Continue to trend respiratory status (3) Heart failure with preserved ejection fraction: Code(s): I50.30 - Unspecified diastolic (congestive) heart failure Status: Acute Assessment and Plan: * Echo from 10/03/22 showed EF of 60-65% with indeterminate diastolic dysfunction * Stop home medication and initiate IV lasix BID * More than likely chronic diastolic heart failure with exacerbation * Exacerbation with shortness of breath, wet cough, and panting * BNP ordered for the am * Trend urine output * daily weight (4) Admission for hospice care: Code(s): Z51.5 - Encounter for palliative care Status: Acute Assessment and Plan: * Family requesting hospice at [place] (5) Paroxysmal atrial fibrillation: Code(s): I48.0 - Paroxysmal atrial fibrillation Status: Chronic Assessment and Plan: * HR controlled * Continue home medications, metoprolol, Eliquis, clonidine, aspirin, and amiodarone * Trend HR * Adjust therapy as indicated (6) Hypertension: Qualifiers: Hypertension type: primary hypertension Qualified Code(s): I10 - Essential (primary) hypertension Code(s): I10 - Essential (primary) hypertension Status: Acute Assessment and Plan: * Current BP is 156/67 * Continue home medications * Trend BP * Adjust therapy as indicated (7) Anemia: Code(s): D64.9 - Anemia, unspecified Status: Acute Assessment and Plan: * H&H slightly low 8.9/28.8 * anemia labs in the a.m. * continue to trend H&H * supplement as indicated * most likely iron deficiency anemia due to recent procedure of the hip Plan Calcium is low, corrected calcium is 8.2 due to low albumin Time Spent With Patient Time with patient: Greater than 35 minutes Subjective Date/time seen: 10/26/22 1215 Interval history: 10/26/221214 patient seems to be okay. She is slightly restless. She did state that she had no issues including chest pain, nausea, vomiting, diarrhea, constipation, weakness or fatigue. She did state that she is short of breath however she stated that she has not had her oxygen norris she has been here. She was also inquiring about her leg swelling which she had none. She also stated that she has been having a cough and she performed her cough for me and it was wet. 10/25/22? 15:15 This is an 82-year-old female with dementia, chronic obstructive pulmonary disease, hypertension, heart failure with preserved ejection fraction, and paroxysmal atrial fibrillation on chronic anticoagu
--- NOTE | 2022-10-26 12:15 | PM.IMPN ---
Progress Note: A&P Assessment and Plan (1) Dislocation of internal left hip prosthesis: Code(s): T84.021A - Dislocation of internal left hip prosthesis, initial encounter Status: Acute Assessment and Plan: presented with left hip pain after an unwitnessed fall Dislocation noted on xray Reduced in the ed PT/OT ordered since the hospice plans are now up in the air (2) Pulmonary infiltrates: Code(s): R91.8 - Other nonspecific abnormal finding of lung field Status: Acute Assessment and Plan: Chest xray noted persistent by improving PNA On 3LNC which it appears she is always on oxygen Continue to trend respiratory status (3) Heart failure with preserved ejection fraction: Code(s): I50.30 - Unspecified diastolic (congestive) heart failure Status: Acute Assessment and Plan: Echo from 10/03/22 showed EF of 60-65% with indeterminate diastolic dysfunction Stop home medication and initiate IV lasix BID More than likely chronic diastolic heart failure with exacerbation Exacerbation with shortness of breath, wet cough, and panting BNP ordered for the am Trend urine output daily weight (4) Admission for hospice care: Code(s): Z51.5 - Encounter for palliative care Status: Acute Assessment and Plan: Family requesting hospice at [facility] (5) Paroxysmal atrial fibrillation: Code(s): I48.0 - Paroxysmal atrial fibrillation Status: Chronic Assessment and Plan: HR controlled Continue home medications, metoprolol, Eliquis, clonidine, aspirin, and amiodarone Trend HR Adjust therapy as indicated (6) Hypertension: Qualifiers: Hypertension type: primary hypertension Qualified Code(s): I10 - Essential (primary) hypertension Code(s): I10 - Essential (primary) hypertension Status: Acute Assessment and Plan: Current BP is 156/67 Continue home medications Trend BP Adjust therapy as indicated (7) Anemia: Code(s): D64.9 - Anemia, unspecified Status: Acute Assessment and Plan: H&H slightly low 8.9/28.8 anemia labs in the a.m. continue to trend H&H supplement as indicated most likely iron deficiency anemia due to recent procedure of the hip Plan Calcium is low, corrected calcium is 8.2 due to low albumin Time Spent With Patient Time with patient: Greater than 35 minutes Subjective Date/time seen: 10/26/22 121 Interval history: 12/18/22 1215 patient seems to be okay. She is slightly restless. She did state that she had no issues including chest pain, nausea, vomiting, diarrhea, constipation, weakness or fatigue. She did state that she is short of breath however she stated that she has not had her oxygen norris she has been here. She was also inquiring about her leg swelling which she had none. She also stated that she has been having a cough and she performed her cough for me and it was wet. 10/25/22? 15:15 This is an 82-year-old female with dementia, chronic obstructive pulmonary disease, hypertension, heart failure with preserved ejection fraction, and paroxysmal atrial fibrillation on chronic anticoagulation who presented to the emergency department via EMS from for evaluation of left hip pain. She is known to the hospitalist service from several recent admissions. Most recently she was admitted on 10/10/2022 with a left hip fracture which was repaired with bipolar hemiarthroplasty per Dr. Matthews and she was discharged to [facility] for rehab on 10/16/2022. she is a poor historian given her dementia and thus she is not able to provide an accurate history. According to the triage note she had an unwitnessed fall today and was reportedly found lying on her left side complaining of left hip pain. The patient tells me that she was up in
[2022-10-26 13:16] LABS: Iron 40 ug/dL (37-170)
[2022-10-26 13:23] LABS: Transferrin 163 mg/dL (206-381)
[2022-10-26 13:26] LABS: Percent Iron Saturation 19 % (20-50)
[2022-10-26 14:22] LABS: Folic Acid 11.6 ng/mL (2.76->20)
--- NOTE | 2022-10-26 23:27 | PC.NURSE ---
2325 PT PULLED OUT PENA. BULB STILL INFLATED. PT HAS VAGINAL BLEEDING FROM TRAUMA BUT DOES NOT COMPLAIN OF ANY PAIN.
--- NOTE | 2022-10-27 02:01 | PC.NURSE ---
PT IS AGITATED AND JUMPING OUT OF BED. 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 PT IS UNCOOPERATIVE AND RESTLESS. CURRENTLY SITTING WITH PT BECAUSE SHE REFUSES TO STAY IN THE BED AND CONTINUES TO SET THE ALARM OFF.
[2022-10-27] MEDS: HALOPERIDOL LACTATE 5 MG/ML VIAL IM (03:22)
[2022-10-27 05:33] LABS: Basophils Percent Auto 0.2 % (0.2-1.2); Eosinophils Absolute Auto 0.3 K/mm3 (0-0.3); Hematocrit 29.4 % (37.0-47.0); Hemoglobin 9.4 g/dL (12.0-15.0); Immature Granulocyte Absolute 0.07 K/mm3 (0.00-0.031); Immature Granulocyte Percent A 0.8 % (0-0.5); Lymphocytes Absolute Auto 2.08 K/mm3 (0.9-3.2); Lymphocytes Percent Auto 22.7 % (18.3-44.2); Mean Corpuscular Hemoglobin 31.9 pg (26-34); Mean Corpuscular Volume 99.7 fl (80-100); Mean Platelet Volume 9.1 fl (7.4-10.4); Monocytes Percent Auto 10.8 % (2.6-8.5); Neutrophils Absolute Auto 5.7 K/mm3 (1.3-6.7); Neutrophils Percent Auto 62.5 % (45.5-73.1); Platelet Count Result 383 k/mm3 (150-375); Red Blood Count 2.95 M/mm3 (4.2-5.4); White Blood Count 9.2 K/mm3 (4.5-10.0)
[2022-10-27 05:47] LABS: Alanine Aminotransferase 33 U/L (6-35); Albumin Level 3.3 g/dL (3.5-5.1); Alkaline Phosphatase 142 U/L (38-126); Anion Gap 6 mmol/L (8-16); Aspartate Amino Transferase 48 U/L (14-36); Bilirubin,Total 0.5 mg/dL (0.2-1.3); Blood Urea Nitrogen 29 mg/dL (7-17); Calcium 7.5 mg/dL (8.4-10.2); Carbon Dioxide 37 mmol/L (22-30); Chloride 95 mmol/L (98-107); Estimated CRCL calculation 30 ml/min; Estimated Glomerular Filt Rate 53; Glucose 81 mg/dL (65-110); Magnesium 1.4 mg/dL (1.6-2.3); Potassium 3.2 mmol/L (3.4-5.0); Sodium 138 mmol/L (137-145)
[2022-10-27 06:00] VITALS: BP 149/47; PULSE 58; RESP 18; TEMP 36.6; O2SAT 100
--- NOTE | 2022-10-27 06:00 | PM.DS ---
DS: Admitting Diagnosis Discharge Date 10/27/22 0600 Admitting Diagnosis left hip dislocation DS: Discharge Diagnosis Discharge Diagnosis (1) Dislocation of internal left hip prosthesis: Code(s): T84.021A - Dislocation of internal left hip prosthesis, initial encounter Status: Acute Assessment and Plan: presented with left hip pain after an unwitnessed fall Dislocation noted on xray Reduced in the ed PT/OT ordered since the hospice plans are now up in the air (2) Pulmonary infiltrates: Code(s): R91.8 - Other nonspecific abnormal finding of lung field Status: Acute Assessment and Plan: Chest xray noted persistent by improving PNA On 2LNC which it appears she is always on oxygen Continue to trend respiratory status (3) Heart failure with preserved ejection fraction: Code(s): I50.30 - Unspecified diastolic (congestive) heart failure Status: Acute Assessment and Plan: Echo from 10/03/22 showed EF of 60-65% with indeterminate diastolic dysfunction resume home lasix More than likely chronic diastolic heart failure with exacerbation Exacerbation with shortness of breath, wet cough, and panting BNP ordered for the am Trend urine output daily weight (4) Admission for hospice care: Code(s): Z51.5 - Encounter for palliative care Status: Acute Assessment and Plan: Family requesting hospice at [place] (5) Paroxysmal atrial fibrillation: Code(s): I48.0 - Paroxysmal atrial fibrillation Status: Chronic Assessment and Plan: HR controlled Continue home medications, metoprolol, Eliquis, clonidine, aspirin, and amiodarone Trend HR Adjust therapy as indicated (6) Hypertension: Qualifiers: Hypertension type: primary hypertension Qualified Code(s): I10 - Essential (primary) hypertension Code(s): I10 - Essential (primary) hypertension Status: Acute Assessment and Plan: Current BP is 149/47 Continue home medications Trend BP Adjust therapy as indicated (7) Anemia: Code(s): D64.9 - Anemia, unspecified Status: Acute Assessment and Plan: H&H slightly low 9.4/29.4 anemia labs Iron 40, TIBC 209,% saturation 19, transferrin 163, ferritin 376 B12 918, folate 11.6 continue to trend H&H supplement as indicated most likely iron deficiency anemia due to recent procedure of the hip Plan Calcium is low, corrected calcium is 8.2 due to low albumin DS: Summary Hospital Course Hospital Course: patient is an 82-year-old female with a past medical history of dementia, COPD, hypertension, heart failure, AFib who presented the emergency department after a fall. X-ray showed that the patient had a left hip dislocation. Patient recently underwent a hip replacement and has been [facility] for rehab. Since arrival patient has been stable with no complaints. BNP was slightly elevated patient was given IV Lasix. Patient was also noted to have anemia however anemia labs do not indicate any supplementation at this time. Family discussed and decided admit the patient to hospice at [facility]. Patient is stable for discharge and has no new complaints today. She currently denies any chest pain, shortness a breath, nausea, vomiting, diarrhea, constipation, weakness or fatigue. Patient has been able to get up to the bedside and has been doing well with mobility. Spoke with Stacey from [facility] who is requesting some PRN haldol since the patient does have some agitation and can get combative. PRN order given for safety. Status at Discharge Functional status at discharge: uses cane/walker Overall status at discharge: patient is progressing back to baseline Time Spent with Patient Time attestation: Total time spent providing and/or coordinating dischar
--- NOTE | 2022-10-27 06:00 | P.DS_ITS ---
DS: Admitting Diagnosis Discharge Date 10/27/22 0600 Admitting Diagnosis left hip dislocation DS: Discharge Diagnosis Discharge Diagnosis (1) Dislocation of internal left hip prosthesis: Code(s): T84.021A - Dislocation of internal left hip prosthesis, initial encounter Status: Acute Assessment and Plan: * presented with left hip pain after an unwitnessed fall * Dislocation noted on xray * Reduced in the ed * PT/OT ordered since the hospice plans are now up in the air (2) Pulmonary infiltrates: Code(s): R91.8 - Other nonspecific abnormal finding of lung field Status: Acute Assessment and Plan: * Chest xray noted persistent by improving PNA * On 2LNC which it appears she is always on oxygen * Continue to trend respiratory status (3) Heart failure with preserved ejection fraction: Code(s): I50.30 - Unspecified diastolic (congestive) heart failure Status: Acute Assessment and Plan: * Echo from 10/03/22 showed EF of 60-65% with indeterminate diastolic dysfunction * resume home lasix * More than likely chronic diastolic heart failure with exacerbation * Exacerbation with shortness of breath, wet cough, and panting * BNP ordered for the am * Trend urine output * daily weight (4) Admission for hospice care: Code(s): Z51.5 - Encounter for palliative care Status: Acute Assessment and Plan: * Family requesting hospice at [place] (5) Paroxysmal atrial fibrillation: Code(s): I48.0 - Paroxysmal atrial fibrillation Status: Chronic Assessment and Plan: * HR controlled * Continue home medications, metoprolol, Eliquis, clonidine, aspirin, and amiodarone * Trend HR * Adjust therapy as indicated (6) Hypertension: Qualifiers: Hypertension type: primary hypertension Qualified Code(s): I10 - Essential (primary) hypertension Code(s): I10 - Essential (primary) hypertension Status: Acute Assessment and Plan: * Current BP is 149/47 * Continue home medications * Trend BP * Adjust therapy as indicated (7) Anemia: Code(s): D64.9 - Anemia, unspecified Status: Acute Assessment and Plan: * H&H slightly low 9.4/29.4 * anemia labs Iron 40, TIBC 209,% saturation 19, transferrin 163, ferritin 376 B12 918, folate 11.6 * continue to trend H&H * supplement as indicated * most likely iron deficiency anemia due to recent procedure of the hip Plan Calcium is low, corrected calcium is 8.2 due to low albumin DS: Summary Hospital Course Hospital Course: patient is an 82-year-old female with a past medical history of dementia, COPD, hypertension, heart failure, AFib who presented the emergency department after a fall. X-ray showed that the patient had a left hip dislocation. Patient recently underwent a hip replacement and has been [facility] for rehab. Since arrival patient has been stable with no complaints. BNP was slightly elevated patient was given IV Lasix. Patient was also noted to have anemia however anemia labs do not indicate any supplementation at this time. Family discussed and decided admit the patient to hospice at [place]. Patient is stable for discharge and
[2022-10-27 06:42] VITALS: PULSE 60; RESP 18
[2022-10-27] MEDS: ALBUTEROL SULFATE (*SP) AEROSOL 1 PUFF 2 PUFF INHALATION (06:42)
[2022-10-27 09:23] VITALS: BP 140/54; PULSE 78; RESP 20; O2SAT 98
[2022-10-27 09:24] VITALS: PULSE 78
[2022-10-27] MEDS: AMIODARONE HCL 200 MG TABLET PO (09:24)
[2022-10-27 09:25] VITALS: PULSE 78
[2022-10-27] MEDS: POTASSIUM CHLORIDE 20 MEQ TABLET 40 MEQ PO (09:25)
[2022-10-27] MEDS: amLODIPine BESYLATE 5 MG TABLET PO (09:25)
[2022-10-27] MEDS: ASPIRIN 81 MG ENTERIC TABLET PO (09:25)
[2022-10-27] MEDS: SENNOSIDES 8.6 MG TABLET PO (09:25)
[2022-10-27] MEDS: APIXABAN 2.5 MG TABLET PO (09:25)
[2022-10-27] MEDS: METOPROLOL TARTRATE 50 MG TAB 100 MG PO (09:25)
[2022-10-27 09:30] VITALS: O2SAT 97
[2022-10-27] MEDS: FUROSEMIDE INJ 40 MG/4 ML VIAL IV PUSH (09:32)
[2022-10-27] MEDS: MAGNESIUM SULF 4 GM/WATER100ML 4 GM/100 ML BAG IVPB (11:13)
== END 2022-10-27 14:08 | disposition hospice, home (50) | DRG 559 ==
LOC: ANHED 13:38 → ANH2MED 16:40
PROVIDERS: Physician Assistant; Admitting Provider Internal Medicine; Emergency Provider Emergency Medicine; PCP Nurse Practitioner Family; Visit Provider Nurse Practitioner
DX: T84.021A Dislocation of internal left hip prosthesis, initial encounter (principal); I50.33 Acute on chronic diastolic (congestive) heart failure; I48.0 Paroxysmal atrial fibrillation; I11.0 Hypertensive heart disease with heart failure; D64.9 Anemia, unspecified; Z79.51 Long term (current) use of inhaled steroids; Z79.82 Long term (current) use of aspirin; Z79.899 Other long term (current) drug therapy
CPT/HCPCS: 27266; 36415; 70450; 71045; 72125; 72170; 73502; 80048; 80053; 81003; 82607; 82728; 82746; 83540; 83550; 83735; 84443; 84466; 85025; 94640; 96374; 96375; 99285; A9270; G0378; J1630; J1940; J2270; J3475; J7030